=== PATIENT | female | born 1940 | race Caucasian/White ===

== ENCOUNTER 2017-07-30 20:17 | Emergency (ER) | payer MEDICARE, OTHER ==
[2017-07-30 20:26] VITALS: TEMP 98.6; BMI 20.2
--- NOTE | 2017-07-30 20:54 | PDOC ---
History of Present Illness <Neville Alvarado - Last Filed: 07/30/17 22:08> - General History Source: Patient, Family Exam Limitations: No Limitations - History of Present Illness Initial Comments: 07/30/17 23:39 The patient is a 77 year old female, with a significant past medical history of hypertension, gastritis, breast cancer, and anxiety, who presents to the emergency department with epigastric discomfort for approximately 1 week. The patient reports intermittent epigastric discomfort radiating up her chest into her throat and head. She describes her epigastric discomfort as something stuck to her abdominal wall. She reports some nausea, but denies any vomiting, diarrhea, or constipation. Patient reports decreased appetite, but states her symptoms are not related to food. Patient endorses mild headache, but denies any changes in vision, numbness, weakness, tingling, or LOC. Patient reports taking Advil for her discomfort with mild relief of symptoms. Patient states her symptoms are usually brought on by stress. She reports some nasal congestion , sore throat, and shortness of breath, but denies any fever, chills, cough, leg swelling or dizziness. She denies any chest pain, diaphoresis, or palpitations. She denies any recent travel or sick contacts. Allergies: NKDA Past Surgical History: Appendectomy, Cholecystectomy, Cardiac catheterization, spinal sx Social History: Non smoker. No ETOH or recreational drug use. PCP: Dr. Mamie Burr <Page Cortes - Last Filed: 07/30/17 23:40> - General Chief Complaint: Weakness Stated Complaint: FATIGUE Time Seen by Provider: 07/30/17 20:44 Past History - Past Medical History Cancer: Yes (BREAST rt) Cardiac Disorders: Yes COPD: No HTN: Yes - Surgical History Abdominal Surgery: Yes (CHOLYCYSTECTOMY) Cardiac Surgery: Yes (CATHETERIZATION) Cholecystectomy: Yes Neurologic Surgery: Yes (SPINAL SX) - Immunization History Td Vaccination: Yes Immunization Up to Date: Yes - Suicide/Smoking/Psychosocial Hx Smoking Status: No Smoking History: Never smoked Years of Tobacco Use: 0 Have you smoked in the past 12 months: No Number of Cigarettes Smoked Daily: 0 Cigars Per Day: 0 Hx Alcohol Use: No Drug/Substance Use Hx: No Substance Use Type: None Hx Substance Use Treatment: No <Neville Alvarado - Last Filed: 07/30/17 22:08> <Page Cortes - Last Filed: 07/30/17 23:40> - Past Medical History Allergies/Adverse Reactions: Allergies Allergy/AdvReac Type Severity Reaction Status Date / Time No Known Drug Allergies Allergy Verified 07/30/17 20:23 SHRIMP Allergy Uncoded 07/30/17 20:23 Home Medications: Ambulatory Orders Lisinopril [Prinivil] 20 mg PO DAILY 12/31/15 Tamoxifen Citrate 20 mg PO DAILY 12/31/15 Calcium Carbonate/Vitamin D3 [Oysco D Tablet] 1 each PO DAILY 03/05/16 Ranitidine [Zantac -] 150 mg PO DAILY #30 tablet 03/05/16 Review of Systems - Review of Systems Able to Perform ROS?: Yes Comments:: 07/30/17 23:39 CONSTITUTIONAL: No reported: Fever, Chills, Diaphoresis, Generalized Weakness, Malaise, Loss of Appetite HEENT: +Nasal congestion, +throat discomfort No reported: Rhinorrhea, Throat Swelling, Difficulty Swallowing, Mouth Swelling , Ear Pain, Eye Pain, Visual Changes CARDIOVASCULAR: No reported: Chest Pain, Syncope, Palpitations, Irregular Heart Rate, Lightheadedness, Peripheral Edema RESPIRATORY: +Shortness of breath No reported: Cough, SOB with Exertion, Orthopnea, Wheezing, Stridor, Hemoptysis GASTROINTESTINAL: +Nausea, +abdominal pain(epigastric) No reported: Abdominal Distension, Vomiting, Diarrhea, Constipation, Melena, Hematochezia GENITOURINARY: No reported: Dysuria, Frequency, Urgency, Hesitancy, Flank Pain, Genital Pain MUSCULOSKELETAL: +neck discomfort No reported: Myalgia, Arthralgia, Joint Swelling, Back pain, Neck Pain SKIN: No reported: Rash, Itching, Pallor HEMEATOLOGIC/IMMUNOLOGIC: No reported: Easy Bleeding, Easy Bruising, Lymphadenopathy, Frequent infections ENDOCRINE: +Decreased appetite No reported: Unexplained Weight Gain, Unexplained Weight Loss, Heat Intolerance , Cold Intolerance NEUROLOGIC: +Headache No reported: Focal Weakness, Paresthesias, Vertigo, Lightheadedness, Unsteady Gait, Seizure, Mental Status Changes, Incontinence PSYCHIATRIC: No reported: Anxiety, Depression <Page Cotres - Last Filed: 07/30/17 23:40> *Physical Exam - Vital Signs Last Vital Signs Temp Pulse Resp BP Pulse Ox 98.6 F 72 18 158/99 99 07/30/17 20:20 07/30/17 20:20 07/30/17 20:20 07/30/17 20:20 07/30/17 20:20 <Neville Alvarado - Last Filed: 07/30/17 22:08> - Vital Signs Last Vital Signs Temp Pulse Resp BP Pulse Ox 98.6 F 78 16 154/92 96 07/30/17 20:20 07/30/17 22:25 07/30/17 22:25 07/30/17 22:25 07/30/17 22:25 - Physical Exam Comments: 07/30/17 23:39 GENERAL: The patient is awake, alert, and fully oriented, Nontoxic - in no acute distress. HEAD: Normocephalic, atraumatic. EYES: extraocular movements intact, sclera anicteric, conjunctiva clear. ENT: Normal voice, Moist mucous membranes. NECK: Normal range of motion, supple LUNGS: Breath sounds equal, clear to auscultation bilaterally. No wheezes, no rhonchi, no rales. HEART: Regular rate and rhythm, normal S1 and S2 without murmur, rub or gallop. ABDOMEN: Soft, nontender, normoactive bowel sounds. No guarding, no rebound. . No CVA tenderness EXTREMITIES: Normal range of motion, no edema. No clubbing or cyanosis. No cords, erythema, or tenderness. NEUROLOGICAL: No facial assymetry, Normal speech, PSYCH: Normal mood, normal affect. SKIN: Warm, Dry, normal turgor, <Cortes,Giomilsy - Last Filed: 07/30/17 23:40> Heart Score/ECG Review - ECG Impressions Comment:: 07/30/17 21:42 Twelve-lead EKG was performed and reviewed by me. There is normal sinus rhythm with a normal rate. The axis is normal. The intervals are normal. There is normal R wave progression twi in V3 and V4 twi present on anterior leads on previous ekg <Neville Alvarado - Last Filed: 07/30/17 22:08> ED Treatment Course - LABORATORY CBC & Chemistry Diagram: 07/30/17 21:18 07/30/17 21:18 <Neville Alvarado - Last Filed: 07/30/17 22:08> - LABORATORY CBC & Chemistry Diagram: 07/30/17 21:18 07/30/17 21:18 - ADDITIONAL ORDERS Additional order review: Laboratory Results 07/30/17 07/30/17 07/30/17 21:50 21:18 21:18 Sodium Potassium Chloride Carbon Dioxide Anion Gap BUN Creatinine Creat Clearance w eGFR Random Glucose Calcium Total Bilirubin AST ALT Alkaline Phosphatase Creatine Kinase 61 Troponin I 0.05 Total Protein Albumin Lipase 259 TSH Urine Color Lt. yellow Urine Appearance Clear Urine pH 7.0 Ur Specific [place] <= 1.005 Urine Protein Negative Urine Glucose (UA) Negative Urine Ketones Negative Urine Blood 1+ H Urine Nitrite Negative Urine Bilirubin Negative Urine Urobilinogen 0.2 Urine WBC (Auto) <1 Urine RBC (Auto) 2 07/30/17 21:18 Sodium 134 L Potassium 3.8 Chloride 101 Carbon Dioxide 28 Anion Gap 5 L BUN 12 Creatinine 0.7 Creat Clearance w eGFR > 60 Random Glucose 110 H Calcium 8.6 Total Bilirubin 0.3 AST 16 ALT 23 Alkaline Phosphatase 45 Creatine Kinase Troponin I Total Protein 8.8 H D Albumin 4.2 Lipase TSH 2.38 Urine Color Urine Appearance Urine pH Ur Specific [place] Urine Protein Urine Glucose (UA) Urine Ketones Urine Blood Urine Nitrite Urine Bilirubin Urine Urobilinogen Urine WBC (Auto) Urine RBC (Auto) 07/30/17 21:18 RBC 4.21 MCV 96.0 MCHC 34.4 RDW 13.9 MPV 7.5 D Neutrophils % 66.5 Lymphocytes % 25.8 Monocytes % 5.9 Eosinophils % 1.0 Basophils % 0.8 - Medications Given in the ED: ED Medications Discontinued Medications Generic Name Dose Route Start Last Admin Trade Name Susanne PRN Reason Stop Dose Admin Acetaminophen 650 mg 07/30/17 21:41 07/30/17 22:01 Tylenol - PO 07/30/17 21:42 650 mg ONCE ONE Administration <Page Cortes - Last Filed: 07/30/17 23:40> Medical Decision Making - Medical Decision Making 07/30/17 20:54 77y F hx of breast ca on tamixfen, cad, htn, presents with interemitnt epigastirc pain that radiates up to the throat, nasal congestion, mild headache , without fevers/chills, leg swelling. pt denies any complaints currently beside a mild headache pts exam unremarkble and well appearing differential includes gerd, viral syndrome consider ACS - will obtain screening ekg consider anemia, metabolic dernagement occult uti will obtain labs, ua barb reassess 07/30/17 22:08 pts labs reviewed noted for slightly eelvated protein o f8.8 - barb lhvae pt fu this up as an outpatient trop neg x 1 UA negative pt asypmtpmatoic currently ?consier possible gerd/gastritis will refer pt back to her GI doctor retur nprecautions were discussed I discussed the physical exam findings, ancillary test results and final diagnoses with the patient. I answered all of the patient's questions. The patient was satisfied with the care received and felt comfortable with the discharge plan and treatment plan. The patient will call their primary care physician within 24 hours to arrange follow-up and will return to the Emergency Department with any new, persistent or worsening symptoms. <Neville Alvarado - Last Filed: 07/30/17 22:08> *DC/Admit/Observation/Transfer - Discharge Dispostion Admit: No <Neville Alvarado - Last Filed: 07/30/17 22:08> - Attestations Scribe Attestion: 07/30/17 23:39 Documentation prepared by Page Cortes, acting as medical billing associate for Neville Alvarado MD. <Page Cortes - Last Filed: 07/30/17 23:40> Diagnosis at time of Disposition: Epigastric pain - Discharge Dispostion Disposition: HOME Condition at time of disposition: Improved - Referrals Referrals: Mamie Burr MD [Primary Care Provider] - Kennedy Browning DO [Staff Physician] - - Patient Instructions Printed Discharge Instructions: DI for Epigastric Pain Additional Instructions: Regrese al departamento de emergencia de inmediato con CUALQUIER sntoma nuevo, persistente o que empeora, incluidos los clarita abdominales recurrentes, las fiebres, los escalofros, la incapacidad para tolerar la ingesta oral o cualquier otra inquietud. Mantngase alejado del alcohol, las comidas picantes, la cafena y los alimentos cidos / amargos. [place] maalox si tiene quema para alivio. DEBE llamar y hacer un seguimiento con reid mdico y gastroenterlogo dentro de los 5 gómez para herman evaluacin ms profunda de winter sntomas. Reid visita al departamento de emergencia no est completa sin un seguimiento con reid mdico para la reevaluacin. Los resultados fueron discutidos con usted. Asegrese de que reid mdico revise los resultados de reid evaluacin de emergencia. Return to the emergency department immediately with ANY new, persistent or worsening symptoms including any recurrent abdominal pain, fevers, chills, inability to tolerate oral intake or any other concerns. Stay away from alcohol, spicy foods, caffeine, acidic/sour foods. Take maalox if you have burning for relief. You MUST call and follow up with your doctor and engineering group manager within 5 days for further evaluation of your symptoms. Your emergency department visit is not complete without a followup with your doctor for reevaluation. Results were discussed with you. Please make sure your doctor reviews the results of your emergency evaluation. Print Language: LAO - Post Discharge Activity
[2017-07-30 21:30] LABS: BASOPHIL 0.8 % (0-2.0); MCHC 34.4 g/dl (32.0-36.0); MEAN PLT VOLUME 7.5 fl (7.5-11.1); NEUTROPHILS 66.5 % (42.8-82.8); PLATELET COUNT 195 K/MM3 (134-434); RDW 13.9 % (11.6-15.6); WHITE BLOOD COUNT 6.9 K/mm3 (4.0-10.0)
[2017-07-30] MEDS ORDERED: ACETAMINOPHEN 325 MG TABLET (FP) PO ONE (21:41)
[2017-07-30 21:54] LABS: ALBUMIN 4.2 g/dl (3.4-5.0); ANION GAP 5 (8-16); BILIRUBIN,TOTAL 0.3 mg/dL (0.2-1.0); CALCIUM 8.6 mg/dL (8.5-10.1); CO2 28 mmol/L (21-32); CREATININE 0.7 mg/dL (0.55-1.02); GLUCOSE,RANDOM 110 mg/dL (74-106); SGOT/AST 16 U/L (15-37); SGPT/ALT 23 U/L (12-78); TOT PROT 8.8 g/dl (6.4-8.2)
[2017-07-30 21:55] LABS: TROPONIN I 0.05 ng/ml (0.00-0.05)
[2017-07-30] MEDS ORDERED: ACETAMINOPHEN 325 MG TABLET (FP) ONE (21:58)
[2017-07-30 22:00] LABS: URINE APPEARANCE CLEAR; URINE BILIRUBIN NEGATIVE (NEGATIVE); URINE BLOOD 1+ (NEGATIVE); URINE COLOR LT. YELLOW; URINE GLUCOSE (UA) NEGATIVE (NEGATIVE); URINE KETONE NEGATIVE (NEGATIVE); URINE NITRITE NEGATIVE (NEGATIVE); URINE PROTEIN NEGATIVE (NEGATIVE); URINE UROBILINOGEN 0.2 mg/dL (0.2-1.0)
[2017-07-30 22:03] LABS: ALK PHOS 45 U/L (45-117); THYROID STIMULATING HORMONE 2.38 uIU/ml (0.358-3.74)
[2017-07-30 22:13] LABS: URINE RBC 2 /hpf (0-3); URINE WBC <1 /hpf (3-5)
[2017-07-30 22:26] VITALS: BP 154/92; PULSE 78
--- NOTE | 2017-07-31 08:34 | EKG ---
Test Reason : Blood Pressure : / mmHG Vent. Rate : 063 BPM Atrial Rate : 063 BPM P-R Int : 156 ms QRS Dur : 076 ms QT Int : 446 ms P-R-T Axes : 058 040 104 degrees QTc Int : 456 ms NORMAL SINUS RHYTHM T WAVE ABNORMALITY, CONSIDER ANTERIOR ISCHEMIA ABNORMAL ECG WHEN COMPARED WITH ECG OF 05-MAR-2016 13:05, NONSPECIFIC T WAVE ABNORMALITY, IMPROVED IN INFERIOR LEADS Confirmed by BLANQUITA ERNANDEZ MD ([id number]) on 07/31/2017 8:34:27 AM Referred By: Confirmed By:BLANQUITA ERNANDEZ MD
[2017-07-31 12:34] LABS: URINE LEUK ESTERASE Negative (NEGATIVE)
== END 2017-07-30 22:27 | disposition home or self-care (01) ==
LOC: JER 20:17
DX: R10.13 Epigastric pain (principal); I10 Essential (primary) hypertension; Z85.3 Personal history of malignant neoplasm of breast; F41.9 Anxiety disorder, unspecified; K29.70 Gastritis, unspecified, without bleeding
CPT/HCPCS: 36415; 80053; 81003; 81015; 82550; 83690; 84443; 84484; 85025; 93005; 93010; 99282-25

== ENCOUNTER 2017-09-22 18:45 | Emergency (ER) | payer MEDICARE, OTHER ==
[2017-09-22 19:07] VITALS: BP 155/101; PULSE 58; TEMP 98.4; BMI 29.8
--- NOTE | 2017-09-22 19:09 | PDOC ---
Rapid Medical Evaluation Time Seen by Provider: 09/22/17 19:00 Medical Evaluation: Allergies Allergy/AdvReac Type Severity Reaction Status Date / Time No Known Drug Allergies Allergy Verified 07/30/17 20:23 SHRIMP Allergy Uncoded 07/30/17 20:23 09/22/17 19:01 The patient presents with a chief complaint of: Pleuritic chest pain d/t cough for the last three weeks. Has chills, body aches. Given abx by PCP. Unsure which abx it was. Did not get flu shot I have performed a brief in-person evaluation of this patient; Pertinent physical exam findings: CTAB I have ordered the following: CBC, CMP, PT/INR cardiac labs, EKg, CXr The patient will proceed to the ED for further evaluation.
[2017-09-22 19:49] LABS: BASO % 0.5 % (0-2.0); EOS % 2.3 % (0-4.5); HEMATOCRIT 39.4 % (32.4-45.2); HEMOGLOBIN 13.4 GM/dL (10.7-15.3); LYMPH % 26.9 % (8-40); MCH 32.5 pg (25.7-33.7); MEAN CELL VOLUME 95.6 fl (80-96); MEAN PLT VOLUME 7.2 fl (7.5-11.1); MONO % 7.9 % (3.8-10.2); NEUT % 62.4 % (42.8-82.8); PLATELET COUNT 231 K/MM3 (134-434); RBC 4.12 M/mm3 (3.60-5.2); RDW 13.5 % (11.6-15.6); WHITE BLOOD COUNT 5.6 K/mm3 (4.0-10.0)
[2017-09-22 20:15] LABS: INR 0.97 (0.82-1.09)
[2017-09-22 20:42] LABS: ALBUMIN 3.3 g/dl (3.4-5.0); ALK PHOS 35 U/L (45-117); ANION GAP 9 (8-16); BILIRUBIN,TOTAL 0.2 mg/dL (0.2-1.0); BLOOD UREA NITROGEN 16 mg/dL (7-18); CHLORIDE 100 mmol/L (98-107); CO2 25 mmol/L (21-32); CREATININE 0.7 mg/dL (0.55-1.02); GLUCOSE,RANDOM 100 mg/dL (74-106); POTASSIUM 4.1 mmol/L (3.5-5.1); SGOT/AST 19 U/L (15-37); SGPT/ALT 21 U/L (12-78); SODIUM 134 mmol/L (136-145); TOT PROT 6.9 g/dl (6.4-8.2)
--- NOTE | 2017-09-22 21:49 | PDOC ---
History of Present Illness - General History Source: Patient Exam Limitations: No Limitations - History of Present Illness Initial Comments: 09/23/17 01:01 The patient is a 77 year old female with a significant PMH of CAD, breast CA, and HTN who presents to the emergency department with her daughter with worsening shortness of breath and productive cough beginning approximately 3 weeks ago. She notes associated chest pain and back pain with her cough, which is aggravated by inspiration. The patients daughter reports that the patient was given a 7-day antibiotic course by her PCP which she finished to some relief. The patients daughter also notes that the patient stated she had dysuria and vaginal irritation about 1 week ago. She reports the patient received VESIcare and cream from her [employer]FFIC [employer] earlier in the week. The patient denies headache and dizziness. Denies fever, chills, nausea, vomit, diarrhea and constipation. Denies frequency, urgency and hematuria. Allergies: NKDA Past surgical history: Cholecystectomy. Cardiac catheterization. Spinal surgery. Social history: No reported cigarette, alcohol, or drug use. PCP: Dr. Mamie Burr <Roscoe Paniagua - Last Filed: 09/23/17 01:01> - General History Source: Patient <AspenDany - Last Filed: 09/23/17 01:12> - General Chief Complaint: Cold Symptoms Stated Complaint: CHEST PAIN Time Seen by Provider: 09/22/17 19:00 Past History <Roscoe Paniagua - Last Filed: 09/23/17 01:01> - Past Medical History Cancer: Yes (BREAST rt) Cardiac Disorders: Yes COPD: No DVT: No HTN: Yes - Surgical History Abdominal Surgery: Yes (CHOLYCYSTECTOMY) Cardiac Surgery: Yes (CATHETERIZATION) Cholecystectomy: Yes Neurologic Surgery: Yes (SPINAL SX) - Immunization History Td Vaccination: Yes Immunization Up to Date: Yes - Suicide/Smoking/Psychosocial Hx Smoking Status: No Smoking History: Never smoked Years of Tobacco Use: 0 Have you smoked in the past 12 months: No Number of Cigarettes Smoked Daily: 0 Cigars Per Day: 0 Hx Alcohol Use: No Drug/Substance Use Hx: No Substance Use Type: None Hx Substance Use Treatment: No <Dany Owens - Last Filed: 09/23/17 01:12> - Past Medical History Allergies/Adverse Reactions: Allergies Allergy/AdvReac Type Severity Reaction Status Date / Time No Known Drug Allergies Allergy Verified 09/22/17 19:03 SHRIMP Allergy Uncoded 09/22/17 19:03 Home Medications: Ambulatory Orders Lisinopril [Prinivil] 20 mg PO DAILY 12/31/15 Tamoxifen Citrate 20 mg PO DAILY 12/31/15 Calcium Carbonate/Vitamin D3 [Oysco D Tablet] 1 each PO DAILY 03/05/16 Ranitidine [Zantac -] 150 mg PO DAILY #30 tablet 03/05/16 Meclizine HCl 25 mg PO TID #30 tablet 09/23/17 Review of Systems - Review of Systems Able to Perform ROS?: Yes Comments:: 09/23/17 01:02 CONSTITUTIONAL: Absent: fever, chills, diaphoresis, generalized weakness, malaise, loss of appetite HEENT: Absent: rhinorrhea, nasal congestion, throat pain, throat swelling, difficulty swallowing, mouth swelling, ear pain, eye pain, visual Changes CARDIOVASCULAR: (+) Chest pain only with cough and deep inspiration. Absent: chest pain, syncope, palpitations, irregular heart rate, lightheadedness , peripheral edema RESPIRATORY: (+) Shortness of breath. (+) Productive cough. Absent: dyspnea with exertion, orthopnea, wheezing, stridor, hemoptysis GASTROINTESTINAL: Absent: abdominal pain, abdominal distension, nausea, vomiting, diarrhea, constipation, melena, hematochezia GENITOURINARY: (+) Dysuria and vaginal irritation (resolved). Absent: frequency, urgency, hesitancy, hematuria, flank pain. MUSCULOSKELETAL: (+) Back pain only with cough and deep inspiration. Absent: myalgia, arthralgia, joint swelling SKIN: Absent: rash, itching, pallor HEMATOLOGIC/IMMUNOLOGIC: Absent: easy bleeding, easy bruising, lymphadenopathy, frequent infections ENDOCRINE: Absent: unexplained weight gain, unexplained weight loss, heat intolerance, cold intolerance NEUROLOGIC: Absent: headache, focal weakness or paresthesias, dizziness, unsteady gait, seizure, mental status changes, bladder or bowel incontinence PSYCHIATRIC: Absent: anxiety, depression, suicidal or homicidal ideation, hallucinations. <Roscoe Paniagua - Last Filed: 09/23/17 01:01> *Physical Exam - Vital Signs Last Vital Signs Temp Pulse Resp BP Pulse Ox 98.4 F 58 L 16 155/101 96 09/22/17 19:04 09/22/17 19:04 09/22/17 19:04 09/22/17 19:04 09/22/17 19:04 - Physical Exam Comments: 09/23/17 01:02 GENERAL: Well developed, well nourished. Awake and alert. No acute distress. HEENT: Normocephalic, atraumatic. PERRLA, EOMI. No conjunctival pallor. Sclera are non- icteric. Moist mucous membranes. Oropharynx is clear. NECK: Supple. Full ROM. No JVD. Carotid pulses 2+ and symmetric, without bruits. No thyromegaly. No lymphadenopathy. CARDIOVASCULAR: Regular rate and rhythm. No murmurs, rubs, or gallops. Distal pulses are 2+ and symmetric. PULMONARY: No evidence of respiratory distress. Lungs clear to auscultation bilaterally. No wheezing, rales or rhonchi. ABDOMINAL: Soft. Non-tender. Non-distended. No rebound or guarding. No organomegaly. Normoactive bowel sounds. MUSCULOSKELETAL Normal range of motion at all joints. No bony deformities or tenderness. No CVA tenderness. EXTREMITIES: No cyanosis. No clubbing. No edema. No calf tenderness. SKIN: Warm and dry. Normal capillary refill. No rashes. No jaundice. NEUROLOGICAL: Alert, awake, appropriate. Cranial nerves 2-12 intact. No deficits to light touch and temperature in face, upper extremities and lower extremities. No motor deficits in the in face, upper extremities and lower extremities. Normoreflexic in the upper and lower extremities. Normal speech. Toes are downgoing bilaterally. Gait is normal without ataxia. PSYCHIATRIC: Cooperative. Good eye contact. Appropriate mood and affect. <Roscoe Paniagua - Last Filed: 09/23/17 01:01> - Vital Signs Last Vital Signs Temp Pulse Resp BP Pulse Ox 98.4 F 58 L 16 155/101 96 09/22/17 19:04 09/22/17 19:04 09/22/17 19:04 09/22/17 19:04 09/22/17 19:04 <Dany Owens - Last Filed: 09/23/17 01:12> ED Treatment Course - LABORATORY CBC & Chemistry Diagram: 09/22/17 19:25 09/22/17 19:25 - ADDITIONAL ORDERS Additional order review: Laboratory Results 09/22/17 09/22/17 09/22/17 19:25 19:25 19:25 PT with INR 11.00 INR 0.97 Sodium 134 L Potassium 4.1 Chloride 100 Carbon Dioxide 25 Anion Gap 9 BUN 16 Creatinine 0.7 Creat Clearance w eGFR > 60 Random Glucose 100 Calcium 8.0 L Total Bilirubin 0.2 D AST 19 ALT 21 Alkaline Phosphatase 35 L Creatine Kinase 35 Troponin I 0.02 Total Protein 6.9 Albumin 3.3 L 09/22/17 23:13 Influenza Types A,B Antigen (GIOVANA) - Preliminary Nasopharyngeal Swab - Preliminary 09/22/17 19:25 RBC 4.12 MCV 95.6 MCHC 34.0 RDW 13.5 MPV 7.2 L Neutrophils % 62.4 Lymphocytes % 26.9 Monocytes % 7.9 Eosinophils % 2.3 D Basophils % 0.5 - Medications Given in the ED: ED Medications Discontinued Medications Generic Name Dose Route Start Last Admin Trade Name Freq PRN Reason Stop Dose Admin Meclizine HCl 25 mg 09/22/17 22:10 09/22/17 23:13 Antivert - PO 09/22/17 22:11 25 mg ONCE STA Administration <Roscoe Paniagua - Last Filed: 09/23/17 01:01> - LABORATORY CBC & Chemistry Diagram: 09/22/17 19:25 09/22/17 19:25 - ADDITIONAL ORDERS Additional order review: Laboratory Results 09/22/17 09/22/17 09/22/17 19:25 19:25 19:25 PT with INR 11.00 INR 0.97 Sodium 134 L Potassium 4.1 Chloride 100 Carbon Dioxide 25 Anion Gap 9 BUN 16 Creatinine 0.7 Creat Clearance w eGFR > 60 Random Glucose 100 Calcium 8.0 L Total Bilirubin 0.2 D AST 19 ALT 21 Alkaline Phosphatase 35 L Creatine Kinase 35 Troponin I 0.02 Total Protein 6.9 Albumin 3.3 L 09/22/17 19:25 RBC 4.12 MCV 95.6 MCHC 34.0 RDW 13.5 MPV 7.2 L Neutrophils % 62.4 Lymphocytes % 26.9 Monocytes % 7.9 Eosinophils % 2.3 D Basophils % 0.5 <Dany Owens - Last Filed: 09/23/17 01:12> Medical Decision Making - Medical Decision Making 09/23/17 01:11 Dr. Owens: The scribe's documentation has been prepared under my direction and personally reviewed by me in its entirery. I confirm that the note above accurately reflects all work, treatment, procedures, and medical decision making performed by me. All studies including influenza are negative. patient feels better after meclizine 25mg. Patient will discharged and prescription sent to her pharmacy <Dany Owens - Last Filed: 09/23/17 01:12> *DC/Admit/Observation/Transfer - Attestations Scribe Attestion: 09/23/17 01:02 Documentation prepared by Roscoe Paniagua, acting as medical management trainer for Dany Owens DO. <Roscoe Paniagua - Last Filed: 09/23/17 01:01> - Discharge Dispostion Admit: No <Dany Owens - Last Filed: 09/23/17 01:12> Diagnosis at time of Disposition: Cough - Discharge Dispostion Disposition: HOME Condition at time of disposition: Stable - Prescriptions Prescriptions: Meclizine HCl 25 mg PO TID #30 tablet - Referrals Referrals: Mamie Burr MD [Primary Care Provider] - - Patient Instructions Printed Discharge Instructions: DI for Cough -- Adult Additional Instructions: take medication as directed. Follow up with your primary care doctor for re- evaluation. Return if any problems Print Language: PASHTO - Post Discharge Activity
[2017-09-22] MEDS ORDERED: MECLIZINE HCL 25 MG TABLET (FP) PO STA (22:10)
[2017-09-22] MEDS ORDERED: MECLIZINE HCL 25 MG TABLET (FP) ONE (23:04)
--- NOTE | 2017-09-23 09:45 | EKG ---
Test Reason : Blood Pressure : / mmHG Vent. Rate : 058 BPM Atrial Rate : 058 BPM P-R Int : 134 ms QRS Dur : 074 ms QT Int : 450 ms P-R-T Axes : 036 040 230 degrees QTc Int : 441 ms SINUS BRADYCARDIA T WAVE ABNORMALITY, CONSIDER INFERIOR ISCHEMIA T WAVE ABNORMALITY, CONSIDER ANTERIOR ISCHEMIA ABNORMAL ECG WHEN COMPARED WITH ECG OF 30-JUL-2017 21:07, T WAVE INVERSION NOW EVIDENT IN INFERIOR LEADS Confirmed by ÁNGELA KOTHARI MD ([id number]) on 09/23/2017 9:45:01 AM Referred By: Confirmed By:ÁNGELA KOTHARI MD
== END 2017-09-23 03:07 | disposition home or self-care (01) ==
LOC: JER 18:45
DX: R05 Cough (principal); I25.10 Atherosclerotic heart disease of native coronary artery without angina pectoris; Z98.61 Coronary angioplasty status; I10 Essential (primary) hypertension; Z85.3 Personal history of malignant neoplasm of breast; Z90.49 Acquired absence of other specified parts of digestive tract
CPT/HCPCS: 36415; 71046-TC; 80053; 82550; 84484; 85025; 85610; 87804; 93005; 93010; 99282-25

== ENCOUNTER 2018-02-26 23:27 | Observation (INO) | payer MEDICARE, OTHER ==
[2018-02-26 23:35] VITALS: BMI 26.0
[2018-02-27 00:46] LABS: BASO % 0.4 % (0-2.0); EOS % 0.2 % (0-4.5); HEMATOCRIT 38.1 % (32.4-45.2); HEMOGLOBIN 12.7 GM/dL (10.7-15.3); LYMPH % 6.7 % (8-40); MCH 31.7 pg (25.7-33.7); MCHC 33.2 g/dl (32.0-36.0); MEAN CELL VOLUME 95.5 fl (80-96); MEAN PLT VOLUME 6.8 fl (7.5-11.1); NEUT % 89.7 % (42.8-82.8); PLATELET COUNT 230 K/MM3 (134-434); RBC 3.99 M/mm3 (3.60-5.2); RDW 13.6 % (11.6-15.6); WHITE BLOOD COUNT 13.7 K/mm3 (4.0-10.0)
[2018-02-27 00:48] LABS: URINE APPEARANCE CLEAR; URINE BILIRUBIN NEGATIVE (<2.0 mg/dL); URINE COLOR YELLOW; URINE GLUCOSE (UA) NEGATIVE (NEGATIVE); URINE KETONE 1+ (NEGATIVE); URINE LEUK ESTERASE NEGATIVE (NEGATIVE); URINE NITRITE NEGATIVE (NEGATIVE); URINE PROTEIN NEGATIVE (NEGATIVE); URINE UROBILINOGEN NEGATIVE mg/dL (0.2-1.0)
--- NOTE | 2018-02-27 00:53 | PDOC ---
History of Present Illness - General Chief Complaint: Pain Stated Complaint: STOMACH PAIN Time Seen by Provider: 02/27/18 00:53 - History of Present Illness Initial Comments: 78 year old female with PMH of CAD, breast CA (with relapse, currently in remission), and HTN presenting with intermittent abdominal pain since three days prior. She denies trauma to the abdomen, peculiar food ingestion, vomtiign , diarrhea, constiaption, fevers, chills, or other symptoms. 02/27/18 02:28 Past History - Past Medical History Allergies/Adverse Reactions: Allergies Allergy/AdvReac Type Severity Reaction Status Date / Time No Known Drug Allergies Allergy Verified 09/22/17 19:03 SHRIMP Allergy Uncoded 09/22/17 19:03 Home Medications: Ambulatory Orders Lisinopril [Prinivil] 20 mg PO DAILY 12/31/15 Tamoxifen Citrate 20 mg PO DAILY 12/31/15 Calcium Carbonate/Vitamin D3 [Oysco D Tablet] 1 each PO DAILY 03/05/16 Ranitidine [Zantac -] 150 mg PO DAILY #30 tablet 03/05/16 Meclizine HCl 25 mg PO TID PRN 02/27/18 Cancer: Yes (BREAST rt) Cardiac Disorders: Yes CVA: No COPD: No DVT: No HTN: Yes - Surgical History Abdominal Surgery: Yes (CHOLYCYSTECTOMY) Cardiac Surgery: Yes (CATHETERIZATION) Cholecystectomy: Yes Neurologic Surgery: Yes (SPINAL SX) - Immunization History Td Vaccination: Yes Immunization Up to Date: Yes - Suicide/Smoking/Psychosocial Hx Smoking Status: No Smoking History: Never smoked Years of Tobacco Use: 0 Have you smoked in the past 12 months: No Number of Cigarettes Smoked Daily: 0 Cigars Per Day: 0 Information on smoking cessation initiated: No Hx Alcohol Use: No Drug/Substance Use Hx: No Substance Use Type: None Hx Substance Use Treatment: No Review of Systems - Review of Systems Constitutional: No: Chills, Diaphoresis, Fever, Loss of Appetite HEENTM: No: Recent change in vision, Double Vision Respiratory: No: Cough, Orthopnea, Shortness of Breath, Wheezing Cardiac (ROS): No: Chest Pain, Edema, Irregular Heart Rate ABD/GI: Yes: Poor Appetite. No: Diarrhea, Nausea, Vomiting : No: Burning, Dysuria, Discharge, Frequency Musculoskeletal: No: Back Pain, Joint Pain Integumentary: No: Bruising, Lesions, Lumps Neurological: No: Headache, Numbness, Paresthesia Psychiatric: No: Anxiety, Depression Hematologic/Lymphatic: No: Anemia, Blood Clots *Physical Exam - Vital Signs Last Vital Signs Temp Pulse Resp BP Pulse Ox 98 F 80 20 150/75 96 02/26/18 23:31 02/26/18 23:31 02/26/18 23:31 02/26/18 23:31 02/26/18 23:31 - Physical Exam General Appearance: Yes: Nourished, Appropriately Dressed. No: Apparent Distress HEENT: positive: EOMI, DEBBIE, Normal ENT Inspection. negative: Normal Voice Neck: positive: Trachea midline, Normal Thyroid, Supple. negative: Tender, Rigid Respiratory/Chest: positive: Lungs Clear, Normal Breath Sounds. negative: Chest Tender, Respiratory Distress, Accessory Muscle Use Cardiovascular: positive: Regular Rhythm, Regular Rate Gastrointestinal/Abdominal: positive: Normal Bowel Sounds, Flat, Soft ( epigastric and r). negative: Tender Rectal Exam: positive: heme negative stool, normal exam. negative: hemorrhoids Lymphatic: negative: Adenopathy, Tenderness Musculoskeletal: negative: Normal Inspection, CVA Tenderness Extremity: positive: Normal Capillary Refill, Normal Inspection, Normal Range of Motion. negative: Tender Integumentary: positive: Normal Color, Dry, Warm Neurologic: positive: Fully Oriented, Alert, Normal Mood/Affect, Normal Response , Motor Strength 5/5 ED Treatment Course - LABORATORY CBC & Chemistry Diagram: 02/27/18 07:00 02/27/18 07:00 - ADDITIONAL ORDERS Additional order review: 02/27/18 00:40 RBC 3.99 MCV 95.5 MCHC 33.2 RDW 13.6 MPV 6.8 L Neutrophils % 89.7 H D Lymphocytes % 6.7 L D Monocytes % 3.0 L Eosinophils % 0.2 D Basophils % 0.4 Medical Decision Making - Medical Decision Making 78 year old female with intermittent abdominal pain concerning for likely renal stone as she has a benign abdominal exam, afebrile, and has no previou sabdominal surgeries. Spiral CT demonstrating pelvic enteritis concernign for infection vs. ischemic bowel vs. IBD. Patient admitted for further orkuo and evaluation. Labs did not corroborate ischemia. Abx deferred by admitting team. 02/28/18 04:23 *DC/Admit/Observation/Transfer Diagnosis at time of Disposition: Enteritis - Referrals - Patient Instructions - Post Discharge Activity
[2018-02-27 01:02] LABS: EPI CELLS RARE /HPF (FEW); URINE MUCUS RARE
[2018-02-27 01:13] LABS: ALBUMIN 3.1 g/dl (3.4-5.0); ANION GAP 9 (8-16); BILIRUBIN,TOTAL 0.4 mg/dL (0.2-1.0); BLOOD UREA NITROGEN 15 mg/dL (7-18); CALCIUM 8.1 mg/dL (8.5-10.1); CHLORIDE 100 mmol/L (98-107); CO2 23 mmol/L (21-32); CREATININE 0.6 mg/dL (0.55-1.02); GLUCOSE,RANDOM 144 mg/dL (74-106); POTASSIUM 4.1 mmol/L (3.5-5.1); SGOT/AST 18 U/L (15-37); SGPT/ALT 18 U/L (12-78); SODIUM 132 mmol/L (136-145); TOT PROT 6.7 g/dl (6.4-8.2)
[2018-02-27 01:14] LABS: LIPASE 285 U/L (73-393)
--- NOTE | 2018-02-27 01:15 | PDOC ---
Attending Attestation - HPI HPI: 02/27/18 05:46 The patient is a 78 year old female with past medical history of breast CA, HTN and CAD presents to the emergency department with abdominal pain. The patient presents with a 3 day worsening abdominal pain, without relief. Denies fever, chills, cough or a headache. Denies chest pain or shortness of breath. Denies back pain or neck pain. Denies dysuria, hematuria, frequency or urgency to urinate. Denies nausea, vomiting, diarrhea or constipation. Allergies: NKDA PCP: Mamie Stevens MD - Physicial Exam PE: 02/27/18 05:46 Agree with the resident. <Francine Landurm - Last Filed: 02/27/18 05:46> - Resident Resident Name: Ese Kay - ED Attending Attestation I have performed the following: I have examined & evaluated the patient, The case was reviewed & discussed with the resident, I agree w/resident's findings & plan - Medical Decision Making 02/27/18 03:22 Patient Name: YOEL GUTIÉRREZ THIS IS A PRELIMINARY REPORT FROM [facility] DATE OF SERVICE: 2018-02-27 01:33:56 IMAGES: 491 EXAM: CT abdomen and pelvis without contrast HISTORY: Upper abdominal pain COMPARISON: None. FINDINGS: Lung bases are clear. The visualized cardiac chambers are normal size and configuration. Status post cholecystectomy without biliary dilation. Normal unenhanced liver, pancreas, spleen, adrenal glands and kidneys. The stomach and abdominal small and large bowel are normal. There is no aortic aneurysm. There is no significant retroperitoneal lymphadenopathy. Multiple mildly inflamed pelvic small bowel loops which could be due to infection, inflammatory bowel disease or ischemia.. Pelvic large bowel and appendix are normal. The uterus and adnexal structures are normal. Urinary bladder is unremarkable. There is a small amount of pelvic free fluid. No discrete pelvic lymphadenopathy is identified. There is an old appearing compression fracture T8. Status post T12 vertebroplasty. IMPRESSION: Pelvic enteritis may be due to infection, inflammatory bowel disease or ischemia. 02/27/18 06:28 Pt will be admitted to med surg. Hospitalists will further evaluate patient. At this time, we will not start abx. Surg consult requested for the morning. <Pebbles Veliz - Last Filed: 02/27/18 06:30>
[2018-02-27 01:16] LABS: ALK PHOS 33 U/L (45-117)
--- NOTE | 2018-02-27 03:00 | HP ---
CHIEF COMPLAINT: abdominal pain PCP: Suzanne Burr HISTORY OF PRESENT ILLNESS: This is a 78 year old female with a past medical history of R BrCA and HTN who presented to the ED with sudden onset severe crampy upper abdominal pain x 1 day. She states the pain shoots across the top of her abdomen and back. + nausea , denies vomiting, diarrhea or constipation. Pt daughter also reports body aches , "bone pain" for the past several weeks. She was seen by her PCP for this with no treatment advised. ER course was notable for: (1) WBC 13.7 (2) CT scan with possible pelvic enteritis (3) Sodium 132 Recent Travel: pt denies PAST MEDICAL HISTORY: R BrCA, HTN, osteoporosis PAST SURGICAL HISTORY: R mastectomy then R lumpectomy when CA recurred spinal surgery Social History: Smoking: pt denies Alcohol: pt denies Drugs: pt denies Family History: unk Allergies No Known Drug Allergies Allergy (Verified 09/22/17 19:03) SHRIMP Allergy (Uncoded 09/22/17 19:03) HOME MEDICATIONS: 3 Medication Instructions Recorded Lisinopril [Prinivil] 20 mg PO DAILY 12/31/15 Tamoxifen Citrate 20 mg PO DAILY 12/31/15 Calcium Carbonate/Vitamin D3 1 each PO DAILY 03/05/16 [Oysco D Tablet] Ranitidine [Zantac -] 150 mg PO DAILY #30 tablet 03/05/16 Meclizine HCl 25 mg PO TID PRN 02/27/18 REVIEW OF SYSTEMS CONSTITUTIONAL: Absent: fever, chills, diaphoresis, generalized weakness, malaise, loss of appetite, weight change HEENT: Absent: rhinorrhea, nasal congestion, throat pain, throat swelling, difficulty swallowing, mouth swelling, ear pain, eye pain, visual changes CARDIOVASCULAR: Absent: chest pain, syncope, palpitations, irregular heart rate, lightheadedness , peripheral edema RESPIRATORY: Absent: cough, shortness of breath, dyspnea with exertion, orthopnea, wheezing, stridor, hemoptysis GASTROINTESTINAL: Present: abdominal pain, nausea Absent: abdominal distension, vomiting, diarrhea, constipation, melena, hematochezia GENITOURINARY: Absent: dysuria, frequency, urgency, hesitancy, hematuria, flank pain, genital pain MUSCULOSKELETAL: Absent: myalgia, arthralgia, joint swelling, back pain, neck pain SKIN: Absent: rash, itching, pallor HEMATOLOGIC/IMMUNOLOGIC: Absent: easy bleeding, easy bruising, lymphadenopathy, frequent infections ENDOCRINE: Absent: unexplained weight gain, unexplained weight loss, heat intolerance, cold intolerance NEUROLOGIC: Absent: headache, focal weakness or paresthesias, dizziness, unsteady gait, seizure, mental status changes, bladder or bowel incontinence PSYCHIATRIC: Absent: anxiety, depression, suicidal or homicidal ideation, hallucinations. PHYSICAL EXAMINATION Vital Signs - 24 hr 3 02/26/18 23:31 Temperature 98 F Pulse Rate 80 Respiratory 20 Rate Blood Pressure 150/75 O2 Sat by Pulse 96 Oximetry (%) GENERAL: Awake, alert, and fully oriented, in no acute distress. HEAD: Normal with no signs of trauma. EYES: Pupils equal, round and reactive to light, extraocular movements intact, sclera anicteric, conjunctiva clear. No lid lag. EARS, NOSE, THROAT: Ears normal, nares patent, oropharynx clear without exudates. Moist mucous membranes. NECK: Normal range of motion, supple without lymphadenopathy, JVD, or masses. LUNGS: Breath sounds equal, clear to auscultation bilaterally. No wheezes, and no crackles. No accessory muscle use. HEART: Regular rate and rhythm, normal S1 and S2 without murmur, rub or gallop. ABDOMEN: Soft, tender to deep palpation all 4 quadrants, not distended, normoactive bowel sounds, no guarding, no rebound, no masses. No hepatomegaly or splenomegaly. MUSCULOSKELETAL: Normal range of motion at all joints. No bony deformities or tenderness. No CVA tenderness. UPPER EXTREMITIES: 2+ pulses, warm, well-perfused. No cyanosis. No clubbing. No peripheral edema. LOWER EXTREMITIES: 2+ pulses, warm, well-perfused. No calf tenderness. No peripheral edema. NEUROLOGICAL: Cranial nerves II-XII intact. Normal speech. Normal gait. PSYCHIATRIC: Cooperative. Good eye contact. Appropriate mood and affect. SKIN: Warm, dry, normal turgor, no rashes or lesions noted, normal capillary refill. Laboratory Results - last 24 hr 3 02/27/18 02/27/18 02/27/18 02/27/18 02/27/18 00:20 00:40 00:40 02:05 02:25 WBC 13.7 H RBC 3.99 Hgb 12.7 Hct 38.1 MCV 95.5 MCH 31.7 MCHC 33.2 RDW 13.6 Plt Count 230 MPV 6.8 L Absolute Neuts (auto) 12.3 Neutrophils % 89.7 H D Lymphocytes % 6.7 L D Monocytes % 3.0 L Eosinophils % 0.2 D Basophils % 0.4 Nucleated RBC % 0 Sodium 132 L Potassium 4.1 Chloride 100 Carbon Dioxide 23 Anion Gap 9 BUN 15 Creatinine 0.6 Creat Clearance w eGFR > 60 Random Glucose 144 H Lactic Acid 1.0 Calcium 8.1 L Total Bilirubin 0.4 AST 18 ALT 18 Alkaline Phosphatase 33 L Creatine Kinase 35 Troponin I 0.02 Total Protein 6.7 Albumin 3.1 L Lipase 285 Urine Color Yellow Urine Appearance Clear Urine pH 6.0 Ur Specific [place] 1.024 Urine Protein Negative Urine Glucose (UA) Negative Urine Ketones 1+ H Urine Blood 2+ H Urine Nitrite Negative Urine Bilirubin Negative Urine Urobilinogen Negative Ur Leukocyte Esterase Negative Urine WBC (Auto) 2 Urine RBC (Auto) 2 Ur Epithelial Cells Rare Urine Mucus Rare Stool Occult Blood Negative ASSESSMENT/PLAN: 78yF with PMH R BrCA, HTN, osteoporosis presented to the ED with upper abdominal pain. abdominal pain - exam with minimal pain upon deep palpation - CT scan without clear reading, await final read in AM - will observe off antibiotics as afebrile, no diarrhea and exam unimpressive - lactic acid WNL, unlikely to be ischemic. HTN - cont home lisinopril BrCA - cont home tamoxifen DVT PPX - heparin deferred as anticipated LOS <48h FEN - NS @ 75cc/hr - bmp in am - clear liquid diet in am, advance if tolerated Dispo: Pt admitted for further observation. Visit type - Emergency Visit Emergency Visit: Yes ED Registration Date: 02/26/18 Care time: The patient presented to the Emergency Department on the above date and was hospitalized for further evaluation of their emergent condition. - New Patient This patient is new to me today: Yes Date on this admission: 02/27/18 - Critical Care Critical Care patient: No Hospitalist Screening - Colonoscopy Questionnaire Colonoscopy Questionnaire: Colonoscopy Questionnaire - Patient: 50 - 75 years old and never had a screening colonoscopy: No History of colon or rectal polyps, or CA: No History of IBD, Crohn's disease or UC: No History of abdominal radiation therapy as a child: No - Relative: 1 with colon or rectal CA, or polyps at age 60 or younger: Unknown Colon or rectal CA diagnosed at age 45 or younger: Unknown Multiple relatives with colon or rectal CA: Unknown - Outcome: Screening Result: Negative Screen
[2018-02-27] MEDS ORDERED: SODIUM CHLORIDE 1,000 ML IV SCH (03:30)
[2018-02-27 08:17] LABS: BASO % 0.6 % (0-2.0); EOS % 0.7 % (0-4.5); HEMATOCRIT 36.2 % (32.4-45.2); HEMOGLOBIN 12.1 GM/dL (10.7-15.3); MCH 32.4 pg (25.7-33.7); MCHC 33.5 g/dl (32.0-36.0); MEAN CELL VOLUME 96.7 fl (80-96); MEAN PLT VOLUME 6.8 fl (7.5-11.1); MONO % 5.3 % (3.8-10.2); NEUT % 73.4 % (42.8-82.8); PLATELET COUNT 230 K/MM3 (134-434); RBC 3.74 M/mm3 (3.60-5.2); RDW 13.7 % (11.6-15.6); WHITE BLOOD COUNT 9.5 K/mm3 (4.0-10.0)
[2018-02-27 08:56] LABS: ANION GAP 8 (8-16); BLOOD UREA NITROGEN 12 mg/dL (7-18); CALCIUM 8.2 mg/dL (8.5-10.1); CHLORIDE 102 mmol/L (98-107); CO2 24 mmol/L (21-32); GLUCOSE,RANDOM 97 mg/dL (74-106); POTASSIUM 4.5 mmol/L (3.5-5.1); SODIUM 134 mmol/L (136-145)
[2018-02-27 08:57] LABS: CREATININE 0.5 mg/dL (0.55-1.02); PHOSPHOROUS 3.3 mg/dL (2.5-4.9)
[2018-02-27] MEDS ORDERED: PT OWN MED DRAWER 7, Y5N ONE (09:53)
[2018-02-27] MEDS ORDERED: RANITIDINE HCL 150 MG TABLET (FP) PO SCH (10:00)
[2018-02-27] MEDS: LISINOPRIL 20 MG TABLET (FP) PO SCH (10:01)
--- NOTE | 2018-02-27 10:36 | EKG ---
Test Reason : Blood Pressure : / mmHG Vent. Rate : 066 BPM Atrial Rate : 066 BPM P-R Int : 152 ms QRS Dur : 080 ms QT Int : 422 ms P-R-T Axes : 062 038 127 degrees QTc Int : 442 ms SINUS RHYTHM WITH PREMATURE ATRIAL COMPLEXES T WAVE ABNORMALITY, CONSIDER ANTEROLATERAL ISCHEMIA ABNORMAL ECG WHEN COMPARED WITH ECG OF 22-SEP-2017 21:19, PREMATURE ATRIAL COMPLEXES ARE NOW PRESENT Confirmed by RYNE CUMMINGS, YAEL ([id number]) on 02/27/2018 10:36:05 AM Referred By: Confirmed By:YAEL MICHELE MD
[2018-02-27] MEDS: TAMOXIFEN CITRATE 10 MG TABLET PO SCH (12:02)
--- NOTE | 2018-02-27 12:46 | PN ---
Progress Note, Physician History of Present Illness: pt seen/ examined chart reviewed feels better denies pain now-- says still has discomfort - especially in upper abd- especially after taking meds tolerating liquid diet ct scan reviewed denies fever/ chills no diarrhea - Current Medication List Current Medications: Active Medications Sodium Chloride (Normal Saline -) 1,000 mls @ 75 mls/hr IV ASDIR [facility] Last Admin: 02/27/18 05:16 Dose: 75 mls/hr Lisinopril (Prinivil) 20 mg PO DAILY [facility] Last Admin: 02/27/18 10:01 Dose: 20 mg Pantoprazole Sodium (Protonix Iv) 40 mg IVPUSH DAILY [facility] Ranitidine HCl (Zantac -) 150 mg PO DAILY [facility] Last Admin: 02/27/18 10:01 Dose: 150 mg Tamoxifen Citrate (Tamoxifen Citrate) 20 mg PO DAILY [facility] Last Admin: 02/27/18 12:02 Dose: 20 mg - Objective Vital Signs: Vital Signs Temperature 98.0 F 02/27/18 09:42 Pulse Rate 75 02/27/18 09:42 Respiratory Rate 20 02/27/18 09:42 Blood Pressure 180/95 02/27/18 09:42 O2 Sat by Pulse Oximetry (%) 98 02/27/18 05:40 Constitutional: Yes: No Distress, Calm Eyes: Yes: Conjunctiva Clear Neck: Yes: Supple Cardiovascular: Yes: Regular Rate and Rhythm Respiratory: Yes: CTA Bilaterally Gastrointestinal: Yes: Normal Bowel Sounds, Soft, Tenderness, Epigastrium (mild . no r/r) Edema: No Psychiatric: Yes: Alert Labs: CBC, BMP 02/27/18 07:00 02/27/18 07:00 - ....Imaging Cat Scan: Report Reviewed Problem List - Problems (1) Abdominal pain Code(s): R10.9 - UNSPECIFIED ABDOMINAL PAIN (2) Enteritis Code(s): K52.9 - NONINFECTIVE GASTROENTERITIS AND COLITIS, UNSPECIFIED (3) Hypertension Code(s): I10 - ESSENTIAL (PRIMARY) HYPERTENSION (4) Acute gastritis Code(s): K29.00 - ACUTE GASTRITIS WITHOUT BLEEDING Qualifiers: Gastritis type: other gastritis Gastritis bleeding: without bleeding Qualified Code(s): K29.00 - Acute gastritis without bleeding Assessment/Plan discussed with pt / daughter-- who is at bedside Liquid diet today Likely gastritis start on protonix observe off abx f/u labs gi consult d/c fluids- bp high monitor will follow
[2018-02-27] MEDS: PANTOPRAZOLE SODIUM 40 MG VIAL IVPUSH SCH (14:15)
--- NOTE | 2018-02-27 14:49 | CON.GI ---
Consult Consult Specialty:: GI covering for Dr. Rushing Reason for Consultation:: possible enteritis - History of Present Illness Chief Complaint: upper abdominal pain with associated nausea x1 day History of Present Illness: 78 y/o female presented to [facility] ER with upper abdominal pain x1 day. Patient states that yesterday she started having right upper abdominal pain, which she describes as a sharp, shooting pain, which traveled across her abdomen. Along with this pain, she had one episode of non-bloody diarrhea and nausea; however, denies any vomiting. She noted to have eaten two goat meat tacos yesterday before the pain began. She has a history of gastritis in the past, the last episode being last year according to daughter who is present at bedside. Her last colonoscopy and endoscopy was three years ago which was normal according to daughter. She had a cholecystectomy in the past. - History Source History Provided By: Patient, Family Member (daughter present at bedside) - Past Medical History Cardio/Vascular: Yes: HTN Gastrointestinal: Yes: Gastritis ...LMP: 12/27/07 ...: No Heme/Onc: Yes: Cancer (history of right sided breast cancer ) Musculoskeletal: Yes: Other (osteoporosis ) - Past Surgical History Past Surgical History: Yes: Cholecystectomy, Mastectomy (right sided) Additional Surgical History: right lumpectomy - Alcohol/Substance Use Hx Alcohol Use: No - Smoking History Smoking history: Never smoked Have you smoked in the past 12 months: No Aproximately how many cigarettes per day: 0 - Social History Usual Living Arrangement: With Spouse Occupation: none Place of : Other ([place]) History of Recent Travel: No <Katina Johnson - Last Filed: 02/27/18 15:50> - History of Present Illness History of Present Illness: No recent Abx use. <Kennedy Browning - Last Filed: 02/27/18 16:09> Home Medications <Katina Johnson - Last Filed: 02/27/18 15:50> <Kennedy Browning - Last Filed: 02/27/18 16:09> - Allergies Allergies/Adverse Reactions: Allergies Allergy/AdvReac Type Severity Reaction Status Date / Time No Known Drug Allergies Allergy Verified 09/22/17 19:03 SHRIMP Allergy Uncoded 09/22/17 19:03 - Home Medications Home Medications: Ambulatory Orders Lisinopril [Prinivil] 20 mg PO DAILY 12/31/15 Tamoxifen Citrate 20 mg PO DAILY 12/31/15 Calcium Carbonate/Vitamin D3 [Oysco D Tablet] 1 each PO DAILY 03/05/16 Ranitidine [Zantac -] 150 mg PO DAILY #30 tablet 03/05/16 Meclizine HCl 25 mg PO TID PRN 02/27/18 Family Disease History - Family Disease History Family Disease History: Diabetes: Sister, Other: Father, Mother (vascular disease) Other Family History: no family history of GI malignancies <Katina Johnson - Last Filed: 02/27/18 15:50> Review of Systems - Review of Systems Gastrointestinal: reports: Abdominal Pain (mainly located in right upper abdomen ), Diarrhea (had one epsiode of diarrhea yesterday), Nausea. denies: Rectal Bleeding, Vomiting Musculoskeletal: reports: Muscle Pain <Katina Johnson - Last Filed: 02/27/18 15:50> Physical Exam-GI Vital Signs: Vital Signs Temperature 97.9 F 02/27/18 13:46 Pulse Rate 63 02/27/18 13:46 Respiratory Rate 18 02/27/18 13:46 Blood Pressure 143/71 02/27/18 13:46 O2 Sat by Pulse Oximetry (%) 98 02/27/18 05:40 Constitutional: Yes: Well Nourished Eyes: No: Sclera Icterus Cardiovascular: Yes: Regular Rate and Rhythm Respiratory: Yes: CTA Bilaterally Gastrointestinal Inspection: Yes: WNL, Scars (right trochar scar from cholecystectomy) ...Auscultate: Yes: Normoactive Bowel Sounds ...Palpate: Yes: Soft. No: Tenderness ...Percussion: No: Tympanitic ...Rectal Exam: Yes: Other (no external lesion, no masses, no stool in rectal vault, no gross blood.) Extremities: Yes: Cool Edema: No Neurological: Yes: Alert Labs: CBC, BMP 02/27/18 07:00 02/27/18 07:00 <Katina Johnson - Last Filed: 02/27/18 15:50> Vital Signs: Vital Signs Temperature 97.9 F 02/27/18 13:46 Pulse Rate 63 02/27/18 13:46 Respiratory Rate 18 02/27/18 13:46 Blood Pressure 143/71 02/27/18 13:46 O2 Sat by Pulse Oximetry (%) 98 02/27/18 12:17 Labs: CBC, BMP 02/27/18 07:00 02/27/18 07:00 <Kennedy Browning - Last Filed: 02/27/18 16:09> Imaging - Results Cat Scan: Report Reviewed, Image Reviewed (clips in gallbladder fossa and ? enlarged calcified fibroids in uterus.) <Katina Johnson - Last Filed: 02/27/18 15:50> Problem List - Problems (1) Enteritis Assessment/Plan: suspected self-limited infectious enteritis. clinically much improved from presentation and tolerating clear liquids. plan: -advance to full liquids, if tolerating, continue to advance to low sodium diet -if continued abdominal pain, repeat CT scan with oral contrast Code(s): K52.9 - NONINFECTIVE GASTROENTERITIS AND COLITIS, UNSPECIFIED (2) Hyponatremia Assessment/Plan: appears chronic; workup per PMD Code(s): E87.1 - HYPO-OSMOLALITY AND HYPONATREMIA (3) Enlarged uterus Assessment/Plan: uterus appeared enlarged and calcified on CT scan ? uterine fibroid alteration tailor follow up as outpatient and explain to daughter who is at bedside Code(s): N85.2 - HYPERTROPHY OF UTERUS <Katina Johnson - Last Filed: 02/27/18 15:50> - Problems (1) Enteritis Assessment/Plan: ATTENDING PHYSICIAN STATEMENT I saw and evaluated the patient. I reviewed the resident's note and discussed the case with the resident. I agree with the resident's findings and plan as documented. SUBJECTIVE: 78F acute onset of Nausea, abdominal painand diarrhea x 2 OBJECTIVE: Afebrile Anicteric Hrt: RRR, no murmurs Lungs: CTA b/l Abd: + faint healed upper abdominal troachar scar and periumbilical surgical scar. + normoactive BS. NT/ND, No HSM Ext: no LE edema ROMINA: no ext lesion, no masses, no stool in rectal vault (stool FOBT negative from specimen sent from ER) Labs: As above: improved leukocytosis Radiology ? of enteritis on CT scan abdomen ASSESSMENT 78F with suspected self resolved AGE PLAN: Plan as above If continued diarrhea, stool for O&P, Culture Eval of enlarged uterus in CT scan / hyponatremia per PMD Code(s): K52.9 - NONINFECTIVE GASTROENTERITIS AND COLITIS, UNSPECIFIED (2) Hyponatremia Code(s): E87.1 - HYPO-OSMOLALITY AND HYPONATREMIA (3) Enlarged uterus Code(s): N85.2 - HYPERTROPHY OF UTERUS <Kennedy Browning - Last Filed: 02/27/18 16:09>
[2018-02-28 07:09] LABS: BASO % 0.6 % (0-2.0); EOS % 2.5 % (0-4.5); HEMATOCRIT 37.2 % (32.4-45.2); HEMOGLOBIN 12.6 GM/dL (10.7-15.3); LYMPH % 26.7 % (8-40); MCH 32.6 pg (25.7-33.7); MCHC 33.9 g/dl (32.0-36.0); MEAN CELL VOLUME 96.1 fl (80-96); MEAN PLT VOLUME 7.2 fl (7.5-11.1); MONO % 6.6 % (3.8-10.2); NEUT % 63.6 % (42.8-82.8); PLATELET COUNT 245 K/MM3 (134-434); RBC 3.87 M/mm3 (3.60-5.2); RDW 13.5 % (11.6-15.6); WHITE BLOOD COUNT 5.1 K/mm3 (4.0-10.0)
[2018-02-28 07:59] LABS: CHLORIDE 105 mmol/L (98-107); POTASSIUM 4.2 mmol/L (3.5-5.1); SODIUM 139 mmol/L (136-145)
[2018-02-28 08:23] LABS: ALBUMIN 2.9 g/dl (3.4-5.0); ALK PHOS 30 U/L (45-117); ANION GAP 8 (8-16); BILIRUBIN,TOTAL 0.4 mg/dL (0.2-1.0); BLOOD UREA NITROGEN 8 mg/dL (7-18); CALCIUM 8.2 mg/dL (8.5-10.1); CO2 26 mmol/L (21-32); CREATININE 0.6 mg/dL (0.55-1.02); GLUCOSE,RANDOM 93 mg/dL (74-106); SGOT/AST 17 U/L (15-37); SGPT/ALT 19 U/L (12-78); TOT PROT 6.4 g/dl (6.4-8.2)
[2018-02-28] MEDS ORDERED: PT OWN MED DRAWER 7, Y5N ONE (09:34)
[2018-02-28] MEDS: PANTOPRAZOLE SODIUM 40 MG VIAL IVPUSH SCH (09:44)
[2018-02-28] MEDS: TAMOXIFEN CITRATE 10 MG TABLET PO SCH (09:45)
[2018-02-28] MEDS: LISINOPRIL 20 MG TABLET (FP) PO SCH (09:45)
--- NOTE | 2018-02-28 10:43 | PN ---
GI Progress Note Subjective: GI NOte: No further diarrhea. Tolerating liquids. Pain is almost gone. WBC decreasing. - Objective Vital Signs: Vital Signs Temperature 97.4 F L 02/28/18 06:00 Pulse Rate 54 L 02/28/18 06:00 Respiratory Rate 20 02/28/18 06:00 Blood Pressure 122/51 02/28/18 06:00 O2 Sat by Pulse Oximetry (%) 98 02/27/18 20:17 CBC,CMP WBC 5.1 K/mm3 (4.0-10.0) 02/28/18 06:30 RBC 3.87 M/mm3 (3.60-5.2) 02/28/18 06:30 Hgb 12.6 GM/dL (10.7-15.3) 02/28/18 06:30 Hct 37.2 % (32.4-45.2) 02/28/18 06:30 MCV 96.1 fl (80-96) H 02/28/18 06:30 MCH 32.6 pg (25.7-33.7) 02/28/18 06:30 MCHC 33.9 g/dl (32.0-36.0) 02/28/18 06:30 RDW 13.5 % (11.6-15.6) 02/28/18 06:30 Plt Count 245 K/MM3 (134-434) 02/28/18 06:30 MPV 7.2 fl (7.5-11.1) L 02/28/18 06:30 Absolute Neuts (auto) 3.2 # 02/28/18 06:30 Neutrophils % 63.6 % (42.8-82.8) 02/28/18 06:30 Lymphocytes % 26.7 % (8-40) D 02/28/18 06:30 Monocytes % 6.6 % (3.8-10.2) 02/28/18 06:30 Eosinophils % 2.5 % (0-4.5) D 02/28/18 06:30 Basophils % 0.6 % (0-2.0) 02/28/18 06:30 Nucleated RBC % 0 % (0-0) 02/28/18 06:30 Sodium 139 mmol/L (136-145) 02/28/18 06:30 Potassium 4.2 mmol/L (3.5-5.1) 02/28/18 06:30 Chloride 105 mmol/L (98-107) 02/28/18 06:30 Carbon Dioxide 26 mmol/L (21-32) 02/28/18 06:30 Anion Gap 8 (8-16) 02/28/18 06:30 BUN 8 mg/dL (7-18) 02/28/18 06:30 Creatinine 0.6 mg/dL (0.55-1.02) 02/28/18 06:30 Creat Clearance w eGFR > 60 (>60) 02/28/18 06:30 Random Glucose 93 mg/dL (74-106) 02/28/18 06:30 Lactic Acid 1.0 mmol/L (0.0-2.0) 02/27/18 02:05 Calcium 8.2 mg/dL (8.5-10.1) L 02/28/18 06:30 Phosphorus 3.3 mg/dL (2.5-4.9) 02/27/18 07:00 Magnesium 2.0 mg/dL (1.8-2.4) 02/27/18 07:00 Total Bilirubin 0.4 mg/dL (0.2-1.0) 02/28/18 06:30 AST 17 U/L (15-37) 02/28/18 06:30 ALT 19 U/L (12-78) 02/28/18 06:30 Alkaline Phosphatase 30 U/L (45-117) L 02/28/18 06:30 Creatine Kinase 35 IU/L (26-192) 02/27/18 00:40 Troponin I 0.02 ng/ml (0.00-0.05) 02/27/18 00:40 Total Protein 6.4 g/dl (6.4-8.2) 02/28/18 06:30 Albumin 2.9 g/dl (3.4-5.0) L 02/28/18 06:30 Lipase 285 U/L (73-393) 02/27/18 00:40 Constitutional: No Distress ...Auscultate: Yes: Normoactive Bowel Sounds ...Palpate: Yes: Soft, Other (nontender) Labs: CBC, BMP 02/28/18 06:30 02/28/18 06:30 Problem List - Problems (1) Enteritis Assessment/Plan: Resolving enteritis c/w mesenteric adenitis. No stool cultures obtained and now diarrhea has creased. Will try lactose free diet. If tolerated can consider discharge. Code(s): K52.9 - NONINFECTIVE GASTROENTERITIS AND COLITIS, UNSPECIFIED (2) Abdominal pain Code(s): R10.9 - UNSPECIFIED ABDOMINAL PAIN (3) Nausea Code(s): R11.0 - NAUSEA (4) Vomiting Code(s): R11.10 - VOMITING, UNSPECIFIED
--- NOTE | 2018-02-28 13:27 | DS ---
Physical Examination Vital Signs: Vital Signs Temperature 97.4 F L 02/28/18 06:00 Pulse Rate 54 L 02/28/18 06:00 Respiratory Rate 20 02/28/18 12:00 Blood Pressure 122/51 02/28/18 06:00 O2 Sat by Pulse Oximetry (%) 97 02/28/18 12:00 Constitutional: Yes: No Distress, Calm Cardiovascular: Yes: Regular Rate and Rhythm Respiratory: Yes: CTA Bilaterally Gastrointestinal: Yes: Normal Bowel Sounds, Soft, Abdomen, Obese. No: Tenderness Edema: No Labs: CBC, BMP 02/28/18 06:30 02/28/18 06:30 Discharge Summary Reason For Visit: ENTERITIS Current Active Problems Abdominal pain (Acute) Enlarged uterus (Acute) Enteritis (Acute) Hypertension (Acute) Hyponatremia (Acute) Hospital Course: Pt admitted for abdominal pain - CT abd- enteritis Seen by GI antibiotics discontinued Pt better clinically - on Lactose free diet Stable for dc home Condition: Improved - Instructions Referrals: Demond Rushing MD [Staff Physician] - 2 Weeks Mamie Burr MD [Primary Care Provider] - Disposition: HOME - Home Medications Comprehensive Discharge Medication List: Ambulatory Orders Lisinopril [Prinivil] 20 mg PO DAILY 12/31/15 Tamoxifen Citrate 20 mg PO DAILY 12/31/15 Calcium Carbonate/Vitamin D3 [Oysco D Tablet] 1 each PO DAILY 03/05/16 Ranitidine [Zantac -] 150 mg PO DAILY #30 tablet 03/05/16 Meclizine HCl 25 mg PO TID PRN 02/27/18
[2018-02-28 13:39] VITALS: BP 140/71; PULSE 63; TEMP 98.6
[2018-03-01] MEDS ORDERED: PANTOPRAZOLE 40 MG TABLET (FP) PO SCH (10:00)
== END 2018-02-28 15:24 | disposition home or self-care (01) ==
LOC: JER 23:27 → JERBED 02-27 03:03 → UNDOADMOB 02-27 03:08 → JERBED 02-27 03:08 → J5S 02-27 04:59
PROVIDERS: ADMIT Internal Medicine; ATTEND Internal Medicine
PROC: 3E0337Z Introduction of Electrolytic and Water Balance Substance into Peripheral Vein, Percutaneous Approach (ICD-10-PCS; principal; 2018-02-27)
PROC: 3E033GC Introduction of Other Therapeutic Substance into Peripheral Vein, Percutaneous Approach (ICD-10-PCS; 2018-02-27)
DX: K52.9 Noninfective gastroenteritis and colitis, unspecified (principal); I25.10 Atherosclerotic heart disease of native coronary artery without angina pectoris; I10 Essential (primary) hypertension; Z98.61 Coronary angioplasty status; E87.1 Hypo-osmolality and hyponatremia; N85.2 Hypertrophy of uterus; Z85.3 Personal history of malignant neoplasm of breast; Z90.11 Acquired absence of right breast and nipple; Z90.49 Acquired absence of other specified parts of digestive tract
CPT/HCPCS: 36415; 74176; 80048; 80053; 81003; 81015; 82272; 82550; 83605; 83690; 83735; 84100; 84484; 85025; 93005; 93010; 99285-25; G0378; J7030

== ENCOUNTER 2018-05-30 09:01 | Day surgery (SDC) | payer MEDICARE, OTHER ==
[2018-05-29 14:59] VITALS: BMI 25.2
[2018-05-30 10:05] VITALS: TEMP 98.3
[2018-05-30 11:50] VITALS: BP 129/86; PULSE 53
--- NOTE | 2018-05-31 19:15 | PATH ---
Surgical Pathology Report Patient Name: YOEL GUTIÉRREZ [facility]. Rec. #: [id number] /Age/Gender: 1940 (Age: 78) / F Account: [id number] Location: ASU-ENDOSCOPY Taken: 05/30/2018 Received: 05/30/2018 Reported: 05/31/2018 Physicians: López Plascencia M.D. Specimen(s) Received A: BX ANTRUM AND BODY B: BX TRANSVERSE COLON POLYP Clinical History Screening and abdominal pain Postoperative diagnosis: Normal EGD, colon polyp Final Diagnosis A. STOMACH, ANTRUM AND BODY, BIOPSY: GASTRIC ANTRAL AND BODY MUCOSA WITH MILD CHRONIC GASTRITIS. IMMUNOHISTOCHEMICAL STAIN FOR H. PYLORI IS NEGATIVE. B. TRANSVERSE COLON, POLYPS, BIOPSY: POLYPOID COLONIC MUCOSA WITH PROMINENT LYMPHOID AGGREGATES. Electronically Signed Melinda Nevarez M.D. Gross Description A. Received in formalin, labeled "antrum and body" are 2 camara, irregular portions of soft tissue measuring 0.2 and 0.3 cm. in greatest dimension. The specimens are submitted in toto in one cassette. B. Received in formalin, labeled "BX polyps from transverse colon" are 4 camara, irregular portions of soft tissue ranging in size from 0.1-0.3 cm. in greatest dimension. The specimens are submitted in toto in one cassette. MLSZ/05/30/2018 steve/05/30/2018
== END 2018-05-30 12:03 | disposition home or self-care (01) ==
LOC: JASU-ENDO 09:01
PROVIDERS: ATTEND Internal Medicine Gastroenterology
PROC: 0DB68ZX Excision of Stomach, Via Natural or Artificial Opening Endoscopic, Diagnostic (ICD-10-PCS; 2018-05-30)
PROC: 0DBL8ZX Excision of Transverse Colon, Via Natural or Artificial Opening Endoscopic, Diagnostic (ICD-10-PCS; principal; 2018-05-30 09:00)
DX: Z12.11 Encounter for screening for malignant neoplasm of colon (principal); D12.3 Benign neoplasm of transverse colon; R10.13 Epigastric pain; R63.4 Abnormal weight loss
CPT/HCPCS: 88305-TC; 88342-TC

== ENCOUNTER 2018-08-14 22:14 | Inpatient (IN) | payer MEDICARE, OTHER ==
--- NOTE | 2018-08-15 02:10 | PDOC ---
History of Present Illness - General Chief Complaint: Urinary Problem Stated Complaint: ABDOMINAL PAIN Time Seen by Provider: 08/15/18 01:28 History Source: Patient Exam Limitations: No Limitations - History of Present Illness Initial Comments: 08/15/18 05:22 78 yo F with a hx of right breast cancer (s/p masectomy), HTN, and osteoporosis presents to the emergency department with intermittent lower abdominal pain that radiates to the left and right lower back for the past 4 days. Per the patient, she states the pain only occurs when she urinates. The pain is described as a burning sensation, 9/10, and has partial relief with using advil. She endorses fevers, nausea (but denies vomiting), and hx of UTIs. She denies the following: visual changes, ears/nose/throat pain, chest pain, SOB, hematuria, diarrhea, hematochezia, melena, and leg pain. Pmhx: Refer to above Shx: Right masectomy, spinal surgery Meds: lisinopril, oysco, tamoxifen Allergies: NKDA Social: Denies tobacco, alcohol, and substance abuse. Past History - Past Medical History Allergies/Adverse Reactions: Allergies Allergy/AdvReac Type Severity Reaction Status Date / Time No Known Drug Allergies Allergy Verified 08/15/18 03:15 SHRIMP Allergy Severe Rash Uncoded 08/14/18 22:24 Home Medications: Ambulatory Orders Lisinopril [Prinivil] 20 mg PO DAILY 12/31/15 Tamoxifen Citrate 20 mg PO DAILY 12/31/15 Calcium Carbonate/Vitamin D3 [Oysco D Tablet] 1 each PO BID 03/05/16 Alendronate Sodium [Binosto] 70 mg PO WEEKLY 05/29/18 Anemia: No Asthma: No Cancer: Yes (BREAST rt) Cardiac Disorders: Yes CVA: No COPD: No CHF: No DVT: No Dementia: No Diabetes: No GI Disorders: No Disorders: No HTN: Yes Hypercholesterolemia: No Liver Disease: No Seizures: No Thyroid Disease: No - Surgical History Abdominal Surgery: Yes Appendectomy: No Cardiac Surgery: Yes (CATHETERIZATION) Cholecystectomy: Yes Lung Surgery: No Neurologic Surgery: Yes (SPINAL SX) Orthopedic Surgery: No - Immunization History Td Vaccination: Yes Immunization Up to Date: Yes - Suicide/Smoking/Psychosocial Hx Smoking Status: No Smoking History: Never smoked Years of Tobacco Use: 0 Have you smoked in the past 12 months: No Number of Cigarettes Smoked Daily: 0 Cigars Per Day: 0 Hx Alcohol Use: No Drug/Substance Use Hx: No Substance Use Type: None Hx Substance Use Treatment: No *Physical Exam - Vital Signs Last Vital Signs Temp Pulse Resp BP Pulse Ox 99.1 F 80 18 175/64 H 96 08/14/18 22:21 18 22:21 08/14/18 22:21 08/14/18 22:21 08/14/18 22:21 - Physical Exam General Appearance: Yes: Nourished, Appropriately Dressed. No: Apparent Distress, Intoxicated HEENT: positive: EOMI, DEBBIE, Normal Voice, Symmetrical, Pharynx Normal, Hearing Grossly Normal. negative: Pale Conjunctivae, Scleral Icterus (R), Scleral Icterus (L), Muffled/Hoarse voice, Pharyngeal Erythema, Tonsillar Exudate, Tonsillar Erythema, Excessive drooling Neck: positive: Trachea midline. negative: Tender, Lymphadenopathy (R), Lymphadenopathy (L), Tender lateral, Tender midline Respiratory/Chest: positive: Lungs Clear, Normal Breath Sounds. negative: Chest Tender, Respiratory Distress, Accessory Muscle Use, Crackles, Rales, Rhonchi, Stridor Cardiovascular: positive: Regular Rhythm, Regular Rate, S1, S2. negative: Systolic Murmur Gastrointestinal/Abdominal: positive: Normal Bowel Sounds, Flat, Soft. negative : Tender, Pulsatile Mass Lymphatic: negative: Adenopathy Musculoskeletal: positive: Normal Inspection, CVA Tenderness (R). negative: CVA Tenderness (L), Vertebral Tenderness Extremity: positive: Normal Capillary Refill, Normal Inspection, Normal Range of Motion. negative: Tender Integumentary: positive: Normal Color, Dry, Warm. negative: Rash, Swelling Neurologic: positive: vegetable handler II-XII NML intact, Fully Oriented, Alert, Normal Mood/ Affect, Normal Response, Motor Strength 5/5. negative: EOM Palsy, Sensory Deficit Moderate Sedation - Procedure Monitoring Vital Signs: Procedure Monitoring Vital Signs Temperature 99.1 F 08/14/18 22:21 Pulse Rate 80 08/14/18 22:21 Respiratory Rate 18 08/14/18 22:21 Blood Pressure 175/64 H 08/14/18 22:21 O2 Sat by Pulse Oximetry (%) 96 08/14/18 22:21 ED Treatment Course - LABORATORY CBC & Chemistry Diagram: 12/19/18 06:30 08/16/18 06:30 Medical Decision Making - Medical Decision Making 78 yo F with a hx of right breast cancer (s/p masectomy), HTN, and osteoporosis presents to the emergency department with intermittent lower abdominal pain that radiates to the left and right lower back for the past 4 days. Initial vitals: Initial Vital Signs Temp Pulse Resp BP Pulse Ox 99.1 F 80 18 175/64 H 96 08/14/18 22:21 08/14/18 22:21 08/14/18 22:21 08/14/18 22:21 08/14/18 22:21 ddx: UTI vs pyelo vs infected stone vs nephrolithiasis vs appendicitis vs colitis Laboratory Tests 08/15/18 08/15/18 08/15/18 03:15 04:00 04:00 WBC 10.8 H RBC 4.04 Hgb 13.4 Hct 38.3 MCV 94.9 MCH 33.3 MCHC 35.1 RDW 13.9 Plt Count 245 MPV 7.4 L Absolute Neuts (auto) 8.7 H Neutrophils % 80.7 D Lymphocytes % 13.3 D Monocytes % 5.2 Eosinophils % 0.3 D Basophils % 0.5 Nucleated RBC % 0 Sodium 136 Potassium 4.3 Chloride 105 Carbon Dioxide 23 Anion Gap 8 BUN 15 Creatinine 0.7 Creat Clearance w eGFR > 60 Random Glucose 110 H Lactic Acid Calcium 8.5 Total Bilirubin 0.5 AST 30 ALT 27 Alkaline Phosphatase 46 Total Protein 7.5 Albumin 3.5 Urine Color Ltyellow Urine Appearance Slcloudy Urine pH 6.0 Ur Specific [place] 1.006 L Urine Protein 1+ H Urine Glucose (UA) Negative Urine Ketones Trace H Urine Blood 2+ H Urine Nitrite Positive Urine Bilirubin Negative Urine Urobilinogen Negative Ur Leukocyte Esterase 3+ H Urine WBC (Auto) 105 Urine RBC (Auto) 6 Urine Bacteria Many Urine Yeast Few 08/15/18 04:00 WBC RBC Hgb Hct MCV MCH MCHC RDW Plt Count MPV Absolute Neuts (auto) Neutrophils % Lymphocytes % Monocytes % Eosinophils % Basophils % Nucleated RBC % Sodium Potassium Chloride Carbon Dioxide Anion Gap BUN Creatinine Creat Clearance w eGFR Random Glucose Lactic Acid 1.3 Calcium Total Bilirubin AST ALT Alkaline Phosphatase Total Protein Albumin Urine Color Urine Appearance Urine pH Ur Specific [place] Urine Protein Urine Glucose (UA) Urine Ketones Urine Blood Urine Nitrite Urine Bilirubin Urine Urobilinogen Ur Leukocyte Esterase Urine WBC (Auto) Urine RBC (Auto) Urine Bacteria Urine Yeast urine shows UTI in setting of symptomatic complaints. she has a slight elevation in WBC. CT abdomen pelvis with and without ordered. it shows area of diminished enhancement of the superior pole of the right kidney suggests pyelonephritis and filling defect in the mid right ureter may reflect infectious debris or possibly a ureteral mass. 08/15/18 06:[address] Bay, urology. He states he wants her admitted, NPO, and to start 1 gram of ceftriaxone. Will see her today in AM. 08/15/18 07:[address] Simms *DC/Admit/Observation/Transfer Diagnosis at time of Disposition: Pyelonephritis, Urinary (tract) obstruction - Referrals - Patient Instructions - Post Discharge Activity
--- NOTE | 2018-08-15 02:53 | PDOC ---
Attending Attestation - Resident Resident Name: Jimmie Butler - ED Attending Attestation I have performed the following: I have examined & evaluated the patient, The case was reviewed & discussed with the resident, I agree w/resident's findings & plan, Exceptions are as noted - HPI HPI: 08/15/18 02:52 78 F with h/o breast CA, HTN presenting to ED with abdominal pain and dysuria. Pt states symptoms started about 4 days ago. Denies F/C. States that her lower abdomen hurts when she urinates. The pain is in both lower quadrants and radiates to bilateral flanks. Denies N/V. Denies diarrhea/constipation. Denies CP/SOB. - Physicial Exam PE: 08/15/18 02:52 "GENERAL: Awake, alert, and fully oriented, in no acute distress. HEAD: No signs of trauma EYES: PERRLA, EOMI, sclera anicteric, conjunctiva clear ENT: Auricles normal inspection, hearing grossly normal, nares patent, oropharynx clear without exudates. Moist mucosa NECK: Nontender, no stepoffs, Normal ROM, supple, no lymphadenopathy, JVD, or masses LUNGS: Breath sounds equal, clear to auscultation bilaterally. No wheezes, and no crackles HEART: Regular rate and rhythm, normal S1 and S2, no murmurs, rubs or gallops ABDOMEN: + BLQ tenderness, + R CVAT, normoactive bowel sounds. No guarding, no rebound. No masses EXTREMITIES: Normal range of motion, no edema. No clubbing or cyanosis. No cords, erythema, or tenderness NEUROLOGICAL: Cranial nerves II through XII intact. 5/5 strength and sensation in all extremities, Normal speech, normal gait, normal cerebellar function SKIN: Warm, Dry, normal turgor, no rashes or lesions noted. - Medical Decision Making 08/15/18 02:53 78 F with BLQ pain and dysuria. Likley UTI/Pyelo. Given abdominal tenderness, will obtain CT to r/o acute abdominal pathology. - Labs, UA - CTAP 08/15/18 06:17 Labs wnl UA consistent with UTI CT obtained showing 4mm ureteral filling defect with hydronephrosis and pyelo Dr. Bustamante consulted for possible infected stone Pt started on ceftriaxone Will admit
[2018-08-15 03:33] LABS: URINE APPEARANCE SLCLOUDY; URINE BILIRUBIN NEGATIVE (<2.0 mg/dL); URINE COLOR LTYELLOW; URINE GLUCOSE (UA) NEGATIVE (NEGATIVE); URINE KETONE TRACE (NEGATIVE); URINE LEUK ESTERASE 3+ (NEGATIVE); URINE NITRITE POSITIVE (NEGATIVE); URINE PROTEIN 1+ (NEGATIVE); URINE UROBILINOGEN NEGATIVE mg/dL (0.2-1.0)
[2018-08-15 03:44] LABS: URINE BACTERIA MANY /hpf (NONE SEEN); YEAST FEW
[2018-08-15 04:07] LABS: BASO % 0.5 % (0-2.0); EOS % 0.3 % (0-4.5); HEMATOCRIT 38.3 % (32.4-45.2); HEMOGLOBIN 13.4 GM/dL (10.7-15.3); LYMPH % 13.3 % (8-40); MCH 33.3 pg (25.7-33.7); MCHC 35.1 g/dl (32.0-36.0); MEAN CELL VOLUME 94.9 fl (80-96); MEAN PLT VOLUME 7.4 fl (7.5-11.1); MONO % 5.2 % (3.8-10.2); NEUT % 80.7 % (42.8-82.8); PLATELET COUNT 245 K/MM3 (134-434); RBC 4.04 M/mm3 (3.60-5.2); RDW 13.9 % (11.6-15.6); WHITE BLOOD COUNT 10.8 K/mm3 (4.0-10.0)
[2018-08-15 04:36] LABS: ALBUMIN 3.5 g/dl (3.4-5.0); ALK PHOS 46 U/L (45-117); ANION GAP 8 MMOL/L (8-16); BILIRUBIN,TOTAL 0.5 mg/dL (0.2-1); BLOOD UREA NITROGEN 15 mg/dL (7-18); CALCIUM 8.5 mg/dL (8.5-10.1); CHLORIDE 105 mmol/L (98-107); CO2 23 mmol/L (21-32); CREATININE 0.7 mg/dL (0.55-1.3); GLUCOSE,RANDOM 110 mg/dL (74-106); POTASSIUM 4.3 mmol/L (3.5-5.1); SGOT/AST 30 U/L (15-37); SGPT/ALT 27 U/L (13-61); SODIUM 136 mmol/L (136-145); TOT PROT 7.5 g/dl (6.4-8.2)
[2018-08-15] MEDS ORDERED: CEFTRIAXONE 1 GM/50 ML BAG ONE (06:43)
[2018-08-15] MEDS ORDERED: ACETAMINOPHEN 1000 MG/100 ML VIAL (NON FORMULARY) IVPB ONE (06:55)
[2018-08-15] MEDS ORDERED: ACETAMINOPHEN INJECTION 100 ML IVPB ONE (07:09)
[2018-08-15 09:02] VITALS: BMI 25.5
[2018-08-15] MEDS ORDERED: ONDANSETRON 4 MG/2 ML VIAL IVPUSH PRN (09:47)
[2018-08-15] MEDS ORDERED: MORPHINE SULFATE 2 MG/ML VIAL IVPUSH PRN (09:47)
--- NOTE | 2018-08-15 10:27 | HP ---
CHIEF COMPLAINT: PCP: Dr. Weaver HISTORY OF PRESENT ILLNESS: 78 year old female with history of Hypertension, Breast Ca s/p Mastectomy (on Tamoxifen), Osteoporosis, presented to the ED with 4 day history of lower abdominal pain and dysuria. She denies any hematuria, frequency, fever, or chills. She admits to mild nausea, no vomiting. She reports longstanding lower back pain but no LE weakness, numbness, tingling or bladder/bowel dysfunction. PAST MEDICAL/SURGICAL HISTORY: HTN Breast Cancer s/p Mastectomy - on Tamoxifen Osteoporosis s/p spinal surgery for OA s/p Cholecystectomy Social History: Lives with her , who is apparently currently also hospitalized at [facility] Denies smoking, alcohol, or drug use. Mobilizes independently. Family History: Reviewed and non-contributory Allergies No Known Drug Allergies Allergy (Verified 08/15/18 03:15) SHRIMP Allergy (Severe, Uncoded 08/14/18 22:24) Rash HOME MEDICATIONS: Home Medications Medication Instructions Recorded Lisinopril [Prinivil] 20 mg PO DAILY 12/31/15 Tamoxifen Citrate 20 mg PO DAILY 12/31/15 Calcium Carbonate/Vitamin D3 1 each PO BID 03/05/16 [Oysco D Tablet] Alendronate Sodium [Binosto] 70 mg PO WEEKLY 05/29/18 REVIEW OF SYSTEMS CONSTITUTIONAL: Absent: fever, chills, diaphoresis, malaise, loss of appetite, weight change HEENT: Absent: rhinorrhea, nasal congestion, visual changes CARDIOVASCULAR: Absent: chest pain, syncope, palpitations, irregular heart rate, lightheadedness , peripheral edema RESPIRATORY: Absent: cough, shortness of breath, dyspnea with exertion, orthopnea, wheezing, stridor, hemoptysis GASTROINTESTINAL: Absent: Complains of suprapubic abdominal pain. No abdominal distension, vomiting, diarrhea, constipation, melena, hematochezia GENITOURINARY: Complains of dysuria. No frequency, or hematuria. Lower back pain - not localized to either flank. MUSCULOSKELETAL: Absent: myalgia, arthralgia, joint swelling. She does complain of lower back pain, not localized or lateralized. SKIN: Absent: rash, itching, pallor HEMATOLOGIC/IMMUNOLOGIC: Absent: easy bleeding, easy bruising, lymphadenopathy ENDOCRINE: Absent: No polyuria/polydipsia NEUROLOGIC: Absent: headache, focal weakness or paresthesias, dizziness, unsteady gait, seizure, mental status changes, bladder or bowel incontinence PSYCHIATRIC: Absent: No depression, suicidal or homicidal ideation, hallucinations. PHYSICAL EXAMINATION Vital Signs - 24 hr 08/14/18 08/15/18 08/15/18 22:21 03:13 06:55 Temperature 99.1 F Pulse Rate 80 Pulse Rate [ 76 Right] Respiratory 18 19 Rate Blood Pressure 175/64 H Blood Pressure 183/64 H [Left Arm] O2 Sat by Pulse 96 96 97 Oximetry (%) 08/15/18 08/15/18 07:51 08:37 Temperature 98.5 F 98.1 F Pulse Rate 70 Pulse Rate [ 69 Right] Respiratory 14 20 Rate Blood Pressure 145/74 Blood Pressure 141/61 [Left Arm] O2 Sat by Pulse 99 Oximetry (%) GENERAL: Awake, alert, and fully oriented, in no acute distress. HEAD: Atraumatic, Normocephalic. EYES: Pupils equal, round and reactive to light, extraocular movements intact, sclera anicteric, conjunctiva clear. EARS, NOSE, THROAT: Ears normal, nares patent, oropharynx clear without exudates. Moist mucous membranes. NECK: No lymphadenopathy, JVD, or masses. LUNGS: Breath sounds equal, clear to auscultation bilaterally. No wheezes, and no crackles. No accessory muscle use. HEART: Regular rate and rhythm, normal S1 and S2 ABDOMEN: Soft, mild supra-pubic tenderness, not distended, normoactive bowel sounds. No guarding, no rebound, no masses. No hepatomegaly or splenomegaly. MUSCULOSKELETAL: Normal range of motion at all joints. No bony deformities or tenderness. No CVA tenderness. UPPER EXTREMITIES: No cyanosis. No clubbing. No peripheral edema. LOWER EXTREMITIES: Warm, well-perfused. No calf tenderness. No peripheral edema. NEUROLOGICAL: Cranial nerves II-XII intact. Normal speech. Tone/Power normal all extremities. PSYCHIATRIC: Cooperative. Good eye contact. Appropriate mood and affect. Laboratory Results - last 24 hr 08/15/18 08/15/18 08/15/18 03:15 04:00 04:00 WBC 10.8 H RBC 4.04 Hgb 13.4 Hct 38.3 MCV 94.9 MCH 33.3 MCHC 35.1 RDW 13.9 Plt Count 245 MPV 7.4 L Absolute Neuts (auto) 8.7 H Neutrophils % 80.7 D Lymphocytes % 13.3 D Monocytes % 5.2 Eosinophils % 0.3 D Basophils % 0.5 Nucleated RBC % 0 Sodium 136 Potassium 4.3 Chloride 105 Carbon Dioxide 23 Anion Gap 8 BUN 15 Creatinine 0.7 Creat Clearance w eGFR > 60 Random Glucose 110 H Lactic Acid Calcium 8.5 Total Bilirubin 0.5 AST 30 ALT 27 Alkaline Phosphatase 46 Total Protein 7.5 Albumin 3.5 Urine Color Ltyellow Urine Appearance Slcloudy Urine pH 6.0 Ur Specific [place] 1.006 L Urine Protein 1+ H Urine Glucose (UA) Negative Urine Ketones Trace H Urine Blood 2+ H Urine Nitrite Positive Urine Bilirubin Negative Urine Urobilinogen Negative Ur Leukocyte Esterase 3+ H Urine WBC (Auto) 105 Urine RBC (Auto) 6 Urine Bacteria Many Urine Yeast Few 08/15/18 04:00 WBC RBC Hgb Hct MCV MCH MCHC RDW Plt Count MPV Absolute Neuts (auto) Neutrophils % Lymphocytes % Monocytes % Eosinophils % Basophils % Nucleated RBC % Sodium Potassium Chloride Carbon Dioxide Anion Gap BUN Creatinine Creat Clearance w eGFR Random Glucose Lactic Acid 1.3 Calcium Total Bilirubin AST ALT Alkaline Phosphatase Total Protein Albumin Urine Color Urine Appearance Urine pH Ur Specific [place] Urine Protein Urine Glucose (UA) Urine Ketones Urine Blood Urine Nitrite Urine Bilirubin Urine Urobilinogen Ur Leukocyte Esterase Urine WBC (Auto) Urine RBC (Auto) Urine Bacteria Urine Yeast ASSESSMENT/PLAN: 78 year old female with history of Hypertension, Breast Ca s/p Mastectomy (on Tamoxifen), Osteoporosis, presented to the ED with 4 day history of lower abdominal pain and dysuria, found to have R pyelonephritis with ureteral obstruction, likely nephrolithiasis, and resulting hydroureter/hydronephrosis. 1. R Pyelonephritis secondary ureteric stone and resulting hydroureter/ hydronephrosis CT A/P - verbal report (official read not yet available) - findings suggestive of R pyelonephritis with R ureteral filling defect due to 4mm stone with presence of hydronephrosis and hydroureter. Awaiting official report. Afebrile, Hemodynamically Stable. WBC 10.8 UA suggestive of UTI (LE 3+, Blood 2+). UCx pending. Will treat with IV Ceftriaxone, IV fluids. Will keep NPO pending Urology evaluation for Hydroureter and Hydronephrosis sec to Nephrolithiasis. 2. HTN - Continue Lisinopril 3. History of Breast Ca s/p Mastectomy - Continue Tamoxifen 4. Osteoporosis - normally on Vit D/Ca supplementation and Alendronate weekly at home. DVT Px - Heparin SQ Visit type - Emergency Visit Emergency Visit: Yes ED Registration Date: 08/15/18 Care time: The patient presented to the Emergency Department on the above date and was hospitalized for further evaluation of their emergent condition. - New Patient This patient is new to me today: Yes Date on this admission: 08/15/18 - Critical Care Critical Care patient: No
--- NOTE | 2018-08-15 10:33 | PN ---
Progress Note, Physician Chief Complaint: has pain in right side of back and lower abdomen No nausea - Current Medication List Current Medications: Active Medications Heparin Sodium (Porcine) (Heparin -) 5,000 unit SQ BID NANCY Sodium Chloride (Normal Saline -) 1,000 mls @ 100 mls/hr IV ASDIR NANCY Ceftriaxone Sodium 1 gm/ (Dextrose) 50 mls @ 100 mls/hr IVPB DAILY NANCY; Protocol Lisinopril (Prinivil) 20 mg PO DAILY NANCY Morphine Sulfate (Morphine Sulfate) 1 mg IVPUSH Q4H PRN PRN Reason: PAIN LEVEL 4 - 6 Ondansetron HCl (Zofran Injection) 4 mg IVPUSH Q6H PRN PRN Reason: NAUSEA Tamoxifen Citrate (Tamoxifen Citrate) 20 mg PO DAILY NANCY - Objective Vital Signs: Vital Signs Temperature 98.1 F 08/15/18 08:37 Pulse Rate 70 08/15/18 08:37 Respiratory Rate 20 08/15/18 08:37 Blood Pressure 145/74 08/15/18 08:37 O2 Sat by Pulse Oximetry (%) 99 08/15/18 07:51 Constitutional: Yes: No Distress Cardiovascular: Yes: Regular Rate and Rhythm Respiratory: Yes: CTA Bilaterally Gastrointestinal: Yes: Normal Bowel Sounds, Soft, Tenderness (suprapubic +) Genitourinary: Yes: CVA Tenderness - Right Edema: No Labs: CBC, BMP 08/15/18 04:00 08/15/18 04:00 Problem List - Problems (1) UTI (urinary tract infection) Code(s): N39.0 - URINARY TRACT INFECTION, SITE NOT SPECIFIED (2) Pyelonephritis Code(s): N12 - TUBULO-INTERSTITIAL NEPHRITIS, NOT SPCF ACUTE OR CHRONIC (3) Ureteral stone with hydronephrosis Code(s): N13.2 - HYDRONEPHROSIS WITH RENAL AND URETERAL CALCULOUS OBSTRUCTION Assessment/Plan PLAN IV antibiotics IV fluids eval called in ER pain control as per ER notes- pt to be kept NPO - Dr Bustamante will be seeing her today
--- NOTE | 2018-08-15 10:59 | CON.GU ---
Consult Consult Specialty:: Urology Reason for Consultation:: Pylonephritis - History of Present Illness Chief Complaint: 79 yo female w symptoms c/w uti. nonspecific pain dysuria - History Source History Provided By: Patient, Medical Record - Past Medical History Cardio/Vascular: Yes: HTN Gastrointestinal: Yes: Gastritis ...LMP: 12/27/07 Musculoskeletal: Yes: Other (osteoporosis ) - Past Surgical History Past Surgical History: Yes: Cholecystectomy, Mastectomy (right sided) - Alcohol/Substance Use Hx Alcohol Use: No - Smoking History Smoking history: Never smoked Have you smoked in the past 12 months: No Aproximately how many cigarettes per day: 0 - Social History Usual Living Arrangement: With Spouse Occupation: none History of Recent Travel: No Home Medications - Allergies Allergies/Adverse Reactions: Allergies Allergy/AdvReac Type Severity Reaction Status Date / Time No Known Drug Allergies Allergy Verified 08/15/18 03:15 SHRIMP Allergy Severe Rash Uncoded 08/14/18 22:24 - Home Medications Home Medications: Ambulatory Orders Lisinopril [Prinivil] 20 mg PO DAILY 12/31/15 Tamoxifen Citrate 20 mg PO DAILY 12/31/15 Calcium Carbonate/Vitamin D3 [Oysco D Tablet] 1 each PO BID 03/05/16 Alendronate Sodium [Binosto] 70 mg PO WEEKLY 05/29/18 Family Disease History - Family Disease History Family Disease History: Diabetes: Sister, Other: Father, Mother (vascular disease) Physical Exam- Vital Signs: Vital Signs Temperature 98.1 F 08/15/18 08:37 Pulse Rate 70 08/15/18 08:37 Respiratory Rate 20 08/15/18 08:37 Blood Pressure 145/74 08/15/18 08:37 O2 Sat by Pulse Oximetry (%) 99 08/15/18 07:51 Labs: CBC, BMP 08/15/18 04:00 08/15/18 04:00 Imaging - Results Cat Scan: Image Reviewed Problem List - Problems (1) Pyelonephritis Assessment/Plan: 79 yo female w right pylonephritis. CT w possible slight hydro vs extrarenal pelvis no stone visualized poss filling defect in ureter no discreet abscess on CT Contrast images c/w pylonephritis. Clinically afebrile vss wbc 10 Follow for SIRS development. currently does not require stent placement Code(s): N12 - TUBULO-INTERSTITIAL NEPHRITIS, NOT SPCF ACUTE OR CHRONIC
[2018-08-15] MEDS: LISINOPRIL 20 MG TABLET (FP) PO SCH (14:20)
[2018-08-15] MEDS: TAMOXIFEN CITRATE 10 MG TABLET PO SCH (14:20)
[2018-08-15] MEDS: SODIUM CHLORIDE 1,000 ML IV SCH ×2 (14:20→21:47)
[2018-08-15] MEDS: HEPARIN NA (PORCINE) 5,000 UNITS/ML 1ML VIAL SQ SCH (21:46)
[2018-08-15] MEDS: BISACODYL 5 MG TABLET.DR (FP) PO PRN (21:46)
[2018-08-16] MEDS ORDERED: ACETAMINOPHEN 500 MG TABLET (FP) PO PRN (02:36)
[2018-08-16] MEDS: SODIUM CHLORIDE 1,000 ML IV SCH (06:29)
[2018-08-16 06:50] LABS: BASO % 0.4 % (0-2.0); EOS % 0.8 % (0-4.5); HEMATOCRIT 34.1 % (32.4-45.2); HEMOGLOBIN 11.2 GM/dL (10.7-15.3); LYMPH % 24.7 % (8-40); MCH 31.7 pg (25.7-33.7); MCHC 32.8 g/dl (32.0-36.0); MEAN CELL VOLUME 96.7 fl (80-96); MEAN PLT VOLUME 7.3 fl (7.5-11.1); MONO % 6.4 % (3.8-10.2); NEUT % 67.7 % (42.8-82.8); PLATELET COUNT 199 K/MM3 (134-434); RBC 3.52 M/mm3 (3.60-5.2); RDW 13.5 % (11.6-15.6); WHITE BLOOD COUNT 5.6 K/mm3 (4.0-10.0)
[2018-08-16 07:36] LABS: ANION GAP 8 MMOL/L (8-16); BLOOD UREA NITROGEN 14 mg/dL (7-18); CALCIUM 7.1 mg/dL (8.5-10.1); CHLORIDE 112 mmol/L (98-107); CO2 21 mmol/L (21-32); CREATININE 0.6 mg/dL (0.55-1.3); GLUCOSE,RANDOM 84 mg/dL (74-106); POTASSIUM 3.9 mmol/L (3.5-5.1); SODIUM 141 mmol/L (136-145)
--- NOTE | 2018-08-16 10:36 | PN ---
Progress Note (short form) - Note Progress Note: had low grade fever this AM No abd pain No dysuria Vital Signs - 24 hr 08/15/18 08/15/18 08/16/18 21:00 21:54 02:00 Temperature 98.1 F 100.3 F H Pulse Rate 83 63 Respiratory 17 17 18 Rate Blood Pressure 136/65 133/57 L O2 Sat by Pulse 96 Oximetry (%) 08/16/18 08/16/18 06:00 09:00 Temperature 98.3 F Pulse Rate 65 72 Respiratory 18 18 Rate Blood Pressure 117/59 L 139/79 O2 Sat by Pulse Oximetry (%) Current Medications Generic Name Dose Route Start Last Admin Trade Name Freq PRN Reason Stop Dose Admin Acetaminophen 500 mg 08/16/18 02:36 08/16/18 02:49 Tylenol - PO 500 mg Q6H PRN Administration FEVER Bisacodyl 5 mg 08/15/18 20:01 08/15/18 21:46 Dulcolax - PO 5 mg DAILY PRN Administration CONSTIPATION Heparin Sodium (Porcine) 5,000 unit 08/15/18 22:00 08/16/18 11:01 Heparin - SQ 5,000 unit BID NANCY Administration Ceftriaxone Sodium 1 gm/ 50 mls @ 100 mls/hr 08/16/18 10:00 08/16/18 11:01 Dextrose IVPB 100 mls/hr DAILY NANCY Administration Protocol Lisinopril 20 mg 08/15/18 10:00 08/16/18 11:01 Prinivil PO 20 mg DAILY NANCY Administration Morphine Sulfate 1 mg 08/15/18 09:47 Morphine Sulfate IVPUSH Q4H PRN PAIN LEVEL 4 - 6 Ondansetron HCl 4 mg 08/15/18 09:47 Zofran Injection IVPUSH Q6H PRN NAUSEA Tamoxifen Citrate 20 mg 08/15/18 11:30 08/16/18 11:02 Tamoxifen Citrate PO 20 mg DAILY NANCY Administration Laboratory Results - last 24 hr 08/16/18 08/16/18 06:30 06:30 WBC 5.6 RBC 3.52 L Hgb 11.2 Hct 34.1 MCV 96.7 H MCH 31.7 MCHC 32.8 RDW 13.5 Plt Count 199 MPV 7.3 L Absolute Neuts (auto) 3.8 Neutrophils % 67.7 Lymphocytes % 24.7 D Monocytes % 6.4 Eosinophils % 0.8 D Basophils % 0.4 Nucleated RBC % 0 Sodium 141 Potassium 3.9 Chloride 112 H Carbon Dioxide 21 Anion Gap 8 BUN 14 Creatinine 0.6 Creat Clearance w eGFR > 60 Random Glucose 84 Calcium 7.1 L Magnesium 2.0 S1 S2 RRR Lungs clear Abd- soft, NT No edema PLAN Prelim urine culture results noted continue with iv antibiotics dc iv fluids po fluid intake eval noted Problem List - Problems (1) UTI (urinary tract infection) Code(s): N39.0 - URINARY TRACT INFECTION, SITE NOT SPECIFIED (2) Pyelonephritis Code(s): N12 - TUBULO-INTERSTITIAL NEPHRITIS, NOT SPCF ACUTE OR CHRONIC
[2018-08-16] MEDS ORDERED: PT OWN MED DRAWER 7, Y5N ONE (10:59)
[2018-08-16] MEDS ORDERED: cefTRIAXone SODIUM 1 GM VIAL ONE (10:59)
[2018-08-16] MEDS ORDERED: DEXTROSE 5%-WATER - 50 ML IVPB ONE (10:59)
[2018-08-16] MEDS: CEFTRIAXONE 1 GM in DEXTROSE 5%-WATER - 50 ML IVPB SCH (11:01)
[2018-08-16] MEDS: HEPARIN NA (PORCINE) 5,000 UNITS/ML 1ML VIAL SQ SCH ×2 (11:01→21:43)
[2018-08-16] MEDS: LISINOPRIL 20 MG TABLET (FP) PO SCH (11:01)
[2018-08-16] MEDS: TAMOXIFEN CITRATE 10 MG TABLET PO SCH (11:02)
[2018-08-16] MEDS: BISACODYL 5 MG TABLET.DR (FP) PO PRN (21:43)
[2018-08-17] MEDS ORDERED: cefTRIAXone SODIUM 1 GM VIAL ONE (09:36)
[2018-08-17] MEDS ORDERED: DEXTROSE 5%-WATER - 50 ML IVPB ONE (09:36)
[2018-08-17] MEDS: LISINOPRIL 20 MG TABLET (FP) PO SCH (09:43)
[2018-08-17] MEDS: CEFTRIAXONE 1 GM in DEXTROSE 5%-WATER - 50 ML IVPB SCH (09:43)
[2018-08-17] MEDS: HEPARIN NA (PORCINE) 5,000 UNITS/ML 1ML VIAL SQ SCH ×2 (09:43→21:18)
[2018-08-17] MEDS ORDERED: PT OWN MED DRAWER 7, Y5N ONE (09:50)
[2018-08-17] MEDS: TAMOXIFEN CITRATE 10 MG TABLET PO SCH (09:52)
--- NOTE | 2018-08-17 12:25 | PN ---
Progress Note (short form) - Note Progress Note: No abd pain No dysuria feels well Vital Signs - 24 hr 08/16/18 08/16/18 08/16/18 19:27 21:00 21:21 Temperature 99.2 F 98.7 F Pulse Rate 62 64 Respiratory 20 17 17 Rate Blood Pressure 141/67 135/60 O2 Sat by Pulse 97 Oximetry (%) 08/17/18 08/17/18 08/17/18 02:00 05:30 08:47 Temperature 97.8 F 97.8 F 98.0 F Pulse Rate 71 62 56 L Respiratory 18 18 18 Rate Blood Pressure 138/75 146/76 157/77 O2 Sat by Pulse Oximetry (%) 08/17/18 08/17/18 09:00 12:00 Temperature 98.4 F Pulse Rate 60 Respiratory 18 Rate Blood Pressure 140/70 O2 Sat by Pulse 97 Oximetry (%) Current Medications Generic Name Dose Route Start Last Admin Trade Name Freq PRN Reason Stop Dose Admin Acetaminophen 500 mg 08/16/18 02:36 08/16/18 02:49 Tylenol - PO 500 mg Q6H PRN Administration FEVER Bisacodyl 5 mg 08/15/18 20:01 08/16/18 21:43 Dulcolax - PO 5 mg DAILY PRN Administration CONSTIPATION Heparin Sodium (Porcine) 5,000 unit 08/15/18 22:00 08/17/18 09:43 Heparin - SQ 5,000 unit BID NANCY Administration Ceftriaxone Sodium 1 gm/ 50 mls @ 100 mls/hr 08/16/18 10:00 08/17/18 09:43 Dextrose IVPB 100 mls/hr DAILY NANCY Administration Protocol Lisinopril 20 mg 08/15/18 10:00 08/17/18 09:43 Prinivil PO 20 mg DAILY NANCY Administration Morphine Sulfate 1 mg 08/15/18 09:47 Morphine Sulfate IVPUSH Q4H PRN PAIN LEVEL 4 - 6 Ondansetron HCl 4 mg 08/15/18 09:47 Zofran Injection IVPUSH Q6H PRN NAUSEA Tamoxifen Citrate 20 mg 08/15/18 11:30 08/17/18 09:52 Tamoxifen Citrate PO 20 mg DAILY NANCY Administration S1 S2 RRR Lungs clear Abd- soft, NT No edema PLAN ne fever Prelim urine culture results noted continue with iv antibiotics dc iv fluids po fluid intake eval noted possible dc in AM Problem List - Problems (1) UTI (urinary tract infection) Code(s): N39.0 - URINARY TRACT INFECTION, SITE NOT SPECIFIED (2) Pyelonephritis Code(s): N12 - TUBULO-INTERSTITIAL NEPHRITIS, NOT SPCF ACUTE OR CHRONIC
[2018-08-18] MEDS ORDERED: DEXTROSE 5%-WATER - 50 ML IVPB ONE (09:52)
[2018-08-18] MEDS ORDERED: cefTRIAXone SODIUM 1 GM VIAL ONE (09:52)
[2018-08-18] MEDS: HEPARIN NA (PORCINE) 5,000 UNITS/ML 1ML VIAL SQ SCH (10:12)
[2018-08-18] MEDS: LISINOPRIL 20 MG TABLET (FP) PO SCH (10:13)
[2018-08-18] MEDS: CEFTRIAXONE 1 GM in DEXTROSE 5%-WATER - 50 ML IVPB SCH (10:13)
[2018-08-18] MEDS ORDERED: PT OWN MED DRAWER 7, Y5N ONE (10:16)
[2018-08-18] MEDS: TAMOXIFEN CITRATE 10 MG TABLET PO SCH (10:18)
--- NOTE | 2018-08-18 12:00 | DS ---
Physical Examination Vital Signs: Vital Signs Temperature 98.1 F 08/18/18 08:52 Pulse Rate 55 L 08/18/18 08:52 Respiratory Rate 18 08/18/18 08:52 Blood Pressure 142/58 L 08/18/18 08:52 O2 Sat by Pulse Oximetry (%) 96 08/17/18 21:00 Constitutional: Yes: No Distress, Calm Cardiovascular: Yes: Regular Rate and Rhythm Respiratory: Yes: CTA Bilaterally Gastrointestinal: Yes: Normal Bowel Sounds, Soft. No: Tenderness Edema: No Labs: CBC, BMP 08/16/18 06:30 08/16/18 06:30 Discharge Summary Reason For Visit: PYELONEPHRITIS, HYPERTENSION Current Active Problems Pyelonephritis (Acute) UTI (urinary tract infection) (Acute) Ureteral stone with hydronephrosis (Acute) Urinary (tract) obstruction (Acute) Hospital Course: Admitted for UTI, pyelonephritis urine cultures positive for Ecoli Pt stable no fever or elevated WBC pt clinically stable for dc to home on po antibiotics Condition: Improved - Instructions Referrals: Mckenna Weaver MD [Primary Care Provider] - Disposition: HOME - Home Medications Comprehensive Discharge Medication List: Ambulatory Orders Lisinopril [Prinivil] 20 mg PO DAILY 12/31/15 Tamoxifen Citrate 20 mg PO DAILY 12/31/15 Calcium Carbonate/Vitamin D3 [Oysco D Tablet] 1 each PO BID 03/05/16 Alendronate Sodium [Binosto] 70 mg PO WEEKLY 05/29/18
[2018-08-18 15:20] VITALS: BP 173/80; PULSE 69; TEMP 98.3
== END 2018-08-18 16:20 | disposition home or self-care (01) | DRG 690 ==
LOC: JER 22:14 → JERBED 08-15 07:09 → J6S 08-15 08:36
PROVIDERS: ATTEND Internal Medicine
DX: N13.6 Pyonephrosis (principal); I10 Essential (primary) hypertension; M81.0 Age-related osteoporosis without current pathological fracture; Z85.3 Personal history of malignant neoplasm of breast; B96.20 Unspecified Escherichia coli [E. coli] as the cause of diseases classified elsewhere
CPT/HCPCS: 36415; 74178-TC; 80048; 80053; 81003; 81015; 83605; 83735; 85025; 87086; 87186; 97116-GP; 99284-25; J0131; J1644; J7030

== ENCOUNTER 2019-04-21 07:10 | Emergency (ER) | payer MEDICARE, OTHER | END 2019-04-21 11:47 | disposition home or self-care (01) | LOC: JER 07:10 ==

== ENCOUNTER 2019-06-24 11:07 | Emergency (ER) | payer MEDICARE, OTHER ==
[2019-06-24 11:21] VITALS: BP 165/58; PULSE 63; TEMP 97; BMI 25.0
[2019-06-24] MEDS ORDERED: ACETAMINOPHEN 500 MG TABLET (FP) PO ONE (11:41)
[2019-06-24] MEDS ORDERED: ACETAMINOPHEN 500 MG TABLET (FP) ONE (11:43)
--- NOTE | 2019-06-24 11:45 | PDOC ---
History of Present Illness - General Chief Complaint: Pain Stated Complaint: BILATERAL KNEE PAIN W/ SOB Time Seen by Provider: 06/24/19 11:25 History Source: Patient Exam Limitations: No Limitations - History of Present Illness Initial Comments: 06/24/19 11:41 HISTORY OF PRESENT ILLNESS: This is a 79-year-old woman with past medical history of osteoarthritis and osteoporosis presents the emergency department for evaluation of pain in the left popliteal which started 3 days ago. Patient reports the pain is now radiated around to the anterior side of the left knee and worsens while ascending and descending stairs. Patient is unable to describe the pain other than it is "very bad." Patient has not taken anything for the pain prior to arrival in the emergency department. She denies chest pain or shortness of breath. No recent travel or sick contacts. PAST MEDICAL HISTORY: Osteoarthritis and osteoporosis SURGICAL HISTORY: Denies ALLERGIES: No known drug allergies REVIEW OF SYSTEMS General/Constitutional: Denies fever or chills. Denies weakness, weight change. HEENT: Denies change in vision. Denies ear pain or discharge. Denies sore throat. Cardiovascular: Denies chest pain or shortness of breath. Respiratory: Denies cough, wheezing, or hemoptysis. Gastrointestinal: Denies nausea, vomiting, diarrhea or constipation. Denies rectal bleeding. Genitourinary: Denies dysuria, frequency, or change in urination. Musculoskeletal: See HPI Skin and breasts: Denies rash or easy bruising. Neurologic: Denies headache, vertigo, loss of consciousness, or loss of sensation. Psychiatric: Denies depression or anxiety. Endocrine: Denies increased thirst. Denies abnormal weight change. Hematologic/Lymphatic: Denies anemia, easy bleeding, or history of blood clots. Allergic/Immunologic: Denies hives or skin allergy. Denies latex allergy. PHYSICAL EXAM General Appearance: Well-appearing, appropriately dressed. No apparent distress , no intoxication. Respiratory/Chest: Lungs CTAB. No shortness of breath, chest tenderness, respiratory distress, accessory muscle use. No crackles, rales, rhonchi, stridor , wheezing, dullness Cardiovascular: RRR. S1, S2. No JVD, murmur, bradycardia, tachycardia. Vascular Pulses: Dorsalis-Pedis (R): 2+, Dorsalis-Pedis (L): 2+ Gastrointestinal/Abdominal: Normal bowel sounds. Abdomen soft, non-distended. No tenderness or rebound tenderness. No organomegaly, pulsatile mass, guarding, hernia, hepatomegaly, splenomegaly. Lymphatic: No adenopathy, tenderness. Musculoskeletal/Extremities: Normal inspection. FROM of all extremities, normal capillary refill. Pelvis Stable. No CVA tenderness. No tenderness to extremities, pedal edema, swelling, erythema or deformity. Negative Homans sign. No palpable masses present in the left popliteal. Minor tenderness in the left popliteal. Integumentary: Appropriate color, dry, warm. No cyanosis, erythema, jaundice or rash 06/24/19 11:43 Past History - Past Medical History Allergies/Adverse Reactions: Allergies Allergy/AdvReac Type Severity Reaction Status Date / Time No Known Drug Allergies Allergy Verified 06/24/19 11:21 SHRIMP Allergy Severe Rash Uncoded 06/24/19 11:21 Home Medications: Ambulatory Orders Calcium Carbonate/Vitamin D3 [Oyster Shell 500-Vit D3 200 Tb] 1 each PO DAILY Lisinopril [Zestril] 20 mg PO DAILY 04/21/19 Pantoprazole Sodium [Protonix] 40 mg PO DAILY 04/21/19 Paroxetine HCl [Paxil -] 20 mg PO DAILY 04/21/19 Solifenacin Succinate [Vesicare -] 5 mg PO DAILY 04/21/19 Tamoxifen Citrate 20 mg PO DAILY 04/21/19 Naproxen [Naprosyn -] 500 mg PO BID #14 tablet 06/24/19 Anemia: No Asthma: No Cancer: Yes (BREAST rt) Cardiac Disorders: Yes CVA: No COPD: No CHF: No DVT: No Dementia: No Diabetes: No GI Disorders: No Disorders: No HTN: Yes Hypercholesterolemia: No Liver Disease: No Seizures: No Thyroid Disease: No Other medical history: arthritis and osteoparosis - Surgical History Abdominal Surgery: Yes Appendectomy: No Cardiac Surgery: Yes (CATHETERIZATION) Cholecystectomy: Yes Lung Surgery: No Neurologic Surgery: Yes (SPINAL SX) Orthopedic Surgery: No - Immunization History Td Vaccination: Yes Immunization Up to Date: Yes - Psycho Social/Smoking Cessation Hx Smoking Status: No Smoking History: Never smoked Years of Tobacco Use: 0 Have you smoked in the past 12 months: No Number of Cigarettes Smoked Daily: 0 Cigars Per Day: 0 Hx Alcohol Use: No Drug/Substance Use Hx: No Substance Use Type: None Hx Substance Use Treatment: No *Physical Exam - Vital Signs Last Vital Signs Temp Pulse Resp BP Pulse Ox 97 F L 63 18 165/58 L 99 06/24/19 11:19 06/24/19 11:19 06/24/19 11:19 06/24/19 11:19 06/24/19 11:19 ED Treatment Course - RADIOLOGY Radiology Studies Ordered: Category Date Time Status KNEE 2 POS-LEFT [RAD] Stat Radiology 06/24/19 11:40 Ordered DUPLEX VASCUL US-1 LEG [US] Stat Ultrasound 06/24/19 11:40 Ordered Medical Decision Making - Medical Decision Making 06/24/19 11:44 A/P: 79-year-old woman with atraumatic left knee pain Given tenderness in the popliteal area we will get an ultrasound to rule out DVT X-ray of the left knee PERC score 0. Tylenol 1 g orally now Reassess 06/24/19 12:30 X-rays read by Dr. Iraheta: Worsening arthritis DVT study pending 06/24/19 13:13 Ultrasound was read by Dr. Iraheta: No evidence of DVT. Discharge home I discussed the physical exam findings, ancillary test results and final diagnoses with the patient. I answered all of the patient's questions. The patient was satisfied with the care received and felt comfortable with the discharge plan and treatment plan. The patient will call their primary care physician within 24 hours to arrange follow-up and will return to the Emergency Department with any new, persistent or worsening symptoms. Discharge - Discharge Information Problems reviewed: Yes Clinical Impression/Diagnosis: Arthritis Condition: Stable Disposition: HOME - Admission No - Additional Discharge Information Prescriptions: Naproxen [Naprosyn -] 500 mg PO BID #14 tablet - Follow up/Referral - Patient Discharge Instructions Additional Instructions: Take Naprosyn as directed for pain. Your emergency department visit is incomplete to follow-up with your primary doctor. Return to the emergency department for worsening pain or for any new or worsening symptoms. Thank you very much for choosing us to provide your emergent health care needs. - Post Discharge Activity
--- NOTE | 2019-06-26 11:06 | EKG ---
Test Reason : Blood Pressure : / mmHG Vent. Rate : 063 BPM Atrial Rate : 063 BPM P-R Int : 154 ms QRS Dur : 082 ms QT Int : 420 ms P-R-T Axes : 048 040 109 degrees QTc Int : 429 ms NORMAL SINUS RHYTHM LEFT VENTRICULAR HYPERTROPHY WITH REPOLARIZATION ABNORMALITY ABNORMAL ECG WHEN COMPARED WITH ECG OF 21-APR-2019 09:02, NONSPECIFIC T WAVE ABNORMALITY HAS REPLACED INVERTED T WAVES IN INFERIOR LEADS T WAVE INVERSION MORE EVIDENT IN LATERAL LEADS Confirmed by Inocencio Vidales MD ([id number]) on 06/26/2019 11:06:01 AM Referred By: Confirmed By:Inocencio Vidales MD
== END 2019-06-24 13:23 | disposition home or self-care (01) ==
LOC: JERFT 11:07
DX: M17.12 Unilateral primary osteoarthritis, left knee (principal); I10 Essential (primary) hypertension; Z98.61 Coronary angioplasty status; M81.0 Age-related osteoporosis without current pathological fracture; Z91.013 Allergy to seafood
CPT/HCPCS: 73560-TC-LT-FY; 93005; 93010; 93971-TC; 99281-25

== ENCOUNTER 2020-09-30 17:50 | Emergency (ER) | payer MEDICARE, OTHER ==
[2020-09-30 18:00] VITALS: BP 152/77; PULSE 65; TEMP 97.8; BMI 22.4
[2020-09-30] MEDS ORDERED: ACETAMINOPHEN 325 MG TABLET (FP) PO ONE (19:50)
[2020-09-30] MEDS ORDERED: ACETAMINOPHEN 325 MG TABLET (FP) ONE (20:21)
[2020-09-30 20:36] LABS: HEMATOCRIT 40.7 % (32.4-45.2); HEMOGLOBIN 13.6 GM/dl (10.7-15.3); MCH 32.5 pg (25.7-33.7); MCHC 33.4 g/dl (32.0-36.0); MEAN CELL VOLUME 97.3 fl (80-96); MEAN PLT VOLUME 7.8 fl (7.5-11.1); MONO % 5.2 % (3.8-10.2); NEUT % 66.8 % (42.8-82.8); PLATELET COUNT 191 K/MM3 (134-434); RBC 4.18 M/mm3 (3.60-5.2); RDW 14.2 % (11.6-15.6); WHITE BLOOD COUNT 9.1 K/mm3 (4.0-10.8)
[2020-09-30 20:44] LABS: ALBUMIN 4.1 g/dl (3.4-5.0); BILIRUBIN,TOTAL 0.5 mg/dl (0.2-1); CALCIUM 8.3 mg/dl (8.5-10); CREATININE 0.7 mg/dl (0.55-1.3); TOT PROT 7.2 g/dl (6.4-8.2)
== END 2020-09-30 22:28 | disposition home or self-care (01) ==
LOC: FER 17:50
DX: R07.81 Pleurodynia (principal)
CPT/HCPCS: 36415; 71045-TC-FY; 74150-TC; 80053; 81003; 81015; 83690; 84484; 85025; 87086; 93005; 99285-25

== ENCOUNTER 2021-05-15 10:59 | Inpatient (IN) | payer MEDICARE, OTHER ==
[2021-05-15 13:17] LABS: BASO % 1.5 % (0-2.0); EOS % 1.6 % (0-4.5); HEMATOCRIT 42.4 % (32.4-45.2); HEMOGLOBIN 14.5 GM/dL (10.7-15.3); LYMPH % 32.8 % (8-40); MCH 33.1 pg (25.7-33.7); MCHC 34.3 g/dl (32.0-36.0); MEAN CELL VOLUME 96.6 fl (80-96); MEAN PLT VOLUME 6.9 fl (7.5-11.1); MONO % 5.6 % (3.8-10.2); NEUT % 58.5 % (42.8-82.8); PLATELET COUNT 216 10^3/uL (134-434); RBC 4.39 M/mm3 (3.60-5.2); RDW 13.8 % (11.6-15.6); WHITE BLOOD COUNT 5.6 K/mm3 (4.0-10.0)
[2021-05-15 13:19] LABS: INR 0.93 (0.83-1.09); PROTHROMBIN TIME (PATIENT) 11.3 SEC (9.7-13.0)
[2021-05-15 13:21] LABS: ACTIVATED PTT 25.3 SECONDS (25.2-36.5)
[2021-05-15 13:28] LABS: CHLORIDE 102 mmol/L (98-107); SODIUM 134 mmol/L (136-145)
[2021-05-15 13:30] LABS: CALCIUM 8.8 mg/dL (8.5-10.1)
[2021-05-15 13:31] LABS: BLOOD UREA NITROGEN 12.4 mg/dL (7-18); CO2 26 mmol/L (21-32); GLUCOSE,RANDOM 86 mg/dL (74-106)
[2021-05-15 13:35] LABS: BILIRUBIN,TOTAL 0.3 mg/dL (0.2-1); CREATININE 0.8 mg/dL (0.55-1.3); SGOT/AST 57 U/L (15-37); SGPT/ALT 22 U/L (13-61); TOT PROT 8.7 g/dl (6.4-8.2)
[2021-05-15 13:37] LABS: ALK PHOS 41 U/L (45-117)
[2021-05-15 14:07] LABS: ANION GAP 6 MMOL/L (8-16)
[2021-05-15 15:58] LABS: BLOOD UREA NITROGEN 11.2 mg/dL (7-18); CALCIUM 8.8 mg/dL (8.5-10.1)
[2021-05-15 16:02] LABS: CREATININE 0.6 mg/dL (0.55-1.3)
[2021-05-16 00:08] VITALS: BMI 26.2
[2021-05-16] MEDS ORDERED: ASPIRIN 81 MG CHEWABLE TABLETS PO SCH (10:00)
[2021-05-16] MEDS: LISINOPRIL 20 MG TABLET PO SCH (10:06)
[2021-05-16] MEDS: PANTOPRAZOLE 40 MG TABLET PO SCH (10:06)
[2021-05-16] MEDS: TAMOXIFEN CITRATE 10 MG TABLET PO SCH (11:25)
[2021-05-16] MEDS: ATORVASTATIN CA 80 MG TABLET (FP) PO SCH (22:13)
[2021-05-17] MEDS ORDERED: ASPIRIN 325 MG TABLET PO SCH (10:00)
[2021-05-17] MEDS ORDERED: ACETAMINOPHEN 325 MG TABLET (FP) PO PRN (10:07)
[2021-05-17] MEDS ORDERED: PT OWN MED DRAWER 7, Y5N ONE (10:24)
[2021-05-17] MEDS: PANTOPRAZOLE 40 MG TABLET PO SCH (10:48)
[2021-05-17] MEDS: LISINOPRIL 20 MG TABLET PO SCH (10:48)
[2021-05-17] MEDS: TAMOXIFEN CITRATE 10 MG TABLET PO SCH (10:49)
[2021-05-17] MEDS: ATORVASTATIN CA 80 MG TABLET (FP) PO SCH (21:24)
[2021-05-17] MEDS: HEPARIN NA (PORCINE) 5,000 UNITS/ML 1ML VIAL SQ SCH (21:24)
[2021-05-18] MEDS ORDERED: PT OWN MED DRAWER 7, Y5N ONE (10:33)
[2021-05-18] MEDS: LISINOPRIL 20 MG TABLET PO SCH (10:34)
[2021-05-18] MEDS: ASPIRIN 81 MG CHEWABLE TABLETS PO SCH (10:34)
[2021-05-18] MEDS: PANTOPRAZOLE 40 MG TABLET PO SCH (10:34)
[2021-05-18] MEDS: HEPARIN NA (PORCINE) 5,000 UNITS/ML 1ML VIAL SQ SCH ×2 (10:34→21:22)
[2021-05-18] MEDS: TAMOXIFEN CITRATE 10 MG TABLET PO SCH (10:34)
[2021-05-18] MEDS: ATORVASTATIN CA 80 MG TABLET (FP) PO SCH (21:22)
[2021-05-19] MEDS ORDERED: PT OWN MED DRAWER 7, Y5N ONE (09:43)
[2021-05-19] MEDS: LISINOPRIL 20 MG TABLET PO SCH (09:58)
[2021-05-19] MEDS: ASPIRIN 81 MG CHEWABLE TABLETS PO SCH (09:58)
[2021-05-19] MEDS: HEPARIN NA (PORCINE) 5,000 UNITS/ML 1ML VIAL SQ SCH (09:58)
[2021-05-19] MEDS: TAMOXIFEN CITRATE 10 MG TABLET PO SCH (09:58)
[2021-05-19] MEDS: PANTOPRAZOLE 40 MG TABLET PO SCH (09:58)
[2021-05-19 12:20] VITALS: BP 176/77; PULSE 65; TEMP 98.2
== END 2021-05-19 16:10 | disposition home or self-care (01) | DRG 65 ==
LOC: JER 10:59 → JERBED 15:45 → J6S 23:01 → J4S 05-18 17:00
PROVIDERS: ADMIT Internal Medicine; ATTEND Internal Medicine
DX: I63.9 Cerebral infarction, unspecified (principal); G81.91 Hemiplegia, unspecified affecting right dominant side; I10 Essential (primary) hypertension; M81.0 Age-related osteoporosis without current pathological fracture; N20.0 Calculus of kidney; Z85.3 Personal history of malignant neoplasm of breast
CPT/HCPCS: 36415; 70450-TC; 70551-TC; 80048; 80053; 80061; 82550; 82553; 82607; 84443; 84484; 85025; 85610; 85730; 93005; 93010; 93306-TC; 93880-TC; 97116-GP; 97161-GP; 99285-25; C9803; J1644; U0003; U0005

== ENCOUNTER 2021-08-11 10:15 | Observation (INO) | payer MEDICARE, OTHER ==
[2021-08-11] MEDS ORDERED: ACETAMINOPHEN 1000 MG/100 ML VIAL IVPB ONE (12:57)
[2021-08-11] MEDS ORDERED: ALBUTEROL SO4 HFA INHALER IH ONE ×2 (12:57→13:03)
[2021-08-11] MEDS ORDERED: ACETAMINOPHEN INJECTION 100 ML IVPB ONE (13:03)
[2021-08-11 13:39] LABS: BASO % 0.3 % (0-2.0); EOS % 0.4 % (0-4.5); HEMATOCRIT 37.7 % (32.4-45.2); HEMOGLOBIN 12.7 GM/dL (10.7-15.3); LYMPH % 15.6 % (8-40); MCH 32.5 pg (25.7-33.7); MCHC 33.8 g/dl (32.0-36.0); MEAN CELL VOLUME 96.4 fl (80-96); MONO % 5.6 % (3.8-10.2); NEUT % 78.1 % (42.8-82.8); PLATELET COUNT 191 10^3/uL (134-434); RBC 3.91 M/mm3 (3.60-5.2); RDW 14.8 % (11.6-15.6); WHITE BLOOD COUNT 8.4 K/mm3 (4.0-10.0)
[2021-08-11 13:54] LABS: INR 0.97 (0.83-1.09); PROTHROMBIN TIME (PATIENT) 11.3 SEC (9.7-13.0)
[2021-08-11 13:55] LABS: CALCIUM 8.7 mg/dL (8.5-10.1)
[2021-08-11 13:56] LABS: ALBUMIN 3.4 g/dl (3.4-5.0); BLOOD UREA NITROGEN 14.4 mg/dL (7-18); MAGNESIUM 2.2 mg/dL (1.8-2.4)
[2021-08-11 13:57] LABS: ACTIVATED PTT 27.6 SECONDS (25.2-36.5)
[2021-08-11 13:59] LABS: CREATININE 0.8 mg/dL (0.55-1.3)
[2021-08-11 14:00] LABS: TOT PROT 7.1 g/dl (6.4-8.2)
[2021-08-11 14:02] LABS: BILIRUBIN,TOTAL 0.3 mg/dL (0.2-1)
[2021-08-11 15:37] LABS: N-TERMINAL BNP 4270.8 pg/ml (5-450)
[2021-08-11 15:53] LABS: URINE APPEARANCE CLEAR; URINE BILIRUBIN NEGATIVE (NEGATIVE); URINE COLOR YELLOW; URINE GLUCOSE (UA) NEGATIVE (NEGATIVE); URINE KETONE NEGATIVE (NEGATIVE); URINE LEUK ESTERASE NEGATIVE (NEGATIVE); URINE NITRITE NEGATIVE (NEGATIVE); URINE PROTEIN NEGATIVE (NEGATIVE); URINE UROBILINOGEN 0.2 mg/dL (0.2-1.0)
[2021-08-11] MEDS: BUDESONIDE/FORMETEROL FUMARATE 160/4.5 mcg INHALER IH SCH ×2 (22:05→23:40)
[2021-08-11] MEDS: ATORVASTATIN CA 80 MG TABLET (FP) PO SCH (22:05)
[2021-08-12] MEDS ORDERED: MAG HYDROX/AL HYDROX/SIMETH -MYLANTA- ORAL SUSPENSION PO PRN (01:33)
[2021-08-12] MEDS ORDERED: PT OWN MED DRAWER 7, Y5N ONE ×2 (05:10→09:15)
[2021-08-12] MEDS: ACETAMINOPHEN 325 MG TABLET (FP) PO PRN (06:15)
[2021-08-12 07:00] LABS: BASO % 0.5 % (0-2.0); EOS % 1.9 % (0-4.5); HEMATOCRIT 36.2 % (32.4-45.2); HEMOGLOBIN 12.4 GM/dL (10.7-15.3); LYMPH % 21.9 % (8-40); MCH 33.2 pg (25.7-33.7); MCHC 34.2 g/dl (32.0-36.0); MEAN CELL VOLUME 97.1 fl (80-96); MEAN PLT VOLUME 8.2 fl (7.5-11.1); MONO % 6.8 % (3.8-10.2); NEUT % 68.9 % (42.8-82.8); PLATELET COUNT 189 10^3/uL (134-434); RBC 3.73 M/mm3 (3.60-5.2); RDW 14.5 % (11.6-15.6); WHITE BLOOD COUNT 6.1 K/mm3 (4.0-10.0)
[2021-08-12 07:25] LABS: BLOOD UREA NITROGEN 10.6 mg/dL (7-18); CALCIUM 7.9 mg/dL (8.5-10.1)
[2021-08-12 07:28] LABS: CREATININE 0.7 mg/dL (0.55-1.3)
[2021-08-12 07:30] LABS: BILIRUBIN,TOTAL 0.5 mg/dL (0.2-1); TOT PROT 6.2 g/dl (6.4-8.2)
[2021-08-12] MEDS: BUDESONIDE/FORMETEROL FUMARATE 160/4.5 mcg INHALER IH SCH ×2 (09:48→21:32)
[2021-08-12] MEDS: ASPIRIN 81 MG CHEWABLE TABLETS PO SCH (09:49)
[2021-08-12] MEDS: LISINOPRIL 20 MG TABLET PO SCH (09:49)
[2021-08-12] MEDS ORDERED: BISACODYL 5 MG TABLET.DR (FP) PO PRN (11:23)
[2021-08-12] MEDS: FUROSEMIDE 40 MG/4 ML INJECTABLE VIAL IVPUSH SCH (11:32)
[2021-08-12] MEDS: TAMOXIFEN CITRATE 10 MG TABLET PO SCH (11:33)
[2021-08-12] MEDS: LIDOCAINE 5% TOPICAL PATCH TP SCH (14:38)
[2021-08-12] MEDS: ENOXAPARIN NA (PORCINE) 40 MG/0.4 ML DISP.SYRIN SQ SCH (14:38)
[2021-08-12] MEDS: POLYETHYLENE GLYCOL (HEALTHYLAX) 3350 17 GM PACKET PO SCH ×2 (14:38→21:31)
[2021-08-12 15:35] VITALS: BMI 20.7
[2021-08-12] MEDS: ATORVASTATIN CA 80 MG TABLET (FP) PO SCH (21:31)
[2021-08-12] MEDS ORDERED: LIDOCAINE PATCH REMOVAL MC SCH (22:00)
[2021-08-13] MEDS ORDERED: MAG HYDROX/AL HYDROX/SIMETH 30 ML UNIT-DOSE CUP PO PRN (00:04)
[2021-08-13 05:13] VITALS: PULSE 64
[2021-08-13 09:03] VITALS: BP 155/54; TEMP 98
[2021-08-13] MEDS ORDERED: PT OWN MED DRAWER 7, Y5N ONE (09:55)
[2021-08-13] MEDS: LIDOCAINE 5% TOPICAL PATCH TP SCH (10:34)
[2021-08-13] MEDS: ENOXAPARIN NA (PORCINE) 40 MG/0.4 ML DISP.SYRIN SQ SCH (10:37)
[2021-08-13] MEDS: POLYETHYLENE GLYCOL (HEALTHYLAX) 3350 17 GM PACKET PO SCH (10:37)
[2021-08-13] MEDS: ASPIRIN 81 MG CHEWABLE TABLETS PO SCH (10:37)
[2021-08-13] MEDS: LISINOPRIL 20 MG TABLET PO SCH (10:37)
[2021-08-13] MEDS: TAMOXIFEN CITRATE 10 MG TABLET PO SCH (10:38)
[2021-08-13] MEDS: FUROSEMIDE 40 MG/4 ML INJECTABLE VIAL IVPUSH SCH (10:41)
[2021-08-13] MEDS: BUDESONIDE/FORMETEROL FUMARATE 160/4.5 mcg INHALER IH SCH (10:47)
[2021-08-13] MEDS: ACETAMINOPHEN 325 MG TABLET (FP) PO PRN (16:32)
== END 2021-08-13 20:29 | disposition home or self-care (01) ==
LOC: JER 10:15 → JERBED 13:02 → INTOOBSV 13:02 → J4W 20:24
PROVIDERS: ADMIT Internal Medicine; ATTEND Internal Medicine
PROC: 3E033NZ Introduction of Analgesics, Hypnotics, Sedatives into Peripheral Vein, Percutaneous Approach (ICD-10-PCS; principal; 2021-08-11)
PROC: 3E023GC Introduction of Other Therapeutic Substance into Muscle, Percutaneous Approach (ICD-10-PCS; 2021-08-11)
PROC: 3E033GC Introduction of Other Therapeutic Substance into Peripheral Vein, Percutaneous Approach (ICD-10-PCS; 2021-08-11)
DX: R55 Syncope and collapse (principal); Z85.3 Personal history of malignant neoplasm of breast; I10 Essential (primary) hypertension; Z86.73 Personal history of transient ischemic attack (TIA), and cerebral infarction without residual deficits; M81.0 Age-related osteoporosis without current pathological fracture; R29.6 Repeated falls; Z91.013 Allergy to seafood; Z90.10 Acquired absence of unspecified breast and nipple
CPT/HCPCS: 36415; 70450-TC; 71250-TC; 71275-TC; 72125-TC; 72170-TC-FY; 73564-TC-RT-FY; 73590-TC-RT-FY; 74018-TC-FY; 80053; 81003; 82550; 83735; 83880; 84439; 84443; 84484; 85025; 85379; 85610; 85730; 87086; 93005; 93010; 93306-TC; 93880-TC; 96372; 96374; 96375; 97116-GP; 97161-GP; 99285-25; C9803; G0378; J0131; Q9967; U0003; U0005

== ENCOUNTER 2021-09-02 20:11 | Emergency (ER) | payer MEDICARE, OTHER ==
[2021-09-02 20:30] VITALS: BMI 26.4
[2021-09-02 21:32] LABS: EPITHELIAL CELLS FEW /hpf
[2021-09-02] MEDS ORDERED: ACETAMINOPHEN 325 MG TABLET (FP) PO ONE (21:49)
[2021-09-02] MEDS ORDERED: ACETAMINOPHEN 325 MG TABLET (FP) ONE (21:50)
[2021-09-02 22:29] LABS: BASO % 0.5 % (0-2.0); EOS % 1.8 % (0-4.5); HEMOGLOBIN 13.2 GM/dL (10.7-15.3); LYMPH % 24.4 % (8-40); MCH 32.9 pg (25.7-33.7); MCHC 33.9 g/dl (32.0-36.0); MEAN CELL VOLUME 97.1 fl (80-96); MEAN PLT VOLUME 8.3 fl (7.5-11.1); MONO % 5.7 % (3.8-10.2); NEUT % 67.6 % (42.8-82.8); PLATELET COUNT 318 10^3/uL (134-434); RBC 4.01 M/mm3 (3.60-5.2); WHITE BLOOD COUNT 7.3 K/mm3 (4.0-10.0)
[2021-09-02] MEDS ORDERED: KETOROLAC TROMETHAMINE 30 MG/1 ML VIAL IVPUSH ONE (23:47)
[2021-09-02] MEDS ORDERED: KETOROLAC TROMETHAMINE 15 MG/ML VIAL ONE (23:51)
[2021-09-03 00:35] VITALS: BP 129/51; PULSE 69; TEMP 98.5
[2021-09-03 00:40] LABS: CALCIUM 8.7 mg/dL (8.5-10.1)
[2021-09-03 00:41] LABS: ALBUMIN 3.4 g/dl (3.4-5.0); BLOOD UREA NITROGEN 12.6 mg/dL (7-18)
[2021-09-03 00:44] LABS: CREATININE 0.7 mg/dL (0.55-1.3)
[2021-09-03 00:45] LABS: TOT PROT 6.9 g/dl (6.4-8.2)
[2021-09-03 00:46] LABS: BILIRUBIN,TOTAL 0.4 mg/dL (0.2-1)
== END 2021-09-03 01:21 | disposition home or self-care (01) ==
LOC: FER 20:11
PROC: 3E0333Z Introduction of Anti-inflammatory into Peripheral Vein, Percutaneous Approach (ICD-10-PCS; principal; 2021-09-02)
DX: M54.6 Pain in thoracic spine (principal); W01.0XXA Fall on same level from slipping, tripping and stumbling without subsequent striking against object, initial encounter
CPT/HCPCS: 36415; 71045-TC-FY; 74176-TC; 80053; 81003; 81015; 82550; 83690; 84484; 85025; 93005; 99285-25; C9803; U0003; U0005

== ENCOUNTER 2021-11-02 20:01 | Inpatient (IN) | payer MEDICARE, OTHER ==
[2021-11-02] MEDS ORDERED: morphine CARPU-JECT 2 MG/1 ML DISP.SYRIN IVPUSH ONE (20:43)
[2021-11-02 21:33] LABS: BASO % 0.4 % (0-2.0); EOS % 0.4 % (0-4.5); HEMATOCRIT 38.1 % (32.4-45.2); HEMOGLOBIN 12.8 GM/dL (10.7-15.3); LYMPH % 10.9 % (8-40); MCH 32.3 pg (25.7-33.7); MCHC 33.7 g/dl (32.0-36.0); MEAN CELL VOLUME 95.7 fl (80-96); MEAN PLT VOLUME 7.3 fl (7.5-11.1); MONO % 4.6 % (3.8-10.2); NEUT % 83.7 % (42.8-82.8); PLATELET COUNT 220 10^3/uL (134-434); RBC 3.98 M/mm3 (3.60-5.2); RDW 14.2 % (11.6-15.6); WHITE BLOOD COUNT 8.7 K/mm3 (4.0-10.0)
[2021-11-02 21:37] LABS: INR 1.03 (0.83-1.09); PROTHROMBIN TIME (PATIENT) 11.9 SEC (9.7-13.0)
[2021-11-02 21:40] LABS: ACTIVATED PTT 28.6 SECONDS (25.2-36.5)
[2021-11-02 21:51] LABS: CALCIUM 9.1 mg/dL (8.5-10.1)
[2021-11-02 21:52] LABS: ALBUMIN 3.4 g/dl (3.4-5.0); BLOOD UREA NITROGEN 8.8 mg/dL (7-18)
[2021-11-02 21:55] LABS: CREATININE 0.6 mg/dL (0.55-1.3)
[2021-11-02 21:57] LABS: BILIRUBIN,TOTAL 0.2 mg/dL (0.2-1); TOT PROT 6.9 g/dl (6.4-8.2)
[2021-11-02] MEDS ORDERED: POLYETHYLENE GLYCOL (HEALTHYLAX) 3350 17 GM PACKET PO PRN (23:31)
[2021-11-02] MEDS ORDERED: ACETAMINOPHEN 1000 MG/100 ML BAG IVPB PRN (23:38)
[2021-11-03 02:44] VITALS: BMI 21.2
[2021-11-03 09:49] LABS: BASO % 0.1 % (0-2.0); HEMATOCRIT 34.8 % (32.4-45.2); HEMOGLOBIN 11.9 GM/dL (10.7-15.3); LYMPH % 8.3 % (8-40); MCH 32.7 pg (25.7-33.7); MCHC 34.2 g/dl (32.0-36.0); MEAN CELL VOLUME 95.6 fl (80-96); MEAN PLT VOLUME 7.6 fl (7.5-11.1); MONO % 3.1 % (3.8-10.2); NEUT % 88.5 % (42.8-82.8); PLATELET COUNT 227 10^3/uL (134-434); RBC 3.64 M/mm3 (3.60-5.2); RDW 13.7 % (11.6-15.6); WHITE BLOOD COUNT 9.9 K/mm3 (4.0-10.0)
[2021-11-03] MEDS ORDERED: LISINOPRIL 20 MG TABLET PO SCH (10:00)
[2021-11-03] MEDS ORDERED: PANTOPRAZOLE 20 MG TABLET PO ONE (10:00)
[2021-11-03] MEDS ORDERED: SODIUM CHLORIDE 1,000 ML IV SCH (10:00)
[2021-11-03 10:12] LABS: CALCIUM 8.8 mg/dL (8.5-10.1)
[2021-11-03 10:13] LABS: BLOOD UREA NITROGEN 8.9 mg/dL (7-18)
[2021-11-03 10:16] LABS: CREATININE 0.6 mg/dL (0.55-1.3)
[2021-11-03] MEDS ORDERED: PROPOFOL 20 ML ONE (17:54)
[2021-11-03] MEDS ORDERED: MIDAZOLAM HCL 2 MG/2 ML SINGLE DOSE VIAL ONE (17:54)
[2021-11-03] MEDS ORDERED: ceFAZolin SODIUM 1 GM VIAL IVPB ONE (18:20)
[2021-11-03] MEDS ORDERED: ceFAZolin SODIUM 1 GM VIAL ONE (18:53)
[2021-11-03] MEDS ORDERED: DEXAMETHASONE SOD PHOSPHATE 4 MG/1 ML VIAL ONE (18:53)
[2021-11-03] MEDS ORDERED: ONDANSETRON 4 MG/2 ML VIAL ONE (19:43)
[2021-11-03] MEDS ORDERED: ONDANSETRON 4 MG/2 ML VIAL IVPUSH ONE (19:44)
[2021-11-03] MEDS: SODIUM CHLORIDE 1,000 ML IV SCH ×2 (19:50→21:41)
[2021-11-03] MEDS ORDERED: ACETAMINOPHEN 1000 MG/100 ML BAG IVPB PRN (19:50)
[2021-11-03] MEDS ORDERED: ONDANSETRON 4 MG/2 ML VIAL IVPUSH PRN (19:54)
[2021-11-03] MEDS ORDERED: PROMETHAZINE HCL 25 MG/1 ML VIAL IVPUSH PRN (20:41)
[2021-11-03] MEDS ORDERED: PROMETHAZINE HCL 25 MG/1 ML VIAL IVPB ONE (20:45)
[2021-11-03] MEDS: DOCUSATE SODIUM 100 MG CAPSULE (FP) PO SCH (21:43)
[2021-11-03] MEDS: ATORVASTATIN CA 80 MG TABLET (FP) PO SCH (21:43)
[2021-11-03] MEDS ORDERED: CELECOXIB 50 MG PO SCH (22:00)
[2021-11-03] MEDS ORDERED: ATORVASTATIN CA 80 MG TABLET (FP) PO SCH (22:00)
[2021-11-04] MEDS ORDERED: ceFAZolin SODIUM 1 GM VIAL ONE ×3 (01:25→16:43)
[2021-11-04] MEDS ORDERED: DEXTROSE 5%-WATER - 50 ML IVPB ONE ×3 (01:26→16:43)
[2021-11-04] MEDS: CEFAZOLIN 1 GM in DEXTROSE 5%-WATER - 1 GM/50 ML IVPB IVPB SCH ×3 (01:27→17:05)
[2021-11-04] MEDS: DOCUSATE SODIUM 100 MG CAPSULE (FP) PO SCH ×3 (06:23→21:36)
[2021-11-04] MEDS: oxyCODONE HCL 5 MG TABLET PO PRN ×2 (06:28→21:54)
[2021-11-04] MEDS: SODIUM CHLORIDE 1,000 ML IV SCH (06:33)
[2021-11-04 08:58] LABS: BASO % 0.6 % (0-2.0); HEMATOCRIT 26.7 % (32.4-45.2); HEMOGLOBIN 9.2 GM/dL (10.7-15.3); LYMPH % 12.5 % (8-40); MCH 33.6 pg (25.7-33.7); MCHC 34.4 g/dl (32.0-36.0); MEAN CELL VOLUME 97.7 fl (80-96); MEAN PLT VOLUME 7.2 fl (7.5-11.1); MONO % 6.6 % (3.8-10.2); NEUT % 80.3 % (42.8-82.8); PLATELET COUNT 167 10^3/uL (134-434); RBC 2.73 M/mm3 (3.60-5.2); RDW 14.3 % (11.6-15.6); WHITE BLOOD COUNT 8.5 K/mm3 (4.0-10.0)
[2021-11-04 09:30] LABS: ALBUMIN 2.8 g/dl (3.4-5.0); BLOOD UREA NITROGEN 11.4 mg/dL (7-18)
[2021-11-04 09:33] LABS: CREATININE 0.7 mg/dL (0.55-1.3)
[2021-11-04 09:34] LABS: BILIRUBIN,TOTAL 0.5 mg/dL (0.2-1)
[2021-11-04 09:35] LABS: TOT PROT 5.5 g/dl (6.4-8.2)
[2021-11-04 09:38] LABS: CALCIUM 7.3 mg/dL (8.5-10.1)
[2021-11-04] MEDS ORDERED: TAMOXIFEN CITRATE 10 MG TABLET PO SCH (10:00)
[2021-11-04] MEDS ORDERED: CALCIUM 500MG/VIT-D 200 UNITS COMBO TABLET (FP) PO SCH (10:00)
[2021-11-04] MEDS ORDERED: PANTOPRAZOLE 40 MG TABLET PO SCH (10:00)
[2021-11-04] MEDS: CALCIUM 500MG/VIT-D 200 UNITS COMBO TABLET (FP) PO SCH (10:16)
[2021-11-04] MEDS: PANTOPRAZOLE 40 MG TABLET PO SCH (10:16)
[2021-11-04] MEDS: MULTIVITAMINS (DAILY MVI) TABLET (FP) PO SCH (10:16)
[2021-11-04] MEDS: ACETAMINOPHEN 325 MG TABLET (FP) PO PRN (10:16)
[2021-11-04] MEDS: ENOXAPARIN NA (PORCINE) 40 MG/0.4 ML DISP.SYRIN SQ SCH (10:16)
[2021-11-04] MEDS: TAMOXIFEN CITRATE 10 MG TABLET PO SCH (10:16)
[2021-11-04] MEDS: LISINOPRIL 20 MG TABLET PO SCH (10:16)
[2021-11-04] MEDS: POLYETHYLENE GLYCOL (HEALTHYLAX) 3350 17 GM PACKET PO PRN (10:17)
[2021-11-04] MEDS ORDERED: POLYETHYLENE GLYCOL (HEALTHYLAX) 3350 17 GM PACKET PO ONE (18:52)
[2021-11-04] MEDS: ATORVASTATIN CA 80 MG TABLET (FP) PO SCH (21:37)
[2021-11-05] MEDS: DOCUSATE SODIUM 100 MG CAPSULE (FP) PO SCH ×2 (06:03→12:59)
[2021-11-05] MEDS: CELECOXIB 50 MG PO SCH (08:00)
[2021-11-05] MEDS: ACETAMINOPHEN 325 MG TABLET (FP) PO PRN (08:28)
[2021-11-05] MEDS: POLYETHYLENE GLYCOL (HEALTHYLAX) 3350 17 GM PACKET PO PRN (08:29)
[2021-11-05] MEDS: PANTOPRAZOLE 40 MG TABLET PO SCH (09:19)
[2021-11-05] MEDS: CALCIUM 500MG/VIT-D 200 UNITS COMBO TABLET (FP) PO SCH (09:19)
[2021-11-05] MEDS: MULTIVITAMINS (DAILY MVI) TABLET (FP) PO SCH (09:19)
[2021-11-05] MEDS: ENOXAPARIN NA (PORCINE) 40 MG/0.4 ML DISP.SYRIN SQ SCH (09:19)
[2021-11-05] MEDS: LISINOPRIL 20 MG TABLET PO SCH (09:19)
[2021-11-05] MEDS: TAMOXIFEN CITRATE 10 MG TABLET PO SCH (09:19)
[2021-11-05 09:40] LABS: HEMATOCRIT 26.1 % (32.4-45.2); MCH 33.6 pg (25.7-33.7); MCHC 34.5 g/dl (32.0-36.0); MEAN CELL VOLUME 97.6 fl (80-96); MEAN PLT VOLUME 7.7 fl (7.5-11.1); PLATELET COUNT 176 10^3/uL (134-434); RBC 2.67 M/mm3 (3.60-5.2); RDW 14.7 % (11.6-15.6); WHITE BLOOD COUNT 8.7 K/mm3 (4.0-10.0)
[2021-11-05 14:47] VITALS: BP 134/99; PULSE 93; TEMP 99
== END 2021-11-05 21:43 | DRG 482 ==
LOC: JER 20:01 → JERBED 20:53 → J6S 11-03 01:52
PROVIDERS: ADMIT Hospitalist; ATTEND Internal Medicine
PROC: 0QS604Z Reposition Right Upper Femur with Internal Fixation Device, Open Approach (ICD-10-PCS; principal; 2021-11-03 17:30)
DX: S72.141A Displaced intertrochanteric fracture of right femur, initial encounter for closed fracture (principal); I10 Essential (primary) hypertension; E78.5 Hyperlipidemia, unspecified; M19.90 Unspecified osteoarthritis, unspecified site; R26.9 Unspecified abnormalities of gait and mobility; M54.50 Low back pain, unspecified; M81.0 Age-related osteoporosis without current pathological fracture; W17.89XA Other fall from one level to another, initial encounter; Y92.89 Other specified places as the place of occurrence of the external cause; Y99.8 Other external cause status; Z86.73 Personal history of transient ischemic attack (TIA), and cerebral infarction without residual deficits; Z85.3 Personal history of malignant neoplasm of breast
CPT/HCPCS: 36415; 70450-TC; 71045-TC-FY; 72125-TC; 72170-TC-FY; 73502-TC-RT-FY; 73552-TC-RT-FY; 76000-TC-FY; 80048; 80053; 84484; 85025; 85027; 85610; 85730; 86850; 86900; 86901; 93005; 93010; 94760; 97116-GP; 97162-GP; 99285-25; C9803; U0003; U0005

== ENCOUNTER 2022-09-12 19:47 | Observation (INO) | payer MEDICARE, OTHER ==
[2022-09-12 20:46] LABS: HEMATOCRIT 40.3 % (32.4-45.2); HEMOGLOBIN 13.7 G/dL (10.7-15.3); MCH 32.5 pg (25.7-33.7); MEAN CELL VOLUME 95.4 fl (80-96); MEAN PLT VOLUME 7.7 fl (7.5-11.1); PLATELET COUNT 169.5 10^3/uL (134-434); RBC 4.22 10^6/uL (3.60-5.2); RDW 14.4 % (11.6-15.6)
[2022-09-12 20:50] LABS: ALBUMIN 3.8 g/dl (3.4-5.0); BILIRUBIN,TOTAL 0.8 mg/dl (0.2-1); CALCIUM 8.7 mg/dl (8.5-10); CREATININE 0.7 mg/dl (0.55-1.3); TOT PROT 6.8 g/dl (6.4-8.2)
[2022-09-12 21:13] LABS: EPITHELIAL CELLS FEW /hpf
[2022-09-12 23:31] VITALS: BMI 27.3
[2022-09-13] MEDS: SODIUM CHLORIDE 1,000 ML IV SCH (06:34)
[2022-09-13] MEDS: CALCIUM 500MG/VIT-D 200 UNITS COMBO TABLET (FP) PO SCH (09:22)
[2022-09-13] MEDS: LISINOPRIL 20 MG TABLET PO SCH (09:22)
[2022-09-13] MEDS ORDERED: PATIENT'S OWN MEDICATION (NON-FORMULARY) (Tamoxifen Citrate [Tamoxifen Citrate] 20 MG Tabl PO SCH (10:00)
[2022-09-13 10:36] LABS: ALBUMIN 3.5 g/dl (3.4-5.0); BILIRUBIN,TOTAL 0.7 mg/dl (0.2-1); CALCIUM 8.5 mg/dl (8.5-10); CREATININE 0.6 mg/dl (0.55-1.3); MAGNESIUM 1.8 mg/dL (1.8-2.4)
[2022-09-13 10:59] LABS: BASO % 0.5 % (0-2.0); HEMOGLOBIN 13.4 GM/dL (10.7-15.3); MCH 32.9 pg (25.7-33.7); MCHC 34.3 g/dl (32.0-36.0); MEAN CELL VOLUME 95.9 fl (80-96); MEAN PLT VOLUME 7.8 fl (7.5-11.1); MONO % 6.3 % (3.8-10.2); NEUT % 64.2 % (42.8-82.8); PLATELET COUNT 184 10^3/uL (134-434); RBC 4.07 M/mm3 (3.60-5.2); RDW 14.4 % (11.6-15.6); WHITE BLOOD COUNT 5.4 K/mm3 (4.0-10.0)
[2022-09-13] MEDS: TAMOXIFEN CITRATE 10 MG TABLET PO SCH (11:02)
[2022-09-13] MEDS: amLODIPine BESYLATE 5 MG TABLET (FP) PO SCH (12:29)
[2022-09-13] MEDS: ATORVASTATIN CA 80 MG TABLET (FP) PO SCH (21:19)
[2022-09-13] MEDS: PANTOPRAZOLE 40 MG TABLET PO SCH (21:19)
[2022-09-14] MEDS: SODIUM CHLORIDE 1,000 ML IV SCH (08:15)
[2022-09-14 08:29] LABS: ALBUMIN 2.3 g/dl (3.4-5.0); BILIRUBIN,TOTAL 0.6 mg/dl (0.2-1); CALCIUM 6.2 mg/dl (8.5-10); CREATININE 0.4 mg/dl (0.55-1.3); MAGNESIUM 1.3 mg/dL (1.8-2.4); PHOSPHOROUS 2.4 mg/dl (2.5-4.9); TOT PROT 4.3 g/dl (6.4-8.2)
[2022-09-14] MEDS: LISINOPRIL 20 MG TABLET PO SCH (09:28)
[2022-09-14] MEDS: TAMOXIFEN CITRATE 10 MG TABLET PO SCH (09:32)
[2022-09-14] MEDS: CALCIUM 500MG/VIT-D 200 UNITS COMBO TABLET (FP) PO SCH (09:32)
[2022-09-14] MEDS: amLODIPine BESYLATE 5 MG TABLET (FP) PO SCH (09:33)
[2022-09-14] MEDS: ENOXAPARIN NA (PORCINE) 40 MG/0.4 ML DISP.SYRIN SQ SCH (09:33)
[2022-09-14 10:08] LABS: BASO % 0.4 % (0-2.0); EOS % 1.8 % (0-4.5); HEMATOCRIT 31.7 % (32.4-45.2); HEMOGLOBIN 10.5 GM/dL (10.7-15.3); LYMPH % 26.8 % (8-40); MCH 32.5 pg (25.7-33.7); MCHC 33.3 g/dl (32.0-36.0); MEAN CELL VOLUME 97.8 fl (80-96); PLATELET COUNT 151 10^3/uL (134-434); RBC 3.24 M/mm3 (3.60-5.2); RDW 14.6 % (11.6-15.6); WHITE BLOOD COUNT 4.9 K/mm3 (4.0-10.0)
[2022-09-14 11:10] LABS: ALBUMIN 3.5 g/dl (3.4-5.0); BILIRUBIN,TOTAL 0.7 mg/dl (0.2-1); CALCIUM 8.3 mg/dl (8.5-10); CREATININE 0.6 mg/dl (0.55-1.3); MAGNESIUM 1.7 mg/dL (1.8-2.4); TOT PROT 6.3 g/dl (6.4-8.2)
[2022-09-14] MEDS ORDERED: MAGNESIUM OXIDE 400 MG TABLET (FP) PO ONE (15:00)
[2022-09-14 19:57] VITALS: RESP 17
[2022-09-14] MEDS: ATORVASTATIN CA 80 MG TABLET (FP) PO SCH (21:07)
[2022-09-14] MEDS: PANTOPRAZOLE 40 MG TABLET PO SCH (21:07)
[2022-09-15 05:59] VITALS: BP 129/58; PULSE 62; TEMP 9.9
[2022-09-15 08:56] LABS: ALBUMIN 3.2 g/dl (3.4-5.0); BILIRUBIN,TOTAL 0.8 mg/dl (0.2-1); CALCIUM 8.2 mg/dl (8.5-10); CREATININE 0.5 mg/dl (0.55-1.3); TOT PROT 5.8 g/dl (6.4-8.2)
[2022-09-15] MEDS: ENOXAPARIN NA (PORCINE) 40 MG/0.4 ML DISP.SYRIN SQ SCH (09:32)
[2022-09-15] MEDS: SODIUM CHLORIDE 1,000 ML IV SCH (09:32)
[2022-09-15] MEDS: amLODIPine BESYLATE 5 MG TABLET (FP) PO SCH (09:33)
[2022-09-15] MEDS: LISINOPRIL 20 MG TABLET PO SCH (09:33)
[2022-09-15] MEDS: CALCIUM 500MG/VIT-D 200 UNITS COMBO TABLET (FP) PO SCH (09:33)
[2022-09-15] MEDS: TAMOXIFEN CITRATE 10 MG TABLET PO SCH (10:04)
[2022-09-15 10:18] LABS: BASO % 0.8 % (0-2.0); EOS % 2.6 % (0-4.5); HEMATOCRIT 38.7 % (32.4-45.2); HEMOGLOBIN 12.9 GM/dL (10.7-15.3); LYMPH % 29.3 % (8-40); MCH 32.3 pg (25.7-33.7); MCHC 33.3 g/dl (32.0-36.0); MEAN PLT VOLUME 7.9 fl (7.5-11.1); MONO % 7.7 % (3.8-10.2); NEUT % 59.6 % (42.8-82.8); PLATELET COUNT 184 10^3/uL (134-434); RDW 14.4 % (11.6-15.6); WHITE BLOOD COUNT 5.4 K/mm3 (4.0-10.0)
== END 2022-09-15 12:26 | disposition home or self-care (01) ==
LOC: FER 19:47 → FM/S 21:46 → INTOOBSV 21:46 → FM/S 22:26
PROVIDERS: ADMIT Internal Medicine
PROC: 3E023GC Introduction of Other Therapeutic Substance into Muscle, Percutaneous Approach (ICD-10-PCS; principal; 2022-09-12)
PROC: 3E0337Z Introduction of Electrolytic and Water Balance Substance into Peripheral Vein, Percutaneous Approach (ICD-10-PCS; 2022-09-12)
DX: R41.82 Altered mental status, unspecified (principal); I13.10 Hypertensive heart and chronic kidney disease without heart failure, with stage 1 through stage 4 chronic kidney disease, or unspecified chronic kidney disease; R56.9 Unspecified convulsions; R77.8 Other specified abnormalities of plasma proteins; N12 Tubulo-interstitial nephritis, not specified as acute or chronic; R55 Syncope and collapse; M19.90 Unspecified osteoarthritis, unspecified site; I63.9 Cerebral infarction, unspecified; R07.81 Pleurodynia; K29.00 Acute gastritis without bleeding; N85.2 Hypertrophy of uterus; K52.9 Noninfective gastroenteritis and colitis, unspecified; Z85.3 Personal history of malignant neoplasm of breast; E87.1 Hypo-osmolality and hyponatremia; R11.0 Nausea; R53.1 Weakness; N18.9 Chronic kidney disease, unspecified; J20.9 Acute bronchitis, unspecified; Z91.013 Allergy to seafood
CPT/HCPCS: 0241U-QW; 36415; 70450-TC; 70551-TC; 71045-TC-FY; 80053; 80061; 81003; 81015; 82550; 83036; 83735; 84100; 84443; 84484; 85025; 85027; 87086; 93005; 93306-TC; 93880-TC; 97116-GP; 97161-GP; 99285-25; G0378

== ENCOUNTER 2022-10-13 12:56 | Inpatient (IN) | payer MEDICARE, OTHER ==
[2022-10-13] MEDS ORDERED: LACTATED RINGERS SOLUTION 1000 ML INFUS.BAG IV ONE (14:30)
[2022-10-13 15:23] LABS: BASO % 0.8 % (0-2.0); EOS % 0.5 % (0-4.5); HEMATOCRIT 40.6 % (32.4-45.2); HEMOGLOBIN 13.7 GM/dL (10.7-15.3); LYMPH % 13.6 % (8-40); MCH 32.2 pg (25.7-33.7); MCHC 33.7 g/dl (32.0-36.0); MEAN CELL VOLUME 95.5 fl (80-96); MEAN PLT VOLUME 7.4 fl (7.5-11.1); MONO % 5.1 % (3.8-10.2); PLATELET COUNT 211 10^3/uL (134-434); RBC 4.25 M/mm3 (3.60-5.2); RDW 14.1 % (11.6-15.6)
[2022-10-13] MEDS ORDERED: MECLIZINE HCL 25 MG TABLET (FP) PO ONE (15:41)
[2022-10-13] MEDS ORDERED: MECLIZINE HCL 25 MG TABLET (FP) ONE (15:44)
[2022-10-13 15:55] LABS: ALBUMIN 3.8 g/dl (3.4-5.0); BLOOD UREA NITROGEN 15.3 mg/dL (7-18); CALCIUM 8.8 mg/dL (8.5-10.1); MAGNESIUM 1.9 mg/dL (1.8-2.4)
[2022-10-13 15:59] LABS: CREATININE 0.5 mg/dL (0.55-1.3)
[2022-10-13 16:00] LABS: BILIRUBIN,TOTAL 0.6 mg/dL (0.2-1); TOT PROT 6.9 g/dl (6.4-8.2)
[2022-10-13] MEDS ORDERED: SODIUM CHLORIDE 1 GM TABLET PO ONE (17:50)
[2022-10-13] MEDS ORDERED: DEXTROSE 5%-NORMAL SALINE 1,000 ML IV SCH (20:45)
[2022-10-14 08:34] LABS: BASO % 0.6 % (0-2.0); EOS % 2.5 % (0-4.5); HEMATOCRIT 36.2 % (32.4-45.2); HEMOGLOBIN 12.8 GM/dL (10.7-15.3); LYMPH % 26.9 % (8-40); MCH 33.8 pg (25.7-33.7); MCHC 35.4 g/dl (32.0-36.0); MEAN CELL VOLUME 95.3 fl (80-96); MEAN PLT VOLUME 7.2 fl (7.5-11.1); MONO % 9.4 % (3.8-10.2); NEUT % 60.6 % (42.8-82.8); PLATELET COUNT 175 10^3/uL (134-434); RDW 13.9 % (11.6-15.6); WHITE BLOOD COUNT 5.5 K/mm3 (4.0-10.0)
[2022-10-14 08:45] LABS: BLOOD UREA NITROGEN 11.5 mg/dL (7-18); CALCIUM 8.1 mg/dL (8.5-10.1)
[2022-10-14 08:49] LABS: CREATININE 0.5 mg/dL (0.55-1.3)
[2022-10-14 10:09] LABS: EPI CELLS 21 /uL (0-25.1); HYALINE CASTS 0 /uL (0-3.1); URINE APPEARANCE CLEAR; URINE BACTERIA 39 /uL (0-1359); URINE BILIRUBIN NEGATIVE (NEGATIVE); URINE COLOR YELLOW; URINE GLUCOSE (UA) NEGATIVE (NEGATIVE); URINE KETONE NEGATIVE (NEGATIVE); URINE LEUK ESTERASE NEGATIVE (NEGATIVE); URINE NITRITE NEGATIVE (NEGATIVE); URINE PROTEIN NEGATIVE (NEGATIVE); URINE RBC 37 /uL (0-23.9); URINE WBC 10 /uL (0-25.8)
[2022-10-14] MEDS ORDERED: DEXTROSE 5%-0.45% SALINE 995 ML with POTASSIUM CHLORIDE 10 MEQ IV SCH (14:45)
[2022-10-14 14:48] LABS: N-TERMINAL BNP 816.3 pg/ml (5-450)
[2022-10-14] MEDS ORDERED: D5-1/2NS+10 MEQ KCL - 10 MEQ/1,000 ML INFUS.BAG IV SCH (15:20)
[2022-10-14] MEDS: ASPIRIN COATED 81 MG TABLET.EC PO SCH (17:34)
[2022-10-14] MEDS: LISINOPRIL 20 MG TABLET PO SCH (17:34)
[2022-10-14] MEDS: PARoxetine HCL 20 MG TABLET PO SCH (17:34)
[2022-10-14] MEDS: TAMOXIFEN CITRATE 10 MG TABLET PO SCH (18:00)
[2022-10-14] MEDS: ATORVASTATIN CA 80 MG TABLET (FP) PO SCH (21:28)
[2022-10-15 08:43] LABS: CALCIUM 7.8 mg/dL (8.5-10.1)
[2022-10-15 08:44] LABS: BLOOD UREA NITROGEN 15.6 mg/dL (7-18)
[2022-10-15 08:47] LABS: CREATININE 0.5 mg/dL (0.55-1.3)
[2022-10-15] MEDS: ASPIRIN COATED 81 MG TABLET.EC PO SCH (10:23)
[2022-10-15] MEDS: PARoxetine HCL 20 MG TABLET PO SCH (10:23)
[2022-10-15] MEDS: TAMOXIFEN CITRATE 10 MG TABLET PO SCH (10:23)
[2022-10-15] MEDS: LISINOPRIL 20 MG TABLET PO SCH (10:23)
[2022-10-15 18:54] VITALS: RESP 18
[2022-10-15] MEDS: ATORVASTATIN CA 80 MG TABLET (FP) PO SCH (21:51)
[2022-10-16 07:53] LABS: CALCIUM 8.3 mg/dL (8.5-10.1)
[2022-10-16 07:54] LABS: BLOOD UREA NITROGEN 15.8 mg/dL (7-18)
[2022-10-16 07:57] LABS: CREATININE 0.5 mg/dL (0.55-1.3); URIC ACID 2.1 mg/dL (2.6-7.2)
[2022-10-16 11:01] VITALS: BP 140/68; PULSE 63; TEMP 98.9
[2022-10-16] MEDS: ASPIRIN COATED 81 MG TABLET.EC PO SCH (11:03)
[2022-10-16] MEDS: PARoxetine HCL 20 MG TABLET PO SCH (11:03)
[2022-10-16] MEDS: TAMOXIFEN CITRATE 10 MG TABLET PO SCH (11:03)
[2022-10-16] MEDS: LISINOPRIL 20 MG TABLET PO SCH (11:03)
[2022-10-16 14:11] VITALS: BMI 19.7
== END 2022-10-16 14:34 | disposition home or self-care (01) | DRG 641 ==
LOC: JER 12:56 → JERBED 19:18 → J4W 21:31 → OBSVTOIN 10-15 15:05
PROVIDERS: ADMIT Internal Medicine; ATTEND Internal Medicine
DX: E87.1 Hypo-osmolality and hyponatremia (principal); Z68.1 Body mass index [BMI] 19.9 or less, adult; I10 Essential (primary) hypertension; E78.5 Hyperlipidemia, unspecified; E86.0 Dehydration; R19.7 Diarrhea, unspecified; R63.0 Anorexia; M81.0 Age-related osteoporosis without current pathological fracture
CPT/HCPCS: 0241U-QW; 36415; 70450-TC; 71045-TC-FY; 80048; 80053; 81003; 82436; 82533; 82550; 83735; 83880; 83930; 83935; 84133; 84300; 84443; 84484; 84550; 85025; 87086; 93005; 93010; 97116-GP; 97162-GP; 99285-25; G0378

== ENCOUNTER 2022-11-12 18:46 | Observation (INO) | payer MEDICARE, OTHER ==
[2022-11-12 21:41] LABS: BASO % 0.6 % (0-2.0); HEMATOCRIT 38.7 % (32.4-45.2); HEMOGLOBIN 13.2 GM/dL (10.7-15.3); MCH 32.6 pg (25.7-33.7); MCHC 34.1 g/dl (32.0-36.0); MEAN CELL VOLUME 95.6 fl (80-96); MEAN PLT VOLUME 7.9 fl (7.5-11.1); MONO % 8.8 % (3.8-10.2); NEUT % 57.6 % (42.8-82.8); PLATELET COUNT 210 10^3/uL (134-434); RBC 4.04 M/mm3 (3.60-5.2); RDW 14.5 % (11.6-15.6); WHITE BLOOD COUNT 6.2 K/mm3 (4.0-10.0)
[2022-11-12] MEDS ORDERED: FAMOTIDINE 20 MG/50 ML IVPB 20 MG/50 ML MG IVPB ONE ×2 (21:48→21:55)
[2022-11-12] MEDS ORDERED: SUCRALFATE 1 GM TABLET (FP) PO ONE (21:48)
[2022-11-12] MEDS ORDERED: MAG HYDROX/AL HYDROX/SIMETH 30 ML UNIT-DOSE CUP PO ONE (21:48)
[2022-11-12 21:51] LABS: EPI CELLS 4 /uL (0-25.1); HYALINE CASTS 0 /uL (0-3.1); URINE APPEARANCE CLEAR; URINE BACTERIA 8 /uL (0-1359); URINE BILIRUBIN NEGATIVE (NEGATIVE); URINE COLOR YELLOW; URINE GLUCOSE (UA) NEGATIVE (NEGATIVE); URINE KETONE NEGATIVE (NEGATIVE); URINE LEUK ESTERASE NEGATIVE (NEGATIVE); URINE NITRITE NEGATIVE (NEGATIVE); URINE PROTEIN NEGATIVE (NEGATIVE); URINE RBC 22 /uL (0-23.9); URINE UROBILINOGEN 0.2 mg/dL (0.2-1.0); URINE WBC 1 /uL (0-25.8)
[2022-11-12 21:52] LABS: CALCIUM 8.4 mg/dL (8.5-10.1)
[2022-11-12 21:53] LABS: ALBUMIN 3.5 g/dl (3.4-5.0); BLOOD UREA NITROGEN 12.6 mg/dL (7-18)
[2022-11-12] MEDS ORDERED: MAG HYDROX/AL HYDROX/SIMETH 30 ML UNIT-DOSE CUP ONE (21:54)
[2022-11-12] MEDS ORDERED: SUCRALFATE 1 GM TABLET (FP) ONE (21:54)
[2022-11-12 21:56] LABS: CREATININE 0.5 mg/dL (0.55-1.3)
[2022-11-12] MEDS ORDERED: SODIUM CHLORIDE 0.9% 500 ML INFUS.BAG IV ONE (21:56)
[2022-11-12 21:57] LABS: BILIRUBIN,TOTAL 0.6 mg/dL (0.2-1); TOT PROT 6.7 g/dl (6.4-8.2)
[2022-11-13] MEDS ORDERED: ACETAMINOPHEN 1000 MG/100 ML BAG IVPB PRN (01:08)
[2022-11-13 04:01] LABS: BASO % 0.7 % (0-2.0); EOS % 1.1 % (0-4.5); HEMOGLOBIN 13.6 GM/dL (10.7-15.3); LYMPH % 29.4 % (8-40); MCH 32.2 pg (25.7-33.7); MCHC 34.2 g/dl (32.0-36.0); MEAN CELL VOLUME 94.3 fl (80-96); MONO % 8.4 % (3.8-10.2); NEUT % 60.4 % (42.8-82.8); PLATELET COUNT 202 10^3/uL (134-434); RBC 4.24 M/mm3 (3.60-5.2); RDW 14.2 % (11.6-15.6)
[2022-11-13 04:08] LABS: INR 1.06 (0.83-1.09); PROTHROMBIN TIME (PATIENT) 12.3 SEC (9.7-13.0)
[2022-11-13 04:22] LABS: CALCIUM 8.2 mg/dL (8.5-10.1)
[2022-11-13 04:23] LABS: BLOOD UREA NITROGEN 10.2 mg/dL (7-18)
[2022-11-13 04:26] LABS: CREATININE 0.5 mg/dL (0.55-1.3); PHOSPHOROUS 2.9 mg/dL (2.5-4.9)
[2022-11-13] MEDS: amLODIPine BESYLATE 5 MG TABLET (FP) PO SCH (10:48)
[2022-11-13] MEDS: PARoxetine HCL 20 MG TABLET PO SCH (10:48)
[2022-11-13] MEDS: CALCIUM 500MG/VIT-D 200 UNITS COMBO TABLET (FP) PO SCH (10:48)
[2022-11-13] MEDS: LISINOPRIL 20 MG TABLET PO SCH (10:48)
[2022-11-13] MEDS: ASPIRIN COATED 81 MG TABLET.EC PO SCH (10:49)
[2022-11-13] MEDS: KCL 10 MEQ IVPB 10 MEQ/100 ML INFUS.BAG IVPB SCH (19:51)
[2022-11-13] MEDS ORDERED: ATORVASTATIN CA 80 MG TABLET (FP) PO SCH (22:00)
[2022-11-13] MEDS ORDERED: PANTOPRAZOLE 40 MG TABLET PO SCH (22:00)
[2022-11-14 08:39] VITALS: TEMP 97.9
[2022-11-14 08:51] LABS: BLOOD UREA NITROGEN 8.6 mg/dL (7-18)
[2022-11-14 08:53] LABS: CALCIUM 8.2 mg/dL (8.5-10.1)
[2022-11-14 08:55] LABS: CREATININE 0.5 mg/dL (0.55-1.3)
[2022-11-14] MEDS: PARoxetine HCL 20 MG TABLET PO SCH (10:41)
[2022-11-14] MEDS: LISINOPRIL 20 MG TABLET PO SCH (10:41)
[2022-11-14] MEDS: CALCIUM 500MG/VIT-D 200 UNITS COMBO TABLET (FP) PO SCH (10:41)
[2022-11-14] MEDS: ASPIRIN COATED 81 MG TABLET.EC PO SCH (10:41)
[2022-11-14] MEDS: amLODIPine BESYLATE 5 MG TABLET (FP) PO SCH (10:41)
[2022-11-14 10:43] VITALS: BMI 17.7
[2022-11-14 14:01] VITALS: BP 138/78; PULSE 68; RESP 20
== END 2022-11-14 14:01 | disposition home or self-care (01) ==
LOC: JER 18:46 → JERBED 22:23 → J7W 11-13 08:45
PROVIDERS: ADMIT Internal Medicine; ATTEND Internal Medicine
PROC: 3E033GC Introduction of Other Therapeutic Substance into Peripheral Vein, Percutaneous Approach (ICD-10-PCS; principal; 2022-11-12)
PROC: 3E0337Z Introduction of Electrolytic and Water Balance Substance into Peripheral Vein, Percutaneous Approach (ICD-10-PCS; 2022-11-12)
DX: K21.9 Gastro-esophageal reflux disease without esophagitis (principal); K59.09 Other constipation; R13.10 Dysphagia, unspecified; E87.1 Hypo-osmolality and hyponatremia
CPT/HCPCS: 36415; 74177-TC; 80048; 80053; 81003; 83605; 83735; 84100; 85025; 85610; 85730; 87086; 93005; 93010; 96365; 99285-25; C9803-CS; G0378; Q9967; U0003; U0005

== ENCOUNTER 2023-04-26 04:14 | Day surgery (SDC) | payer MEDICARE, OTHER ==
[2023-04-25 08:29] VITALS: BMI 19.8
[2023-04-26] MEDS ORDERED: ACETAMINOPHEN 500 MG TABLET (FP) PO PRN (13:04)
[2023-04-26 13:21] VITALS: RESP 18
[2023-04-26] MEDS ORDERED: LIDOCAINE HCL 1% PRESERVATIVE FREE - 30ML VIAL IJ ONE (14:13)
[2023-04-26] MEDS ORDERED: BUPIVACAINE HCL/PF 0.75% 10 ML VIAL NR ONE (14:17)
[2023-04-26 15:09] VITALS: BP 160/72; PULSE 74; TEMP 97.5
== END 2023-04-26 15:20 | disposition home or self-care (01) ==
LOC: JASU-SURG 04:14
PROVIDERS: ATTEND Pain Medicine Pain Medicine
PROC: 3E0T33Z Introduction of Anti-inflammatory into Peripheral Nerves and Plexi, Percutaneous Approach (ICD-10-PCS; 2023-04-26)
PROC: 3E0T3BZ Introduction of Anesthetic Agent into Peripheral Nerves and Plexi, Percutaneous Approach (ICD-10-PCS; principal; 2023-04-26 14:45)
DX: M47.816 Spondylosis without myelopathy or radiculopathy, lumbar region (principal)
CPT/HCPCS: 76000-TC-FY

== ENCOUNTER 2023-09-08 16:29 | Emergency (ER) | payer MEDICARE, OTHER ==
[2023-09-08] MEDS ORDERED: FUROSEMIDE 40 MG/4 ML INJECTABLE VIAL IVPUSH ONE (17:07)
[2023-09-08] MEDS: ALBUTEROL SO4 2.5/IPRATROPIUM 0.5 INH SOL 3 ML VIAL.NEB. NEB SCH ×2 (17:15→17:30)
[2023-09-08] MEDS ORDERED: FUROSEMIDE 40 MG/4 ML INJECTABLE VIAL ONE (17:28)
[2023-09-08] MEDS ORDERED: ALBUTEROL SO4 2.5/IPRATROPIUM 0.5 INH SOL 3 ML VIAL.NEB. NEB ONE (17:28)
[2023-09-08 17:32] LABS: INR 1.05 (0.83-1.09); PROTHROMBIN TIME (PATIENT) 12.2 SEC (9.7-13.0)
[2023-09-08 17:35] LABS: HEMATOCRIT 40.3 % (32.4-45.2); HEMOGLOBIN 13.5 G/dL (10.7-15.3); MCH 32.2 pg (25.7-33.7); MCHC 33.4 g/dl (32.0-36.0); MEAN CELL VOLUME 96.5 fl (80-96); MEAN PLT VOLUME 8.2 fl (7.5-11.1); PLATELET COUNT 187.2 10^3/uL (134-434); RBC 4.18 10^6/uL (3.60-5.2); RDW 15.3 % (11.6-15.6); WHITE BLOOD COUNT 7.2 10^3/uL (4.0-10.8)
[2023-09-08 17:36] LABS: PLATELET ESTIMATE ADEQUATE
[2023-09-08 17:46] LABS: ALBUMIN 4.2 g/dl (3.4-5.0); BILIRUBIN,TOTAL 0.4 mg/dl (0.2-1); CALCIUM 9.1 mg/dl (8.5-10.1); CREATININE 0.8 mg/dl (0.6-1.3); POTASSIUM 3.9 mmol/L (3.5-5.1); TOT PROT 6.9 g/dl (6.4-8.2)
[2023-09-08 17:50] VITALS: BMI 18.1
[2023-09-08 18:42] LABS: VENOUS O2 SATURATION 82.4 % (70-80); VENOUS PCO2 46.8 mmHg (38-52); VENOUS PH 7.392 (7.310-7.410)
[2023-09-08 18:56] LABS: N-TERMINAL BNP 8891.9 pg/ml (5-450)
[2023-09-08] MEDS ORDERED: DOPAMINE 400 MG/D5W - 400,000 MCG/250 ML INFUS.BAG IVPB SCH (19:00)
[2023-09-08 20:27] VITALS: BP 165/43; PULSE 53; RESP 18; TEMP 98.8
== END 2023-09-08 20:40 | disposition short-term general hospital (02) ==
LOC: FER 16:29
PROC: 3E033GC Introduction of Other Therapeutic Substance into Peripheral Vein, Percutaneous Approach (ICD-10-PCS; principal; 2023-09-08)
PROC: 3E0F7GC Introduction of Other Therapeutic Substance into Respiratory Tract, Via Natural or Artificial Opening (ICD-10-PCS; 2023-09-08)
DX: R06.02 Shortness of breath (principal); R22.31 Localized swelling, mass and lump, right upper limb; R00.1 Bradycardia, unspecified; I44.2 Atrioventricular block, complete; I50.9 Heart failure, unspecified; Z20.822 Contact with and (suspected) exposure to COVID-19
CPT/HCPCS: 0241U-QW; 36415; 71045-TC-FY; 80053; 82803; 83880; 84484; 85027; 85610; 85730; 93005; 94640; 96374; 99285-25

== ENCOUNTER 2023-11-14 21:27 | Observation (INO) | payer MEDICARE, OTHER ==
[2023-11-14 22:17] LABS: BASO % 0.5 % (0-2.0); EOS % 1.6 % (0-4.5); HEMATOCRIT 36.3 % (32.4-45.2); HEMOGLOBIN 12.1 GM/dL (10.7-15.3); LYMPH % 20.9 % (8-40); MCH 31.2 pg (25.7-33.7); MCHC 33.4 g/dl (32.0-36.0); MEAN CELL VOLUME 93.3 fl (80-96); MEAN PLT VOLUME 7.5 fl (7.5-11.1); MONO % 5.1 % (3.8-10.2); NEUT % 71.9 % (42.8-82.8); PLATELET COUNT 284 10^3/uL (134-434); RBC 3.89 M/mm3 (3.60-5.2); WHITE BLOOD COUNT 6.9 K/mm3 (4.0-10.0)
[2023-11-14 22:26] LABS: INR 1.35 (0.83-1.09); PROTHROMBIN TIME (PATIENT) 15.6 SEC (9.7-13.0)
[2023-11-14 22:38] LABS: CHLORIDE 105 mmol/L (98-107); POTASSIUM 3.9 mmol/L (3.5-5.1); SODIUM 140 mmol/L (136-145)
[2023-11-14 22:40] LABS: CALCIUM 8.9 mg/dL (8.5-10.1)
[2023-11-14] MEDS ORDERED: ACETAMINOPHEN INJECTION 100 ML IVPB ONE (22:40)
[2023-11-14 22:41] LABS: ALBUMIN 3.2 g/dl (3.4-5.0); ANION GAP 8 mmol/L (4-13); BLOOD UREA NITROGEN 18.4 mg/dL (7-18); CO2 27 mmol/L (21-32); GLUCOSE,RANDOM 158 mg/dL (74-106); MAGNESIUM 1.8 mg/dL (1.8-2.4)
[2023-11-14 22:44] LABS: CREATININE 0.7 mg/dL (0.55-1.3); SGOT/AST 22 U/L (15-37); SGPT/ALT 20 U/L (13-61)
[2023-11-14 22:45] LABS: BILIRUBIN,TOTAL 0.3 mg/dL (0.2-1)
[2023-11-14 22:47] LABS: ALK PHOS 45 U/L (45-117)
[2023-11-14 22:49] LABS: N-TERMINAL BNP 18913.5 pg/ml (5-450)
[2023-11-14] MEDS: ACETAMINOPHEN 1000 MG/100 ML BAG IVPB ONE (22:50)
[2023-11-14] MEDS ORDERED: ALBUTEROL SO4 2.5/IPRATROPIUM 0.5 INH SOL 3 ML VIAL.NEB. NEB ONE (22:57)
[2023-11-14] MEDS: ALBUTEROL SO4 2.5/IPRATROPIUM 0.5 INH SOL 3 ML VIAL.NEB. NEB ONE (22:58)
[2023-11-14] MEDS: SODIUM CHLORIDE 0.9% 500 ML INFUS.BAG IV ONE (23:44)
[2023-11-15 02:32] LABS: EPI CELLS 5 /uL (0-25.1); HYALINE CASTS 0 /uL (0-3.1); PH,URINE 7.5 (5.0-8.0); URINE APPEARANCE CLEAR; URINE BACTERIA 16 /uL (0-1359); URINE BILIRUBIN NEGATIVE (NEGATIVE); URINE COLOR YELLOW; URINE GLUCOSE (UA) NEGATIVE (NEGATIVE); URINE KETONE NEGATIVE (NEGATIVE); URINE LEUK ESTERASE NEGATIVE (NEGATIVE); URINE NITRITE NEGATIVE (NEGATIVE); URINE PROTEIN NEGATIVE (NEGATIVE); URINE RBC 18 /uL (0-23.9); URINE UROBILINOGEN 0.2 mg/dL (0.2-1.0); URINE WBC 2 /uL (0-25.8)
[2023-11-15] MEDS: FUROSEMIDE 40 MG/4 ML INJECTABLE VIAL IVPUSH ONE (05:00)
[2023-11-15 07:55] LABS: BASO % 1.2 % (0-2.0); EOS % 1.2 % (0-4.5); HEMATOCRIT 37.2 % (32.4-45.2); MCH 30.1 pg (25.7-33.7); MCHC 32.3 g/dl (32.0-36.0); MEAN PLT VOLUME 7.8 fl (7.5-11.1); MONO % 6.9 % (3.8-10.2); NEUT % 61.7 % (42.8-82.8); PLATELET COUNT 271 10^3/uL (134-434); RDW 14.9 % (11.6-15.6); WHITE BLOOD COUNT 6.3 K/mm3 (4.0-10.0)
[2023-11-15 08:09] LABS: POTASSIUM 3.6 mmol/L (3.5-5.1)
[2023-11-15 08:11] LABS: ALBUMIN 3.3 g/dl (3.4-5.0); CALCIUM 8.6 mg/dL (8.5-10.1)
[2023-11-15 08:12] LABS: BLOOD UREA NITROGEN 13.7 mg/dL (7-18); MAGNESIUM 1.9 mg/dL (1.8-2.4)
[2023-11-15 08:14] LABS: CREATININE 0.7 mg/dL (0.55-1.3); PHOSPHOROUS 3.9 mg/dL (2.5-4.9)
[2023-11-15 08:16] LABS: BILIRUBIN,TOTAL 0.4 mg/dL (0.2-1); TOT PROT 6.9 g/dl (6.4-8.2)
[2023-11-15] MEDS: LOSARTAN POTASSIUM 25 MG TABLET PO SCH (09:03)
[2023-11-15] MEDS: APIXABAN 2.5 MG TABLET PO SCH (09:03)
[2023-11-15] MEDS: TAMOXIFEN CITRATE 10 MG TABLET PO SCH (09:04)
[2023-11-15] MEDS ORDERED: LOSARTAN POTASSIUM 25 MG TABLET ONE (14:40)
[2023-11-15] MEDS: LOSARTAN POTASSIUM 25 MG TABLET PO ONE (14:41)
[2023-11-15] MEDS: FLUTICASONE PROP 0.05% 16 GM NASAL SPRAY NS SCH (15:38)
[2023-11-15] MEDS: metoPROLOL SUCCINATE 25 MG TAB.SR.24H (FP) PO SCH (17:24)
[2023-11-15] MEDS: SPIRONOLACTONE 25 MG TABLET PO SCH (17:24)
[2023-11-15] MEDS: FUROSEMIDE 40 MG/4 ML INJECTABLE VIAL IVPB ONE (17:24)
[2023-11-15 18:38] VITALS: BMI 18.9
[2023-11-15] MEDS: SENNOSIDES 8.6MG TABLET (FP) PO SCH (21:33)
[2023-11-15] MEDS: ATORVASTATIN CA 20 MG TABLET (FP) PO SCH (21:33)
[2023-11-15] MEDS: PANTOPRAZOLE 40 MG TABLET PO SCH (21:33)
[2023-11-15] MEDS: PARoxetine HCL 10 MG TABLET PO SCH (21:33)
[2023-11-15] MEDS ORDERED: PARoxetine HCL 10 MG TABLET PO SCH (22:00)
[2023-11-16 08:21] LABS: BASO % 0.6 % (0-2.0); EOS % 2.6 % (0-4.5); HEMATOCRIT 35.4 % (32.4-45.2); HEMOGLOBIN 11.6 GM/dL (10.7-15.3); LYMPH % 16.3 % (8-40); MCH 30.4 pg (25.7-33.7); MCHC 32.8 g/dl (32.0-36.0); MEAN CELL VOLUME 92.6 fl (80-96); MEAN PLT VOLUME 7.9 fl (7.5-11.1); MONO % 6.6 % (3.8-10.2); NEUT % 73.9 % (42.8-82.8); PLATELET COUNT 261 10^3/uL (134-434); RBC 3.83 M/mm3 (3.60-5.2); RDW 15.1 % (11.6-15.6); WHITE BLOOD COUNT 6.2 K/mm3 (4.0-10.0)
[2023-11-16 08:52] LABS: POTASSIUM 3.5 mmol/L (3.5-5.1)
[2023-11-16 09:02] LABS: CALCIUM 8.6 mg/dL (8.5-10.1)
[2023-11-16 09:04] LABS: ALBUMIN 2.9 g/dl (3.4-5.0)
[2023-11-16 09:05] LABS: BLOOD UREA NITROGEN 20.3 mg/dL (7-18)
[2023-11-16 09:08] LABS: BILIRUBIN,TOTAL 0.5 mg/dL (0.2-1); CREATININE 0.8 mg/dL (0.55-1.3); TOT PROT 6.2 g/dl (6.4-8.2)
[2023-11-16] MEDS: EMPAGLIFLOZIN (JARDIANCE) 10 MG TABLET PO SCH (09:59)
[2023-11-16] MEDS ORDERED: LOSARTAN POTASSIUM 50 MG TABLET PO SCH (10:00)
[2023-11-16] MEDS: FUROSEMIDE 40 MG/4 ML INJECTABLE VIAL IVPUSH SCH (16:29)
[2023-11-16] MEDS: SACUBITRIL/VALSARTAN 24 MG-26 MG TABLET PO SCH (22:20)
[2023-11-17] MEDS: EMPAGLIFLOZIN (JARDIANCE) 10 MG TABLET PO SCH (06:34)
[2023-11-17] MEDS: metoPROLOL SUCCINATE 25 MG TAB.SR.24H (FP) PO SCH (18:25)
[2023-11-18] MEDS: FUROSEMIDE 40 MG TABLET (FP) PO SCH (14:05)
[2023-11-19 15:42] VITALS: RESP 18
[2023-11-21 13:59] VITALS: BP 112/54; PULSE 65; TEMP 97.6
== END 2023-11-21 16:14 | disposition short-term general hospital (02) ==
LOC: JER 21:27 → JERBED 11-15 02:11 → J4W 11-15 16:42
PROVIDERS: ADMIT Internal Medicine; ATTEND Internal Medicine
PROC: 3E033NZ Introduction of Analgesics, Hypnotics, Sedatives into Peripheral Vein, Percutaneous Approach (ICD-10-PCS; principal; 2023-11-15)
PROC: 3E0F7GC Introduction of Other Therapeutic Substance into Respiratory Tract, Via Natural or Artificial Opening (ICD-10-PCS; 2023-11-15)
PROC: 3E033GC Introduction of Other Therapeutic Substance into Peripheral Vein, Percutaneous Approach (ICD-10-PCS; 2023-11-15)
PROC: 3E0337Z Introduction of Electrolytic and Water Balance Substance into Peripheral Vein, Percutaneous Approach (ICD-10-PCS; 2023-11-15)
DX: R06.02 Shortness of breath (principal); I10 Essential (primary) hypertension; R10.9 Unspecified abdominal pain; E78.5 Hyperlipidemia, unspecified; J44.9 Chronic obstructive pulmonary disease, unspecified; Z95.0 Presence of cardiac pacemaker; Z79.01 Long term (current) use of anticoagulants; R01.1 Cardiac murmur, unspecified; Z85.3 Personal history of malignant neoplasm of breast; Z90.10 Acquired absence of unspecified breast and nipple; Z87.442 Personal history of urinary calculi; R73.03 Prediabetes; F41.9 Anxiety disorder, unspecified; M19.90 Unspecified osteoarthritis, unspecified site; Z86.73 Personal history of transient ischemic attack (TIA), and cerebral infarction without residual deficits; Z91.013 Allergy to seafood
CPT/HCPCS: 0241U-QW; 36415; 71045-TC-FY; 71275-TC; 74174-TC; 80053; 81003; 82550; 83036; 83605; 83690; 83735; 83880; 84100; 84439; 84443; 84484; 85025; 85610; 93005; 93010; 93306-TC; 94640; 96374; 96375; 96376; 97116-GP; 97162-GP; 99285-25; G0378; J0131

== ENCOUNTER 2024-05-26 03:43 | Observation (INO) | payer MEDICARE, OTHER ==
[2024-05-26] MEDS ORDERED: ACETAMINOPHEN INJECTION 100 ML ONE ×2 (05:03→18:34)
[2024-05-26] MEDS: ACETAMINOPHEN 1000 MG/100 ML BAG IVPB ONE ×2 (05:06→18:39)
[2024-05-26 05:08] LABS: INR 0.99 (0.83-1.09); PROTHROMBIN TIME (PATIENT) 11.2 SEC (9.7-13.0)
[2024-05-26 05:10] LABS: ACTIVATED PTT 38.7 SECONDS (25.2-36.5)
[2024-05-26 05:38] LABS: POTASSIUM 5.2 mmol/L (3.5-5.1)
[2024-05-26 05:40] LABS: ALBUMIN 3.4 g/dl (3.4-5.0); BASO % 1.1 % (0-2.0); BLOOD UREA NITROGEN 28.1 mg/dL (7-18); EOS % 1.8 % (0-4.5); HEMATOCRIT 41.5 % (32.4-45.2); HEMOGLOBIN 13.8 GM/dL (10.7-15.3); LYMPH % 19.4 % (8-40); MCH 32.2 pg (25.7-33.7); MCHC 33.2 g/dl (32.0-36.0); MEAN PLT VOLUME 7.8 fl (7.5-11.1); MONO % 6.9 % (3.8-10.2); NEUT % 70.8 % (42.8-82.8); PLATELET COUNT 203 10^3/uL (134-434); RBC 4.27 M/mm3 (3.60-5.2); RDW 15.2 % (11.6-15.6); WHITE BLOOD COUNT 7.5 K/mm3 (4.0-10.0)
[2024-05-26 05:43] LABS: CREATININE 0.9 mg/dL (0.55-1.3)
[2024-05-26 05:44] LABS: BILIRUBIN,TOTAL 0.4 mg/dL (0.2-1); TOT PROT 6.8 g/dl (6.4-8.2)
[2024-05-26 11:02] LABS: EPI CELLS 14 /uL (0-25.1); HYALINE CASTS 0 /uL (0-3.1); URINE APPEARANCE CLEAR; URINE BACTERIA 164 /uL (0-1359); URINE BILIRUBIN NEGATIVE (NEGATIVE); URINE COLOR YELLOW; URINE GLUCOSE (UA) 3+ (NEGATIVE); URINE KETONE NEGATIVE (NEGATIVE); URINE LEUK ESTERASE NEGATIVE (NEGATIVE); URINE NITRITE NEGATIVE (NEGATIVE); URINE PROTEIN NEGATIVE (NEGATIVE); URINE RBC 66 /uL (0-23.9); URINE UROBILINOGEN 0.2 mg/dL (0.2-1.0); URINE WBC 8 /uL (0-25.8)
[2024-05-27 01:46] VITALS: BMI 30.4
[2024-05-27] MEDS: EMPAGLIFLOZIN (JARDIANCE) 10 MG TABLET PO SCH (06:40)
[2024-05-27 08:06] LABS: BASO % 0.3 % (0-2.0); EOS % 1.7 % (0-4.5); HEMATOCRIT 41.8 % (32.4-45.2); HEMOGLOBIN 13.8 GM/dL (10.7-15.3); LYMPH % 25.3 % (8-40); MEAN CELL VOLUME 96.7 fl (80-96); MEAN PLT VOLUME 7.7 fl (7.5-11.1); MONO % 6.7 % (3.8-10.2); RBC 4.32 M/mm3 (3.60-5.2); RDW 15.7 % (11.6-15.6); WHITE BLOOD COUNT 6.8 K/mm3 (4.0-10.0)
[2024-05-27 08:23] LABS: POTASSIUM 4.6 mmol/L (3.5-5.1)
[2024-05-27 08:26] LABS: CALCIUM 8.9 mg/dL (8.5-10.1)
[2024-05-27 08:27] LABS: BLOOD UREA NITROGEN 20.8 mg/dL (7-18)
[2024-05-27 08:28] LABS: N-TERMINAL BNP 2602.2 pg/ml (5-450)
[2024-05-27 08:29] LABS: CREATININE 0.8 mg/dL (0.55-1.3)
[2024-05-27 08:30] LABS: BILIRUBIN,TOTAL 0.5 mg/dL (0.2-1); TOT PROT 6.3 g/dl (6.4-8.2)
[2024-05-27 09:52] LABS: PLATELET COUNT 173 10^3/uL (134-434)
[2024-05-27] MEDS: SACUBITRIL/VALSARTAN 24 MG-26 MG TABLET PO SCH (09:53)
[2024-05-27] MEDS: APIXABAN 2.5 MG TABLET PO SCH (09:54)
[2024-05-27] MEDS: TAMOXIFEN CITRATE 10 MG TABLET PO SCH (10:24)
[2024-05-27] MEDS: ACETAMINOPHEN 325 MG TABLET (FP) PO PRN (12:28)
[2024-05-27] MEDS ORDERED: ATORVASTATIN CA 80 MG TABLET (FP) PO SCH (22:00)
[2024-05-27] MEDS ORDERED: PARoxetine HCL 20 MG TABLET PO SCH (22:00)
[2024-05-27] MEDS: ATORVASTATIN CA 20 MG TABLET (FP) PO SCH (22:35)
[2024-05-27] MEDS: PARoxetine HCL 10 MG TABLET PO SCH (22:35)
[2024-05-28] MEDS: SPIRONOLACTONE 25 MG TABLET PO SCH (09:42)
[2024-05-29] MEDS: FLUTICASONE/UMECLIDIN/VILANTER(200-62.5-25 TRELEGY ELLIPTA) INAHLER IH SCH (10:10)
[2024-05-29 22:06] VITALS: RESP 16
[2024-05-30] MEDS: SACUBITRIL/VALSARTAN 24 MG-26 MG TABLET PO ONE (02:39)
[2024-05-30 06:35] VITALS: PULSE 60
[2024-05-30] MEDS: POLYETHYLENE GLYCOL (HEALTHYLAX) 3350 17 GM PACKET PO SCH (09:35)
[2024-05-30 11:32] VITALS: BP 115/51; TEMP 97.9
== END 2024-05-30 11:35 | disposition home or self-care (01) ==
LOC: JER 03:43 → JERBED 07:20 → UNDOADMOB 07:20 → JERBED 23:10 → J4S 23:47 → INTOOBSV 05-27 15:54 → OBSVTOIN 05-27 15:54 → J4S 05-28 10:56 → JERBED 05-28 10:56
PROVIDERS: ADMIT Internal Medicine; ATTEND Internal Medicine
PROC: 3E033NZ Introduction of Analgesics, Hypnotics, Sedatives into Peripheral Vein, Percutaneous Approach (ICD-10-PCS; principal; 2024-05-28)
DX: R55 Syncope and collapse (principal); Z85.3 Personal history of malignant neoplasm of breast; I11.0 Hypertensive heart disease with heart failure; E78.5 Hyperlipidemia, unspecified; W18.39XA Other fall on same level, initial encounter; Y93.89 Activity, other specified; Y92.002 Bathroom of unspecified non-institutional (private) residence as the place of occurrence of the external cause; K29.70 Gastritis, unspecified, without bleeding; Z90.49 Acquired absence of other specified parts of digestive tract; Z90.10 Acquired absence of unspecified breast and nipple; Z91.013 Allergy to seafood
CPT/HCPCS: 0241U-QW; 36415; 70450-TC; 70486-TC; 71045-TC-FY; 72125-TC; 72170-TC-FY; 73110-TC-RT-FY; 73130-TC-RT-FY; 80053; 80061; 81003; 82550; 82962; 83880; 84439; 84443; 84484; 85025; 85610; 85730; 86850; 86900; 86901; 87086; 93005; 93010; 93306-TC; 93880-TC; 96374; 96376; 97116-GP; 97161-GP; 99285-25; G0378; J0131

== ENCOUNTER 2024-06-07 20:31 | Observation (INO) | payer MEDICARE, OTHER ==
[2024-06-07 20:44] VITALS: BMI 30.9
[2024-06-07 22:04] LABS: BASO % 0.9 % (0-2.0); EOS % 1.2 % (0-4.5); HEMATOCRIT 37.4 % (32.4-45.2); HEMOGLOBIN 12.5 GM/dL (10.7-15.3); LYMPH % 21.5 % (8-40); MCH 32.1 pg (25.7-33.7); MCHC 33.5 g/dl (32.0-36.0); MEAN CELL VOLUME 95.8 fl (80-96); MEAN PLT VOLUME 6.9 fl (7.5-11.1); MONO % 7.7 % (3.8-10.2); NEUT % 68.7 % (42.8-82.8); PLATELET COUNT 217 10^3/uL (134-434); RDW 15.9 % (11.6-15.6); WHITE BLOOD COUNT 8.3 K/mm3 (4.0-10.0)
[2024-06-07 22:18] LABS: POTASSIUM 4.5 mmol/L (3.5-5.1)
[2024-06-07 22:20] LABS: CALCIUM 8.6 mg/dL (8.5-10.1); INR 1.05 (0.83-1.09); PROTHROMBIN TIME (PATIENT) 11.9 SEC (9.7-13.0)
[2024-06-07 22:21] LABS: BLOOD UREA NITROGEN 27.3 mg/dL (7-18)
[2024-06-07 22:22] LABS: ACTIVATED PTT 31.6 SECONDS (25.2-36.5)
[2024-06-07 22:24] LABS: CREATININE 0.8 mg/dL (0.55-1.3)
[2024-06-07 22:25] LABS: BILIRUBIN,TOTAL 0.2 mg/dL (0.2-1)
[2024-06-07 22:26] LABS: TOT PROT 6.2 g/dl (6.4-8.2)
[2024-06-07] MEDS: SODIUM CHLORIDE 0.9% 500 ML INFUS.BAG IV ONE (23:59)
[2024-06-08 01:13] LABS: PH,URINE 5.5 (5.0-8.0); URINE APPEARANCE CLEAR; URINE BILIRUBIN NEGATIVE (NEGATIVE); URINE COLOR YELLOW; URINE GLUCOSE (UA) 3+ (NEGATIVE); URINE KETONE NEGATIVE (NEGATIVE); URINE LEUK ESTERASE NEGATIVE (NEGATIVE); URINE NITRITE NEGATIVE (NEGATIVE); URINE PROTEIN NEGATIVE (NEGATIVE); URINE UROBILINOGEN 0.2 mg/dL (0.2-1.0)
[2024-06-08] MEDS ORDERED: AZITHROMYCIN IVPB 500 MG/250 ML BAG IVPB ONE (01:17)
[2024-06-08] MEDS ORDERED: CEFTRIAXONE 1 GM/50 ML BAG ONE (01:17)
[2024-06-08] MEDS: CEFTRIAXONE 1,000 MG in DEXTROSE 5%-WATER - 50 ML IVPB ONE (01:25)
[2024-06-08] MEDS: AZITHROMYCIN IVPB 500 MG in DEXTROSE 5%-WATER - 250 ML IVPB ONE (01:52)
[2024-06-08 07:38] LABS: POTASSIUM 4.2 mmol/L (3.5-5.1)
[2024-06-08 07:41] LABS: CALCIUM 8.5 mg/dL (8.5-10.1)
[2024-06-08 07:42] LABS: BLOOD UREA NITROGEN 21.2 mg/dL (7-18)
[2024-06-08 07:45] LABS: CREATININE 0.7 mg/dL (0.55-1.3)
[2024-06-08 07:47] LABS: BASO % 0.8 % (0-2.0); EOS % 1.4 % (0-4.5); HEMATOCRIT 39.6 % (32.4-45.2); HEMOGLOBIN 12.9 GM/dL (10.7-15.3); LYMPH % 21.6 % (8-40); MCH 31.8 pg (25.7-33.7); MCHC 32.5 g/dl (32.0-36.0); MEAN CELL VOLUME 97.7 fl (80-96); MONO % 6.6 % (3.8-10.2); NEUT % 69.6 % (42.8-82.8); PLATELET COUNT 212 10^3/uL (134-434); RBC 4.05 M/mm3 (3.60-5.2); RDW 15.4 % (11.6-15.6); WHITE BLOOD COUNT 7.3 K/mm3 (4.0-10.0)
[2024-06-08] MEDS: APIXABAN 2.5 MG TABLET PO SCH (09:24)
[2024-06-08] MEDS: FLUTICASONE PROP 0.05% 16 GM NASAL SPRAY NS SCH (09:25)
[2024-06-08] MEDS: FUROSEMIDE 40 MG TABLET (FP) PO SCH (09:25)
[2024-06-08] MEDS: metoPROLOL SUCCINATE 25 MG TAB.SR.24H (FP) PO SCH (09:25)
[2024-06-08] MEDS: TAMOXIFEN CITRATE 10 MG TABLET PO SCH (09:26)
[2024-06-08] MEDS: SACUBITRIL/VALSARTAN 24 MG-26 MG TABLET PO SCH (09:27)
[2024-06-08 13:04] LABS: PHOSPHOROUS 3.8 mg/dL (2.5-4.9)
[2024-06-08] MEDS: ATORVASTATIN CA 20 MG TABLET (FP) PO SCH (21:14)
[2024-06-08] MEDS: PANTOPRAZOLE 40 MG TABLET PO SCH (21:14)
[2024-06-08] MEDS: ACETAMINOPHEN 1000 MG/100 ML BAG IVPB ONE (21:15)
[2024-06-10] MEDS ORDERED: metoPROLOL SUCCINATE 25 MG TAB.SR.24H (FP) PO SCH (11:58)
[2024-06-10] MEDS: metoPROLOL SUCCINATE 25 MG TAB.SR.24H (FP) PO ONE (13:02)
[2024-06-10] MEDS: ACETAMINOPHEN 325 MG TABLET (FP) PO PRN (13:02)
[2024-06-11] MEDS: metoPROLOL SUCCINATE 25 MG TAB.SR.24H (FP) PO SCH ×2 (10:33→12:12)
[2024-06-12 21:19] VITALS: RESP 16
[2024-06-13 06:22] VITALS: BP 120/65; PULSE 68; TEMP 97.3
== END 2024-06-13 12:15 | disposition home or self-care (01) ==
LOC: JER 20:31 → JERBED 06-08 02:45 → J4S 06-08 04:12
PROVIDERS: ADMIT Internal Medicine; ATTEND Internal Medicine
PROC: 3E03329 Introduction of Other Anti-infective into Peripheral Vein, Percutaneous Approach (ICD-10-PCS; principal; 2024-06-08)
PROC: 3E0337Z Introduction of Electrolytic and Water Balance Substance into Peripheral Vein, Percutaneous Approach (ICD-10-PCS; 2024-06-08)
DX: R55 Syncope and collapse (principal); M54.50 Low back pain, unspecified; W18.39XA Other fall on same level, initial encounter; Y93.89 Activity, other specified; I65.29 Occlusion and stenosis of unspecified carotid artery; Y92.002 Bathroom of unspecified non-institutional (private) residence as the place of occurrence of the external cause; E78.5 Hyperlipidemia, unspecified; I10 Essential (primary) hypertension; J45.909 Unspecified asthma, uncomplicated; Z95.0 Presence of cardiac pacemaker; Z79.01 Long term (current) use of anticoagulants; Z86.73 Personal history of transient ischemic attack (TIA), and cerebral infarction without residual deficits
CPT/HCPCS: 0241U-QW; 36415; 70450-TC; 71045-TC-FY; 72100-TC-FY; 72125-TC; 72170-TC-FY; 73562-TC-RT-FY; 80048; 80053; 80061; 81003; 83735; 83880; 84100; 84443; 84484; 85025; 85610; 85730; 86850; 86900; 86901; 87086; 93005; 93010; 93880-TC; 96365; 96368; 96375; 97116-GP; 97161-GP; 99285-25; G0378; J0131

== ENCOUNTER 2024-07-21 18:56 | Observation (INO) | payer MEDICARE, OTHER ==
[2024-07-21] MEDS ORDERED: ACETAMINOPHEN 325 MG TABLET (FP) ONE (20:58)
[2024-07-21] MEDS: ACETAMINOPHEN 500 MG TABLET (FP) PO ONE (21:52)
[2024-07-21 22:52] LABS: BASO % 0.5 % (0-2.0); EOS % 0.8 % (0-4.5); HEMATOCRIT 40.8 % (32.4-45.2); HEMOGLOBIN 13.7 GM/dL (10.7-15.3); LYMPH % 19.1 % (8-40); MCH 31.7 pg (25.7-33.7); MCHC 33.6 g/dl (32.0-36.0); MEAN CELL VOLUME 94.4 fl (80-96); MEAN PLT VOLUME 6.7 fl (7.5-11.1); MONO % 5.5 % (3.8-10.2); NEUT % 74.1 % (42.8-82.8); PLATELET COUNT 253 10^3/uL (134-434); RBC 4.32 M/mm3 (3.60-5.2); RDW 15.6 % (11.6-15.6); WHITE BLOOD COUNT 9.2 K/mm3 (4.0-10.0)
[2024-07-21 22:58] LABS: INR 1.08 (0.83-1.09); PROTHROMBIN TIME (PATIENT) 12.2 SEC (9.7-13.0)
[2024-07-21 23:01] LABS: ACTIVATED PTT 34.9 SECONDS (25.2-36.5)
[2024-07-21 23:09] LABS: POTASSIUM 4.4 mmol/L (3.5-5.1)
[2024-07-21 23:12] LABS: BLOOD UREA NITROGEN 22.6 mg/dL (7-18)
[2024-07-21 23:15] LABS: ALBUMIN 3.5 g/dl (3.4-5.0); CREATININE 0.9 mg/dL (0.55-1.3)
[2024-07-21 23:16] LABS: BILIRUBIN,TOTAL 0.4 mg/dL (0.2-1); TOT PROT 7.3 g/dl (6.4-8.2)
[2024-07-22 05:12] LABS: URINE APPEARANCE CLEAR; URINE COLOR YELLOW
[2024-07-22 05:13] LABS: URINE BILIRUBIN NEGATIVE (NEGATIVE); URINE GLUCOSE (UA) >1000 (NEGATIVE); URINE KETONE NEGATIVE (NEGATIVE)
[2024-07-22 05:14] LABS: URINE LEUK ESTERASE NEGATIVE (NEGATIVE); URINE NITRITE NEGATIVE (NEGATIVE); URINE PROTEIN NEGATIVE (NEGATIVE); URINE UROBILINOGEN 0.2 mg/dL (0.2-1.0)
[2024-07-22] MEDS: POLYETHYLENE GLYCOL (HEALTHYLAX) 3350 17 GM PACKET PO ONE (08:56)
[2024-07-22] MEDS ORDERED: ERGOCALCIFEROL (VIT D2) 50,000 UNIT (1.25 MG) CAPSULE PO SCH (10:00)
[2024-07-22] MEDS: APIXABAN 2.5 MG TABLET PO SCH (10:19)
[2024-07-22] MEDS: SACUBITRIL/VALSARTAN 24 MG-26 MG TABLET PO SCH (10:19)
[2024-07-22] MEDS: FUROSEMIDE 40 MG TABLET (FP) PO SCH (10:30)
[2024-07-22] MEDS: metoPROLOL SUCCINATE 25 MG TAB.SR.24H (FP) PO SCH ×2 (10:39→10:42)
[2024-07-22] MEDS: FLUTICASONE PROP 0.05% 16 GM NASAL SPRAY NS SCH (10:40)
[2024-07-22] MEDS: TAMOXIFEN CITRATE 10 MG TABLET PO SCH (11:46)
[2024-07-22] MEDS: DOCUSATE SODIUM 100 MG CAPSULE (FP) PO SCH (21:32)
[2024-07-22] MEDS: PARoxetine HCL 10 MG TABLET PO SCH (21:33)
[2024-07-22] MEDS: PANTOPRAZOLE 40 MG TABLET PO SCH (21:33)
[2024-07-22] MEDS ORDERED: ATORVASTATIN CA 20 MG TABLET (FP) PO SCH (22:00)
[2024-07-23 07:01] LABS: BASO % 0.9 % (0-2.0); EOS % 1.2 % (0-4.5); HEMATOCRIT 37.4 % (32.4-45.2); HEMOGLOBIN 12.1 GM/dL (10.7-15.3); LYMPH % 26.9 % (8-40); MCH 31.2 pg (25.7-33.7); MCHC 32.4 g/dl (32.0-36.0); MEAN CELL VOLUME 96.6 fl (80-96); MONO % 7.8 % (3.8-10.2); NEUT % 63.2 % (42.8-82.8); PLATELET COUNT 229 10^3/uL (134-434); RBC 3.88 M/mm3 (3.60-5.2); RDW 15.3 % (11.6-15.6); WHITE BLOOD COUNT 6.8 K/mm3 (4.0-10.0)
[2024-07-23 07:08] LABS: POTASSIUM 4.4 mmol/L (3.5-5.1)
[2024-07-23 07:11] LABS: CALCIUM 8.8 mg/dL (8.5-10.1)
[2024-07-23 07:12] LABS: BLOOD UREA NITROGEN 26.9 mg/dL (7-18); MAGNESIUM 2.2 mg/dL (1.8-2.4)
[2024-07-23 07:15] LABS: CREATININE 0.8 mg/dL (0.55-1.3); PHOSPHOROUS 4.4 mg/dL (2.5-4.9)
[2024-07-23] MEDS: metoPROLOL SUCCINATE 25 MG TAB.SR.24H (FP) PO ONE (11:14)
[2024-07-23 16:08] VITALS: RESP 18
[2024-07-23] MEDS: ACETAMINOPHEN 325 MG TABLET (FP) PO PRN (21:22)
[2024-07-23 21:51] VITALS: BMI 18.7
[2024-07-24] MEDS: metoPROLOL SUCCINATE 25 MG TAB.SR.24H (FP) PO SCH (10:25)
[2024-07-24 20:42] VITALS: BP 104/62; PULSE 60; TEMP 98.4
== END 2024-07-24 21:48 ==
LOC: JER 18:56 → JERBED 07-22 01:35 → J4W 07-22 05:31
PROVIDERS: ADMIT Student in an Organized Health Care Education/Training Program; ATTEND Internal Medicine
DX: R55 Syncope and collapse (principal); I10 Essential (primary) hypertension; I65.21 Occlusion and stenosis of right carotid artery; X58.XXXA Exposure to other specified factors, initial encounter; Y93.89 Activity, other specified; Y92.092 Bedroom in other non-institutional residence as the place of occurrence of the external cause; J44.9 Chronic obstructive pulmonary disease, unspecified; Z95.0 Presence of cardiac pacemaker; E78.5 Hyperlipidemia, unspecified; K21.9 Gastro-esophageal reflux disease without esophagitis; Z86.73 Personal history of transient ischemic attack (TIA), and cerebral infarction without residual deficits; R29.6 Repeated falls; Z90.10 Acquired absence of unspecified breast and nipple; R01.1 Cardiac murmur, unspecified; Z79.01 Long term (current) use of anticoagulants; I89.0 Lymphedema, not elsewhere classified; Z85.3 Personal history of malignant neoplasm of breast; E87.1 Hypo-osmolality and hyponatremia
CPT/HCPCS: 0241U-QW; 36415; 70450-TC; 70486-TC; 71045-TC-FY; 71275-TC; 72125-TC; 72170-TC-FY; 73030-TC-RT-FY; 73070-TC-RT-FY; 73560-TC-RT-FY; 80048; 80053; 81003; 83735; 84100; 84484; 85025; 85610; 85730; 87086; 93005; 93010; 97116-GP; 97162-GP; 99285-25; G0378; Q9967

== ENCOUNTER 2024-11-05 14:22 | Emergency (ER) | payer MEDICARE, OTHER ==
[2024-11-05 14:31] VITALS: TEMP 98.5; BMI 19.3
[2024-11-05 16:27] LABS: BASO % 0.5 % (0-2.0); EOS % 1.3 % (0-4.5); HEMATOCRIT 35.4 % (32.4-45.2); HEMOGLOBIN 11.5 GM/dL (10.7-15.3); LYMPH % 24.5 % (8-40); MCH 29.7 pg (25.7-33.7); MCHC 32.6 g/dl (32.0-36.0); MEAN CELL VOLUME 91.2 fl (80-96); MEAN PLT VOLUME 8.3 fl (7.5-11.1); MONO % 6.8 % (3.8-10.2); NEUT % 66.9 % (42.8-82.8); PLATELET COUNT 257 10^3/uL (134-434); RBC 3.88 M/mm3 (3.60-5.2); RDW 16.5 % (11.6-15.6); WHITE BLOOD COUNT 6.4 K/mm3 (4.0-10.0)
[2024-11-05 16:32] LABS: ALBUMIN 2.9 g/dl (3.4-5.0); BLOOD UREA NITROGEN 24.3 mg/dL (7-18); CALCIUM 7.8 mg/dL (8.5-10.1)
[2024-11-05 16:36] LABS: CREATININE 0.9 mg/dL (0.55-1.3)
[2024-11-05 16:37] LABS: BILIRUBIN,TOTAL 0.3 mg/dL (0.2-1); TOT PROT 6.6 g/dl (6.4-8.2)
[2024-11-05 16:38] LABS: INR 1.16 (0.83-1.09); PROTHROMBIN TIME (PATIENT) 12.8 SEC (9.7-13.0)
[2024-11-05 16:41] LABS: ACTIVATED PTT 30.7 SECONDS (25.2-36.5)
[2024-11-05] MEDS ORDERED: ACETAMINOPHEN INJECTION 100 ML ONE (17:57)
[2024-11-05] MEDS ORDERED: MECLIZINE HCL 25 MG TABLET (FP) PO PRN (18:15)
[2024-11-05] MEDS: ACETAMINOPHEN 1000 MG/100 ML BAG IVPB ONE (18:22)
[2024-11-05 21:26] VITALS: BP 101/65; PULSE 62; RESP 17
[2024-11-05] MEDS ORDERED: PANTOPRAZOLE 40 MG TABLET PO SCH (22:00)
[2024-11-05] MEDS ORDERED: APIXABAN 2.5 MG TABLET PO SCH (22:00)
[2024-11-05] MEDS ORDERED: PARoxetine HCL 10 MG TABLET PO SCH (22:00)
[2024-11-05] MEDS ORDERED: SACUBITRIL/VALSARTAN 24 MG-26 MG TABLET PO SCH (22:00)
[2024-11-05] MEDS ORDERED: ATORVASTATIN CA 20 MG TABLET (FP) PO SCH (22:00)
[2024-11-05] MEDS ORDERED: DOCUSATE SODIUM 100 MG CAPSULE (FP) PO SCH (22:00)
[2024-11-06] MEDS ORDERED: EMPAGLIFLOZIN (JARDIANCE) 10 MG TABLET PO SCH (07:00)
[2024-11-06] MEDS ORDERED: CHOLECALCIFEROL (VIT D3) 1,000 UNIT (25 MCG) TABLET PO SCH (10:00)
[2024-11-06] MEDS ORDERED: TAMOXIFEN CITRATE 10 MG TABLET PO SCH (10:00)
[2024-11-06] MEDS ORDERED: metoPROLOL SUCCINATE 25 MG TAB.SR.24H (FP) PO SCH (10:00)
[2024-11-06] MEDS ORDERED: FLUTICASONE/UMECLIDIN/VILANTER(200-62.5-25 TRELEGY ELLIPTA) INAHLER IH SCH (10:00)
== END 2024-11-05 21:19 | disposition short-term general hospital (02) ==
LOC: JER 14:22
DX: I72.8 Aneurysm of other specified arteries (principal); R42 Dizziness and giddiness; R29.898 Other symptoms and signs involving the musculoskeletal system
CPT/HCPCS: 36415; 70450-TC; 70496-TC; 70498-TC; 80053; 84132; 84484; 85025; 85610; 85730; 86850; 86900; 86901; 93005; 93010; 99285-25; Q9967